=== PATIENT | male | born 1970 | race Caucasian/White ===

== ENCOUNTER → 2019-11-07 10:31 | Outpatient (BNVA) | payer OTHER, SELFPAY | PROVIDERS: Visit Provider Surgery | DX: Z20.828 Contact with and (suspected) exposure to other viral communicable diseases (principal) | CPT/HCPCS: 87635 ==

== ENCOUNTER 2019-11-09 07:33 | Day surgery (SDC) | payer SELFPAY ==
[2019-11-08 13:47] VITALS: BMI 31.1
[2019-11-09 07:47] VITALS: BP 119/69; PULSE 95; RESP 20; TEMP 37; O2SAT 97
[2019-11-09] MEDS: sodium chloride 0.9% 1,000 ML 30 ML IV (07:58)
--- NOTE | 2019-11-09 08:10 | ANES.PREANE2 ---
Pre-Anesthetic Assessment Pre-Anesthetic Assessment: Height/Weight: Height 1.83 m Weight 104.326 kg Temp Pulse Resp BP Pulse Ox 98.6 F 95 20 H 119/69 97 11/09/19 07:47 11/09/19 07:47 11/09/19 07:47 11/09/19 07:47 11/09/19 07:47 Preop Diagnosis: Generalized lymphadenopathy Proposed Procedure: Operation Date: 11/09/19 09:05 Proposed Procedures p Cervical lymph node biopsy [id number] R59.1(Not Applicable) - Owen Contreras MD Familial anesthetic complications: None Was Beta Gill taken within 24 hours: N/A Last intake: Intake Last Liquid Date 11/09/19 Last Liquid Time 06:00 Last Solid Date 11/08/19 Last Solid Time 17:30 Social: Social History: No alcohol and No tobacco Exam: Pre-Anes Outpt Exam: alert, oriented x 3, clear to auscultation bilaterally and regular rate & rhythm Airway: Cervical ROM: WNL MP: 4 Dentition: Chipped Pulmonary: Pulmonary: Cough Comments: Dry cough which patient states is due to pressure from the lymph node on calli neck. patient denies trouble swallowing, changes in voice, or sob Metabolic: Metabolic: Thyroid Anesthetic Plan: ASA status: 3 Anesthesia: MAC Risk of > 500 ml blood loss (7ml/kg in children): No Meds/Allergies Current Medications: Current Medications Generic Name Dose Route Start Last Admin Trade Name Freq PRN Reason Stop Dose Admin Sodium Chloride 1,000 mls @ 30 ml s/hr 11/09/19 07:00 11/09/19 07:58 Sodium Chloride 0.9% IV 11/10/19 06:59 30 mls/hr .Q24H SCOTTIE Administration PFSH Anesthesia PFSH: Medical History (Updated 11/04/19 @ 16:21 by Owen Contreras MD) Anemia Hypothyroid Social History Smoking and tobacco status: never smoked Alcohol intake: never Lives independently: Yes Household members: spouse Marital status: Current occupational status: employed History of recent travel: No Data Anesthesia Cardiac Studies: No Data to Display
--- NOTE | 2019-11-09 08:23 | W.PM.OPSUD ---
Surgery/Procedure H&P Update DATE OF PROCEDURE: November 09, 2019 DATE H&P PERFORMED: 11/04/19 H&P UPDATE INFORMATION: I have reviewed H&P completed within last 30 days, I have examined patient prior to procedure and No changes to prior documentation PREOP DIAGNOSIS: Generalized lymphadenopathy PLANNED PROCEDURE: Operation Date: 11/09/19 09:05 Proposed Procedures p Cervical lymph node biopsy 96307 R59.1(Not Applicable) - Owen Contreras MD
[2019-11-09] MEDS: lidocaine 1% INJ 20 mL SUBCUT (10:00)
[2019-11-09 10:31] VITALS: BP 105/63; PULSE 86; RESP 18; TEMP 36.4; O2SAT 100
[2019-11-09 11:01] VITALS: BP 107/76; PULSE 85; RESP 18; O2SAT 98
--- NOTE | 2019-11-09 11:25 | ANE.PACU2 ---
Inpatient post-anesthesia follow up: Airway intact: Yes Vital signs: Temperature 97.5 F Pulse Rate 85 Respiratory Rate 18 Blood Pressure 107/76 Pulse Oximetry 98 Oxygen Delivery Me thod Room Air Oxygen Flow Rate Fraction of Inspir ed Oxygen Hydration adequate: Yes Nausea and vomiting: No Pain level: 2 Mental status: Baseline
--- NOTE | 2019-11-13 14:05 | PM.OP ---
Operative Report Date of procedure: 11/09/2019 Pre-op Diagnosis: Generalized lymphadenopathy Post-op diagnosis: same Procedure Done: Right posterior triangle deep cervical lymph node biopsy Pathology: Deep cervical lymph node Surgeon: Owen Contreras Anesthesia: MAC Estimated blood loss (mL): 10 Condition: stable Disposition: same day Procedure: The patient was taken to the operating room and placed under MAC after IV antibiotic had been administered. The right side of the neck was prepped and draped in a sterile manner. 1% lidocaine with 0.5% Marcaine was infiltrated around the palpable lymph node posterior to the right sternocleidomastoid. Using a 15 blade a 3 cm incision was made, subcutaneous tissue was divided and the cervical fascia was excised to identify multiple lymph nodes in the posterior triangle. The lymph nodes were grasped and dissected from the surrounding muscle and the lymphovascular bundle was clipped using 5 mm clips. The specimens were sent in saline to pathology. The wound was irrigated saline, superficial fascia is approximated using interrupted 3-0 Vicryl suture and skin was closed using running subcuticular 4-0 Monocryl suture and surgical glue. The patient was transferred to recovery room in stable condition.
[2019-12-14 11:07] LABS: Miscellaneous Test See Scanned Lab Rpt
== END 2019-11-09 11:31 | disposition home or self-care (01) ==
PROVIDERS: PCP Nurse Practitioner Family; Visit Provider Surgery
PROC: (CPT 38525; principal; 2019-11-09 09:05)
DX: R59.1 Generalized enlarged lymph nodes (principal); E03.9 Hypothyroidism, unspecified
CPT/HCPCS: 38525; 12345; 88305; J0690; J2250; J2704; J3490; J7030

== ENCOUNTER 2019-12-06 13:56 | Outpatient (CLI) | payer SELFPAY ==
[2019-12-06 15:50] LABS: Basophils % 0.4 %; Eosinophils # 0.2 10^3/uL (0.0-0.8); Eosinophils % 4.1 %; Lymphocytes # 1.7 10^3/uL (0.8-4.8); Mean Corpuscular HGB Conc 27.7 g/dL (30.0-36.0); Mean Corpuscular Hemoglobin 26.8 pg (28.0-34.0); Mean Corpuscular Volume 96.5 fL (80-94); Mean Platelet Volume 9.7 fL (7.4-10.4); Monocytes # 0.5 10^3/uL (0.2-0.9); Monocytes % 9.2 %; Neutrophils # 2.93 10^3/uL (1.8-7.7); Neutrophils % 51.7 %; Nucleated Red Blood Cells % 0.5 %; Platelet Count 157 10^3/cmm (130-400); Red Blood Count 1.98 10^6/uL (4.1-5.3); Red Cell Distribution Width 21.2 % (12.1-15.1); White Blood Count 5.7 10^3/uL (4.0-10.0)
[2019-12-06 16:20] LABS: Alanine Aminotransferase < 5 U/L (0-41); Albumin Level 3.3 g/dL (3.5-5.2); Alkaline Phosphatase 118 IU/L (40-130); Anion Gap 13.4 (5-19); Aspartate Amino Transferase 20 U/L (0-40); Blood Urea Nitrogen 17 mg/dL (6-20); Calcium 8.8 mg/dL (8.5-10.5); Carbon Dioxide 26 mmol/L (22-29); Chloride 98 mmol/L (98-107); Globulin 3.2 g/dL (1.3-4.6); Glomerular Filtration Rate 42.7 mL/min (90-130); Glucose 108 mg/dL (65-115); Immunoglobulin IGA 104 mg/dL (70-400); Immunoglobulin IGG 1211 mg/dL (700-1600); Immunoglobulin IGM 52 mg/dL (40-230); Lactate Dehydrogenase 311 U/L (135-225); Osmolality Calculated 278 mOsm/kg (285-295); Potassium 4.4 mmol/L (3.5-5.1); Sodium 133 mmol/L (136-145); Total Bilirubin 0.4 mg/dL (0.15-1.2); Total Protein 6.5 g/dL (6.6-8.7)
[2019-12-06 16:30] LABS: Hematocrit 19.1 % (42.0-52.0); Hemoglobin 5.3 g/dL (11.7-16.6)
[2019-12-06 16:31] LABS: Slide Review Slide Review Perform
--- NOTE | 2019-12-06 17:34 | ONC CON_ITS ---
Dr. Mclean New Patient Note Patient: Zhen Reardon Unit #: [id number]: [id number] Dicatated By: aMrci Mclean M.D.Date of Visit: Dec 06, 2019 Onc MED New Patient/Consult Referring Physician: Fletcher MISHRA History of Present Illness: Mr. Zhen Mayfield, is a 49-year-old gentleman with newly diagnosed grade 3A follicular lymphoma per right posterior triangle cervical lymph node biopsy done on November 09, 2019. As per patient, he was in his usual health until about 3 months ago when he started having dry cough and subsequently started feeling weak and tired followed by night sweats and weight loss and generalized body aches and pain requiring Percocet went to see his primary care physician CT scan of chest abdomen pelvis was ordered which showed bulky lymphadenopathy in left axilla, upper anterior and middle mediastinum and also right axillary lymph node involvement. His subcarinal lymph node measures up to 5.1 x 2.6 cm and left axillary lymph node measures up to 4 x 3.7 cm and right axillary lymph node 4.1 x 1.5 cm and numerous enlarged internal mammary chain lymph nodes, lung field no abnormality seen no bony destruction seen, CT scan of abdomen and pelvis showed extensive intra-abdominal lymphadenopathy with massive splenomegaly size about 22 cm, and extensive retroperitoneal, mesenteric, portal adenopathy largest node is in the lindsay hepatis measuring 8.1 x 5.3 x 6.4 cm and numerous bulky masses are observed above this level in periaortic paracaval retroperitoneum and throughout both iliac chains and obturator chains in the lower pelvis no bony lytic lesions seen. No free air seen. Patient was referred to surgery for cervical lymph node biopsy which was done on November 09, 2019 and the final pathology report came back follicular lymphoma, grade 3A, (more than 15 centroblast per high-power field)Immunohistochemistry positive for CD20, PAX 5, CD10, BCL-2, BCL 6 with partial and weakly positive. And Ki-67 was 35 to 40%, MUM1 positive and focus which is partially lacking BCL-2, as per pathology, signifies a higher-grade and consistent with grade 3A. Patient also has significant B symptoms drenching sweating, weight loss more than 10 pounds in the last couple of months despite of good appetite but no fever probably masked by Tylenol in Percocet. Patient also complaining of generalized weakness and fatigue, as per patient he was diagnosed with anemia and now taking oral iron supplement, helping him somewhat. Denies any melena or hematochezia, denies any jaundice, denies any hemoptysis or hematemesis, denies any hematuria but generalized weakness and fatigue and dyspnea on exertion. Patient denies smoking or alcohol use. No family history of lymphoma or blood disorder. Past Medical History: Mr. Reardon's medical history consists of anemia and hypothyroidism. Past Surgical History: Mr. Concepcion surgical/procedural history consists of lymph node removal from neck. Medications: Ferrous Sulfate 1 Tablet (of 325 (65 fe) mg) Oral b.i.d., HYDROcodone-Acetaminophen 1 Tablet (of 5-325 mg) Oral b.i.d., Levothyroxine Sodium 1 Tablet (of 25 mcg) Oral daily Allergies: No Known Allergies. Social History: Mr. Reardon is . Mr. Reardon has never smoked. He has no history of drinking. Family History: Mr. Reardon's mother is : ovarian cancer. Mr. Reardon's father is . Mr. Reardon's maternal grandmother is : myocardial infarction. His maternal grandfather is . His paternal grandmother is . His paternal grandfather is . Review Of Symptoms: Constitutional - Appetite is good but weight is decreasing. No fever. Positive for night sweats. No hot flashes. Energy level is poor, ENMT - No sinus congestion/drainage. No mouth sores. No sore throat or difficulty swallowing, Hematologic/Lymphatic - Positive for easy bruising and bleeding, Respiratory - Positive for shortness of breath and cough. No pleuritic pain or hemoptysis, Cardiovascular - No angina pain. No palpitations, Gastrointestinal - No nausea or vomiting. No heartburn or acid reflux. No diarrhea. Positive for constipation. No blood in the stool or black stools, Genitourinary (M) - No dysuria or hematuria. No urinary frequency. No urgency or incontinence, Musculoskeletal - No joint or bone pain, Neurologic - No headache or dizziness. No numbness or tingling. No other focal neurologic symptoms, Psychiatric - No anxiety or depression. No insomnia. Vital Signs: Performed on Dec 06, 2019 14:35: 0, 40.97 (HIGH), 2.01 sq.m, 62 in, 96 %, 108 /min (HIGH), 19 /min, 118/61 mm(hg), 97.6 F (LOW), and 224 lbs (HIGH). Performance Status: 1 - No physically strenuous activity, but ambulatory and able to carry out light or sedentary work (e.g. office work, light house work). (ECOG) Physical Examination: ENMT - , No mouth sores, no thrush, no jaundice bilateral cervical lymphadenopathy and bilateral axillary lymphadenopathy about 5 cm in size,, Respiratory - Lungs are clear to auscultation, Cardiovascular - Regular rate and rhythm of heart With a flow murmur, Abdomen - Soft, bowel sounds present large spleen palpable in left abdomen, Extremities - No visible edema. Lab/Imaging: Most recent lab results are not available for this patient. Impression: Follicular lymphoma grade 3A per right posterior triangle cervical lymph node biopsy done on November 09, 2019, 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 Ki-67 proliferation index 30 to 40% and MUM1, positive and focus which is partially lacking BCL-2, as per pathology signifies a high-grade and consistency with grade 3A CT scan of chest abdomen pelvis done on November 01, 2019 showed extensive, bulky bilateral axillary lymphadenopathy left axillary lymph node 4 x 3.7 cm right axillary lymph node 4.1 x 1.5 cm and middle mediastinum and anterior mediastinal lymphadenopathy, subcarinal lymph node 5.1 x 2.6 cm and numerous enlarged internal mammary chain lymph nodes and extensive retroperitoneal para-aortic, paracaval lymphadenopathy and largest mass 8.1 x 5.3 x 6.4 cm in the lindsay hepatis posterior to the pancreatic head and anterior to inferior vena cava and numerous bulky masses are observed above this level in the lindsay, throughout the periaortic and paracaval, retroperitoneal and both iliac chain and obturator chains on.pelvis. But no bone abnormality seen and massive splenomegaly size were 22 cm., Clinically, high risk, bulky disease, Poor prognostic features including more than 3 lymph node sites more than 3 cm/more than 7 cm, with B symptoms, anemic and with spleen involvement Anemia, on oral iron per PMD Plan: Discussed with patient regarding his disease status and treatment options, at this point we will proceed with staging work-up which include CT PET scan and also consider Port-A-Cath placement and echocardiogram to assess cardiac status and also obtain baseline CBC CMP and LDH, his previous lab work-up is not available to us at this point, clinically patient looks pale, lethargic could be due to severe anemia. We will obtain stat CBC and CMP, as mentioned above discussed with patient regarding clinical trial, patient would consider evaluation at lymphoma clinic at [place], if clinical trial is available. Otherwise we will consider systemic chemoimmunotherapy, if echocardiogram shows normal ejection fraction, will consider R-CHOP otherwise bendamustine/Rituxan, being high risk, followed by maintenance therapy with Rituxan. Unless patient opted for clinical trial. We will refer him to lymphoma clinic at [place]. In the meantime we will obtain CT PET scan to complete staging work-up and echocardiogram as mentioned above and Port-A-Cath placement.Patient return to clinic after CT PET scan and echocardiogram Signed By: Marci Mclean M.D. <<Signature on File>>
== END 2019-12-06 13:57 | disposition home or self-care (01) ==
LOC: ONCMED 14:01
PROVIDERS: PCP Nurse Practitioner Family; Visit Provider Internal Medicine Hematology & Oncology
DX: C82.38 Follicular lymphoma grade IIIa, lymph nodes of multiple sites (principal); D64.9 Anemia, unspecified
CPT/HCPCS: 36415; 80053; 82784; 83615; 85025; 99205

== ENCOUNTER 2019-12-06 18:49 | Observation (INO) | payer SELFPAY ==
[2019-12-06] VITALS (9 sets, daily range): BP systolic 109–120; BP diastolic 59–74; PULSE 88–103; RESP 14–21; TEMP 36.8–37.2; O2SAT 92–99; BMI 30.9
--- NOTE | 2019-12-06 19:12 | W.ED.GENADLT ---
HPI - General Adult General: Chief complaint: General Medical Stated complaint: phy ref Time Seen by Provider: 12/06/19 19:08 Source: patient Mode of arrival: ambulatory Limitations: no limitations History of Present Illness: HPI narrative: 49-year-old male who is just very recently diagnosed with lymphoma. He been having generalized weakness for the last [address] Lim today to discuss starting treatment options. Dr. Mclean ordered a CBC as he stated he looked pale at his office. Patient's blood came back at 5.6. Patient is pale here. He denies any blood in his stools. Denies any worsening or improving factors. Associated symptoms: Deny chest pain, dyspnea, headache(s), nausea, rash or vomiting Review of Systems Const: Denies: fever(s), chills, body aches or change in appetite Eyes: Denies: blurry vision or eye discomfort ENMT: Denies: throat pain or dental pain Card: Denies: chest pain Resp: Denies: dyspnea GI: Denies: abdominal pain, nausea, vomiting or diarrhea : Denies: dysuria Musc: Reports: muscle weakness Skin/Breast: Denies: rash Neuro: Denies: headache(s) Psych: Denies: depression Ishan/Lymph: Denies: easy bruising All/Imm: Denies: urticaria PFSH ED PFSH: Medical History Anemia Hypothyroid Surgical History S/P lymph node biopsy (11/09/19) Social History Smoking and tobacco status: never smoked Alcohol intake: never Lives independently: Yes Household members: spouse Marital status: Current occupational status: employed History of recent travel: No Physical Exam Const: COMMON NORMALS: no acute distress, patient oriented x3 and healthy appearing HENMT: COMMON NORMALS: normocephalic and atraumatic HEAD & SCALP: normocephalic and atraumatic Eye: COMMON NORMALS: Equal, round and reactive pupils present and EOMs intact bilaterally PUPIL: Yes Equal, round and reactive pupils present Neck/C-Spine: COMMON NORMALS: full ROM and supple Chest: COMMONS NORMALS: normal inspection of the chest and normal palpation of entire chest wall Resp: COMMON NORMALS: normal respiratory effort, No retractions, No use of accessory muscles and clear to auscultation bilaterally AUSCULTATION: clear to auscultation bilaterally Cardio: COMMON NORMALS: regular rate, regular rhythm and No murmurs present (Cardio) RATE: regular rate RHYTHM: regular rhythm GI: COMMON NORMALS: Normal to inspection, nondistended, normoactive bowel sounds present, Soft to palpation, non-tender and no masses PALPATION: Yes Soft to palpation Extremity: COMMON NORMALS: normal to inspection and full ROM Neuro: COMMON NORMALS: patient oriented x3, moves all extremities and no focal motor deficits Psych: COMMON NORMALS: mental status grossly normal, Normal thought process present and cooperative THOUGHT PROCESS: Normal thought process present Skin: COMMON NORMALS: no rashes or lesions noted and no wounds GENERAL SKIN EXAM: no rashes or lesions noted OTHER: pale Course Vital Signs: Vital signs: Vital Signs Temperature 98.3 F 12/06/19 18:58 Pulse Rate 103 H 12/06/19 18:58 Respiratory Rate 16 12/06/19 18:58 Blood Pressure 109/65 12/06/19 18:58 Pulse Oximetry 97 12/06/19 18:58 MDM - General Adult MDM Narrative: Medical decision making narrative: Patient presents here with anemia likely from his lymphoma. This is likely been chronic in nature as he is normotensive here. Patient's CBC today hemoglobin showed 5.3. I spoke to hospitalist and will admit at this time and transfuse. Discharge Plan Discharge Patient Disposition: Admitted As Inpatient Clinical Impression: Lymphoma Anemia Qualifiers: Anemia type: unspecified type Qualified Code(s): D64.9 - Anemia, unspecified Condition: Stable Referrals: Sarai Watt [Primary Care Provider] - Coding Level of Care Code ED Bonderizer Operator for [facility] Fwd Exam Comprehensive
[2019-12-06 19:42] LABS: Mean Corpuscular Hemoglobin 26.9 pg (28.0-34.0); Mean Corpuscular Volume 96.2 fL (80-94); Mean Platelet Volume 9.4 fL (7.4-10.4); Platelet Count 161 10^3/cmm (130-400); Red Blood Count 1.82 10^6/uL (4.1-5.3); Red Cell Distribution Width 21.2 % (12.1-15.1); White Blood Count 5.5 10^3/uL (4.0-10.0)
[2019-12-06 19:45] LABS: Hematocrit 17.5 % (42.0-52.0); Hemoglobin 4.9 g/dL (11.7-16.6)
[2019-12-06 19:57] LABS: Alanine Aminotransferase < 5 U/L (0-41); Albumin Level 2.9 g/dL (3.5-5.2); Alkaline Phosphatase 113 IU/L (40-130); Anion Gap 13.2 (5-19); Aspartate Amino Transferase 20 U/L (0-40); Blood Urea Nitrogen 18 mg/dL (6-20); Calcium 8.7 mg/dL (8.5-10.5); Carbon Dioxide 24 mmol/L (22-29); Chloride 99 mmol/L (98-107); Globulin 3.3 g/dL (1.3-4.6); Glucose 126 mg/dL (65-115); Osmolality Calculated 277 mOsm/kg (285-295); Potassium 4.2 mmol/L (3.5-5.1); Sodium 132 mmol/L (136-145); Total Bilirubin 0.4 mg/dL (0.15-1.2); Total Protein 6.2 g/dL (6.6-8.7)
--- NOTE | 2019-12-06 20:03 | P.HP_ITS ---
Providers/Chief Complaint Primary Care Provider: Sarai Watt Chief Complaint: phy ref History of Present Illness Zhen Reardon is a 49 year old male recently diagnosed to have grade 3A follicular lymphoma based on lymph node biopsy (cervical) after presenting in late October with generalized lymphadenopathy, night sweats, weight loss and fatigue. He is also noted to have extensive mediastinal and retroperitoneal lymphadenopathy. He saw Dr. Mclean in the office today as a new visit and was found to have profound anemia with ~Hb 5. Referred to ER for severe anemia to receive blood transfusion. last known Hb per patient history from 3 months dany was at 7.5. In the ER vital signs stable, except for tacycardia transiently at 130bpm. Quite pale appearing. Denies chest pain or dyapnea. Denies any melena or hematochezia, denies any jaundice, denies any hemoptysis or hematemesis, denies any hematuria. Patient denies smoking or alcohol use. BM biopsy planned as outpatient per him From a disease standpoint he is planned for PET/CT for staging, portacath placement and echocardiogram and then possible chrmoimmunotherapy vs clinical trial consideration at [place]. Review of Systems General: Reports: 10 or more systems reviewed and unremarkable except in HPI and below Const: Reports: body aches; Denies: fever(s) or chills Eyes: Denies: change in vision, blurry vision or photophobia ENMT: Denies: throat pain, enlarged tonsils, odynophagia, hoarseness or nasal congestion Card: Reports: palpitations; Denies: chest pain, irregular heart rhythm, edema, swelling of feet/ankles, lightheadedness, pre-syncope, dyspnea on exertion or orthopnea Resp: Denies: dyspnea, productive cough, non-productive cough, wheezing, stridor, pain on inspiration, change in phlegm color, hemoptysis or chest congestion GI: Denies: abdominal pain, nausea, vomiting, hematemesis, coffee ground emesis, dysphagia, heartburn, diarrhea, constipation, GI cramping, change in stool character, hematochezia or melena : Denies: flank pain, dysuria, urinary frequency, urinary urgency, urinary hesitancy or hematuria Musc: Denies: neck pain, back pain, extremity pain, joint swelling, joint warmth or deformity Neuro: Denies: headache(s), numbness in extremities, weakness in extremities, sensory changes, difficulty walking, frequent falls, dizziness, vertigo, behavioral changes, Slurred speech present or seizure-like activity Psych: Denies: anxiety, depression, suicidal ideation or homicidal ideation Endo: Denies: polyuria, polydipsia, tired all the time, cold intolerance or hot flashes Ishan/Lymph: Denies: easy bruising or easy bleeding Medications/Allergies Home Medications Medication Instructions Recorded Confirmed Last Taken Type ferrous sulfate 325 mg (65 mg 325 mg PO BID 11/04/19 12/06/19 12/06/19 History iron) tablet levothyroxine 25 mcg capsule 25 mcg PO DAILY 11/04/19 12/06/19 12/06/19 History hydrocodone 5 mg-acetaminophen 325 1 tab PO Q6H PRN 7 Days #20 tab 11/23/19 12/06/19 12/06/19 Rx mg tablet Allergies Allergy/AdvReac Type Severity Reaction Status Date / Time No Known Allergies Allergy Verified 12/06/19 19:02 PFSH Acute PFSH: Medical History (Updated 12/07/19 @ 00:20 by Melida Muñoz MD) Anemia Hypothyroid Lymphoma Surgical History S/P lymph node biopsy (11/09/19) Family History Other CAD (coronary artery disease) Cancer Social History Smoking and tobacco status: never smoked Alcohol intake: never Lives independently: Yes Household members: spouse Marital status: Current occupational status: employed History of recent travel: No Vitals/I&O/Wt Last Vital Signs Temp 98.3 F 12/06/19 18:58 Pulse 99 12/06/19 19:19 Resp 17 12/06/19 19:19 BP 120/69 12/06/19 19:19 Pulse Ox 92 12/06/19 19:19 Weight last 48 hrs Weight 103.419 kg Physical Exam Const: COMMON NORMALS: no acute distress, average body habitus, patient oriented x3, no limitations and alert; negative for healthy appearing HENMT: COMMON NORMALS: normocephalic and atraumatic HEAD & SCALP: normocephalic and atraumatic Eye: COMMON NORMALS: Equal, round and reactive pupils present, EOMs intact bilaterally, conjunctivae normal and no scleral icterus CONJUNCTIVA: Yes conjunctivae normal PUPIL: Yes Equal, round and reactive pupils present OTHER: Pallor+ Neck/C-Spine: COMMON NORMALS: no JVD Resp: COMMON NORMALS: normal respiratory effort, No retractions, No use of accessory muscles, clear to auscultation bilaterally and percussion normal AUSCULTATION: clear to auscultation bilaterally PERCUSSION: percussion normal Cardio: COMMON NORMALS: no JVD, regular rate, regular rhythm, S1 normal heart sound present, S2 normal heart sound present, No gallops present (Cardio), No clicks present (Cardio), No murmurs present (Cardio), No rub (Cardio) and Peripheral pulses 2+ throughout RATE: regular rate RHYTHM: regular rhythm HEART SOUNDS: S1 normal heart sound present and S2 normal heart sound present PERIPHERAL PULSES: Peripheral pulses 2+ throughout GI: COMMON NORMALS: Normal to inspection, nondistended, normoactive bowel sounds present, Soft to palpation, non-tender, No hepatosplenomegaly present, no masses and no bruits PALPATION: Yes Soft to palpation and Yes No hepatosplenomegaly present Extremity: COMMON NORMALS: normal to inspection, full ROM, capillary refill normal, no joint enlargement, no clubbing, cyanosis or edema, no calf tenderness and no pedal edema Neuro: COMMON NORMALS: patient oriented x3, CN's II-XII intact bilaterally, moves all extremities, no focal motor deficits, no sensory deficits noted, deep tendon reflexes 2+ bilaterally and gait normal SENSORIUM/ORIENTATION: Yes a lert Psych: COMMON NORMALS: mental status grossly normal, Normal thought process present, cooperative, normal affect, speech normal, activity/motor behavior normal, denies hallucinations, denies homicidal ideation and denies suicidal ideation SPEECH: Yes normal speech THOUGHT PROCESS: Normal thought process present Skin: COMMON NORMALS: no rashes or lesions noted, no wounds, turgor normal, no jaundice, no petechiae and no mottling GENERAL SKIN EXAM: no rashes or lesions noted and turgor normal Data : 12/06/19 19:30 12/06/19 19:30 Other data: CT scan of chest abdomen pelvis done on November 01, 2019 showed extensive, bulky bilateral axillary lymphadenopathy left axillary lymph node 4 x 3.7 cm right axillary lymph node 4.1 x 1.5 cm and middle mediastinum and anterior mediastinal lymphadenopathy, subcarinal lymph node 5.1 x 2.6 cm and numerous enlarged internal mammary chain lymph nodes and extensive retroperitoneal para-aortic, paracaval lymphadenopathy and largest mass 8.1 x 5.3 x 6.4 cm in the [place] hepatis posterior to the pancreatic head and anterior to inferior vena cava and numerous bulky masses are observed above this level in the [place], throughout the periaortic and paracaval, retroperitoneal and both iliac chain and obturator chains on.pelvis. But no bone abnormality seen and massive splenomegaly size were 22 cm., Clinically, high risk, bulky disease, Poor prognostic features including more than 3 lymph node sites more than 3 cm/more than 7 cm, with B symptoms, anemic and with spleen involvement A&P Assessment and plan (1) Severe anemia: Status: Acute (2) Follicular lymphoma grade 3a: Status: Acute Qualifiers: Lymphoma site: multiple regions Qualified Code(s): C82.38 - Follicular lymphoma grade IIIa, lymph nodes of multiple sites (3) Generalized lymphadenopathy: Status: Acute (4) RIC (acute kidney injury): Status: Acute Additional A&P Information 49M with newly diagnosed follicular lymphoma, at least stage 3a clinically presented to outpatient heme/onc today as a new patient and found to have severe anemia with Hb ~5 and sent to ER for transfusion # Anemia, currently Hb at 4.9, last known from 3 months ago at 7.5 per patient history No concomitant leukopenia or thrombocytopenia May be related to malignancy however given only anemia with normal WBC and Plt, exclude other causes as well check FOBT, iron panel, B12, folate levels, haptoglobin level, TSH 3 units transfusion ordered in ER - recheck labs after transfusion Transiently tachycardic, may be related to anemia, reports easy fatiguability, however now vitals WNL with HR 96 and BP 113/59 # newly diagnosed follicular lymphoma management per oncology planned for PET/CT, BM biopsy, echocardiogram and port a cath as outpatient Check HIV Ag/AB screen with am labs continue Percocet for pain management # RIC, cr at 1.8, unknown past baseline- obtain last known baseline from PCP office in am. Check UA and urine lytes, urine creatinine # Hypothyroidism: Continue home dose of levothyroxine at 25po daily. Check TSH Full code DVT ppx: SCDs only given anemia Attestations Medical Necessity Statement*: anticipate less than 2 midnight admission for symptomatic anemia, blood transfusion Coding Level of Care Code Acute Alterations Workroom Clerk for Chg Fwd Diagnoses Severe anemia D64.9 Follicular lymphoma grade 3a C82.38 Lymphoma site: multiple regions Generalized lymphadenopathy R59.1 RIC (acute kidney injury) N17.9
[2019-12-06 20:45] LABS: Slide Review Slide Review Perform
[2019-12-06 20:48] LABS: Absolute Neutrophil 3.5 10^3/cmm (1.4-6.5); Absolute Segmented Neutrophil 3.2 10/cmm (1.6-7.1); Anisocytosis 2+; Band Neutrophils Absolute 0.3 10^3/cmm (0.0-1.2); Eosinophils 1 %; Hypochromasia 1+; Lymphocytes 26 %; Microcytosis 1+; Monocytes Absolute 0.5 10^3/cmm (0.1-0.6); Platelet Estimate Normal (Normal); Poikilocytosis 1+; Segmented Neutrophils 58 %; Total Cells Counted 100 (0-100)
[2019-12-06 20:49] LABS: Macrocytosis 1+
[2019-12-06] MEDS: sodium chloride 0.9% (100 ml) 100 ML 50 ML (22:07)
[2019-12-06 22:41] LABS: Unsaturated Iron Binding 151 ug/dL (112-347)
[2019-12-06 23:17] LABS: Ferritin 372 ng/mL (30-400)
[2019-12-06 23:40] LABS: Thyroid Stimulating Hormone 15.41 uIU/mL (0.27-4.20)
[2019-12-07] VITALS (25 sets, daily range): BP systolic 110–131; BP diastolic 62–86; PULSE 68–101; RESP 14–20; TEMP 36.8–37.3; O2SAT 92–96
[2019-12-07 01:00] LABS: Iron 10 ug/dL (59-158); Percent Saturation 6.2 % (20-50); Total Iron Binding Capacity 161 mcg/dl
[2019-12-07 01:33] LABS: Free T4 Free Thyroxine 1.04 ng/dL (0.82-1.77); T3 Free 1.4 PG/ML (2.0-4.4)
[2019-12-07] MEDS: sodium chloride 0.9% (100 ml) 100 ML 50 ML ×2 (04:40→04:41)
[2019-12-07] MEDS: levothyroxine 25 mcg Tablet PO (08:50)
[2019-12-07 09:00] LABS: Hematocrit 25.2 % (42.0-52.0); Hemoglobin 7.5 g/dL (11.7-16.6); Mean Corpuscular HGB Conc 29.8 g/dL (30.0-36.0); Mean Corpuscular Hemoglobin 28.1 pg (28.0-34.0); Mean Corpuscular Volume 94.4 fL (80-94); Mean Platelet Volume 9.6 fL (7.4-10.4); Platelet Count 163 10^3/cmm (130-400); Red Blood Count 2.67 10^6/uL (4.1-5.3); Red Cell Distribution Width 18.7 % (12.1-15.1)
[2019-12-07 09:18] LABS: Alanine Aminotransferase < 5 U/L (0-41); Albumin Level 3.1 g/dL (3.5-5.2); Alkaline Phosphatase 112 IU/L (40-130); Anion Gap 14.3 (5-19); Aspartate Amino Transferase 19 U/L (0-40); Blood Urea Nitrogen 17 mg/dL (6-20); Calcium 8.5 mg/dL (8.5-10.5); Carbon Dioxide 24 mmol/L (22-29); Chloride 99 mmol/L (98-107); Globulin 3.2 g/dL (1.3-4.6); Glucose 117 mg/dL (65-115); Osmolality Calculated 279 mOsm/kg (285-295); Potassium 4.3 mmol/L (3.5-5.1); Sodium 133 mmol/L (136-145); Total Bilirubin 0.8 mg/dL (0.15-1.2); Total Protein 6.3 g/dL (6.6-8.7)
[2019-12-07 09:42] LABS: Slide Review Slide Review Perform
[2019-12-07 09:45] LABS: Absolute Eosinophils 0.1 10^3/cmm (0.0-0.7); Absolute Neutrophil 3.5 10^3/cmm (1.4-6.5); Absolute Segmented Neutrophil 2.8 10/cmm (1.6-7.1); Band Neutrophils Absolute 0.8 10^3/cmm (0.0-1.2); Eosinophils 3 %; Hypochromasia 1+; Lymphocytes 28 %; Monocytes Absolute 0.2 10^3/cmm (0.1-0.6); Platelet Estimate Normal (Normal); Segmented Neutrophils 46 %; Total Cells Counted 100 (0-100)
[2019-12-07 09:46] LABS: Anisocytosis 1+
[2019-12-07 09:51] LABS: Potassium, Radom Urine 57 mmol/L; Urine Creatinine 168 mg/dL (39-259); Urine Random Chloride 101 mmol/L; Urine Random Sodium 99 mmol/L
[2019-12-07 09:57] LABS: Urine Appearance Clear (CLEAR); Urine Color Yellow (Yellow)
[2019-12-07 09:58] LABS: Add Urine Culture? No; Bacteria Urine 2+ /hpf; Bilirubin Urine 1+ (Negative); Blood Urine Neg (Negative); Glucose Urine UA Norm (Normal); Ketones Urine Negative (Negative); Leukocyte Esterase Urine Negative (Negative); Mucus Urine 1+ /hpf; Nitrate Urine Negative (Negative); Protein Urine Neg (Negative); Specific Gravity, Urine 1.015 (1.005-1.030); Squamous Epithelial Cell Urine 0-4 /hpf (0-5); Urobilinogen Urine Norm (Negative); WBC Urine 0-4 /hpf (0-5)
[2019-12-07 10:23] LABS: HIV 1 & 2 Antibody Non-Reactive (Non-Reactiv); HIV 1 & 2 Antigen Non-Reactive (Non-Reactiv)
--- NOTE | 2019-12-07 10:24 | USCV_ITS ---
Zhen Reardon Age: 49 Gender: M : 1970 Exam Date: 12/07/2019 16:06 Ordering Phys: Skip Negrete MD Technologist: Whitley Bernardo [place]am [place] [facility] [place]: ANEMIA BP: 130 / 75 HR: 91 Rhythm: Sinus Technical Quality: Adequate MEASUREMENTS (Male / Female) Normal Values 2D ECHO LV Diastolic Diameter PLAX 4.6 cm 4.2 - 5.9 / 3.9 - 5.3 cm LV Systolic Diameter PLAX 3.7 cm LV Chamber Size 4.7 cm IVS Diastolic Thickness 1.2 cm 0.6 - 1.0 / 0.6 - 0.9 cm IVS Systolic Thickness 1.3 cm LVPW Diastolic Thickness 1.6 cm 0.6 - 1.0 / 0.6 - 0.9 cm LVPW Systolic Thickness 1.6 cm RV Chamber Size 2.0 cm LVOT Diameter 2.0 cm LV Ejection Fraction 2D Teich 40.3 % LV Ejection Fraction MOD 2C 69.5 % LV Ejection Fraction 2C AL 70.1 % LA Diameter 4.5 cm LA Width 2.8 cm LA Height 4.4 cm RA Width 4.1 cm RA Height 5.2 cm Aorta at Sinotubular Diameter 4.0 cm M-MODE LV Diastolic Diameter MM 5.7 cm 4.2 - 5.9 / 3.9 - 5.3 cm LV Systolic Diameter MM 3.4 cm LV Ejection Fraction MM Teich 71.0 % IVS Diastolic Thickness MM 0.7 cm 0.6 - 1.0 / 0.6 - 0.9 cm IVS Systolic Thickness MM 1.4 cm LVPW Diastolic Thickness MM 1.4 cm 0.6 - 1.0 / 0.6 - 0.9 cm LVPW Systolic Thickness MM 2.0 cm RV Diastolic Diameter MM 1.0 cm Aortic Annulus Diameter 3.8 cm LA Ao Ratio MM 1.5 MV E Point Septal Separation 0.5 cm DOPPLER AV Peak Velocity 139.0 cm/s LVOT Peak Velocity 128.0 cm/s AV Area Cont Eq vti 2.8 cm squared AV Area Cont Eq pk 2.9 cm squared MV Area PHT 6.3 cm squared Mitral E to A Ratio 0.9 MV E' Velocity 56.5 cm/s Mitral E to MV E' Ratio 6.3 Mitral E to LV E' Lateral Ratio 6.0 Mitral E to LV E' Septal Ratio 6.6 TR Peak Velocity 272.3 cm/s TR Peak Gradient 29.7 mmHg TR Mean Velocity 218.9 cm/s TR Mean Gradient 20.1 mmHg TR Velocity Time Integral 55.6 cm TV Peak E Velocity 84.0 cm/s PV Peak Velocity 84.0 cm/s RV Acceleration Time 0.2 s RV Ejection Time 0.3 s RV AcT/ET 0.7 FINDINGS Left Ventricle Normal left ventricular cavity size. Normal left ventricular systolic function. No regional wall motion abnormalities. Left ventricular ejection fraction is estimated at 65 %. Grade I/IV diastolic dysfunction (abnormal relaxation filling pattern), normal to mildly elevated filling pressures. Right Ventricle The right ventricle is normal in size and function. RVSP could not be calculated due to incomplete tricuspid regurgitation velocity profile. Right Atrium The right atrium is normal in size. Left Atrium The left atrium is normal in size. Mitral Valve Structurally normal mitral valve without significant stenosis or prolapse. There is no mitral regurgitation. Aortic Valve Structurally normal aortic valve without significant sclerosis or stenosis. There is no aortic regurgitation. Tricuspid Valve Mild tricuspid valve regurgitation. Pulmonic Valve Structurally normal pulmonic valve without significant stenosis. There is no pulmonic regurgitation. Pericardium Normal pericardium without effusion. Aorta Normal ascending aorta dimension. CONCLUSIONS 1-Normal left ventricular cavity size. Normal left ventricular systolic function. No regional wall motion abnormalities. Left ventricular ejection fraction is estimated at 65 %. Grade I/IV diastolic dysfunction (abnormal relaxation filling pattern), normal to mildly elevated filling pressures. 2-The right ventricle is normal in size and function. RVSP could not be calculated due to incomplete tricuspid regurgitation velocity profile. 3-There is no pericardial effusion. 4-Mild tricuspid valve regurgitation. 5-Right atrial pressure is around 5 mm of mercury. 6-There are no prior echocardiogram studies to compare. Aamir Orellana MD (Electronically Signed) Final Date: 08 December 2019 19:32 S
--- NOTE | 2019-12-07 11:11 | PC.NURSE ---
rcvd call from [facility] stating blood is ready. Notified Doe Herrera that blood is ready.
--- NOTE | 2019-12-07 12:01 | P.DS_ITS ---
Discharge Providers Date of Admission: 12/06/19 19:31 Date of Discharge: December 07, 2019 Attending Provider at Admission: Melida Muñoz MD Attending Provider at Discharge: Skip Negrete MD Primary Care Provider: Sarai Martinez at Discharge Discharge Diagnosis (1) Severe anemia: Status: Acute Problem details: Concern this may be related to his follicular lymphoma. No evidence of active blood loss. Oncology planning on outpatient bone marrow. (2) Follicular lymphoma grade 3a: Status: Acute Problem details: To have follow-up with oncology, Thursday Qualifiers: Lymphoma site: multiple regions Qualified Code(s): C82.38 - Follicular lymphoma grade IIIa, lymph nodes of multiple sites (3) Generalized lymphadenopathy: Status: Acute Problem details: Secondary to follicular lymphoma (4) RIC (acute kidney injury): Status: Acute Problem details: May have component of chronic kidney disease. May be related to follicular lym phoma. Creatinine stable at 1.8. Avoid all anti-inflammatories. Reason for Visit Reason for Visit: phy ref Hospital Course Hospital Course: Zhen is a 49-year-old white male who presents to the hospital with severe anemia noted at his hematology visit for follicular lymphoma.. Hemoglobin was 5.3. Patient believes it was upper 7 several months ago. He was admitted to the hospital and transfused 3 units of packed red blood cells. Following this his hemoglobin was 7.5 and 1 additional unit was ordered secondary to the likelihood of bone marrow issues associated with his malignancy. Creatinine of 1.8 was also noted, suspected to be chronic. Patient felt much better after transfusion, and was ready for follow-up as an outpatient with oncology in approximately 4 days for consideration of chemotherapy. An echocardiogram was performed secondary to history of dyspnea, baseline echocardiogram prior to administering chemotherapy that has likelihood of cardiotoxicity. Results were pending at discharge. He was instructed not to take any anti-inflammatories, secondary to renal disease that was discovered. Primary care provider can determine whether further work-up is indicated. Physical Exam Narrative: EXAM NARRATIVE: General exam no apparent distress Cardiovascular regular in rhythm without murmur Lungs clear Abdomen is soft positive bowel sounds Extremities no cyanosis clubbing or edema Discharge Data Data Completed and Pending: Pending at discharge Category Date Time Status Immunochemical Fe nestor OCB Routine Lab 12/07/19 00:21 Uncollected Leukocyte Reduced RBC Stat Lab 12/06/19 19:30 Results Type and Screen S tat Lab 12/06/19 19:30 Results CV echo complete* [id number] Routine Ultrasound 12/07/19 10:24 Ordered Labs from last 24 hours 12/07/19 12/07/19 12/07/19 09:00 09:00 08:34 WBC RBC Hgb Hct MCV MCH MCHC RDW Plt Count MPV Neut % (Auto) Lymph % (Auto) [place] % (Auto) Eos % (Auto) Baso % (Auto) Neut # (Auto) Lymph # (Auto) [place] # (Auto) Eos # (Auto) Baso # (Auto) Nucleated RBC % (a uto) Total Counted Atypical Lymphs % Absolute Neutrophi ls Segmented Neutroph ils Abs Segm Neuts (Ma n) Band Neutrophils Abs Band Neuts (Ma n) Lymphocytes (Manua l) Monocytes (Manual) Absolute Monocytes Eosinophils (Manua l) Absolute Eosinophi ls Basophils (Manual) Absolute Basophils Metamyelocytes Nucleated RBCs Nucleated RBCs # Platelet Estimate Hypochromasia Poikilocytosis Anisocytosis Microcytosis Macrocytosis Haptoglobin Sodium Potassium Chloride Carbon Dioxide Anion Gap BUN Creatinine GFR Calculation Glucose Calculated Osmolal ity Calcium Iron TIBC % Saturation Unsat Iron Binding Ferritin Total Bilirubin AST ALT Alkaline Phosphata se Total Protein Albumin Globulin TSH Free T4 Free T3 Urine Color Yellow Urine Appearance Clear Urine pH 5.0 Ur Specific Gravit y 1.015 Urine Protein Neg Urine Glucose (UA) Norm Urine Ketones Negative Urine Blood Neg Urine Nitrate Negative Urine Bilirubin 1+ H Urine Urobilinogen Norm Ur Leukocyte Manuela ase Negative Urine RBC None Urine WBC 0-4 H Ur Squamous Epith Cells 0-4 H Amorphous Sediment Not Reportable Urine Bacteria 2+ H Urine Mucus 1+ Ur Random Sodium 99 Ur Random Potassiu m 57 Ur Random Chloride 101 Urine Creatinine 168 HIV 1&2 Ab & HIV 1 Ag Non-reactive HIV 1&2 Antibody Non-reactive Blood Type Rho(D) Type Antibody Screen Crossmatch 12/07/19 12/07/19 12/06/19 08:34 08:34 19:40 WBC 6.0 RBC 2.67 L Hgb 7.5 L D Hct 25.2 L D MCV 94.4 H MCH 28.1 MCHC 29.8 L D RDW 18.7 H Plt Count 163 MPV 9.6 Neut % (Auto) Lymph % (Auto) Not Reportable [place] % (Auto) Not Reportable Eos % (Auto) Baso % (Auto) Neut # (Auto) Lymph # (Auto) Not Reportable [place] # (Auto) Not Reportable Eos # (Auto) Baso # (Auto) Nucleated RBC % (a uto) Total Counted 100 Atypical Lymphs % 1.0 Absolute Neutrophi ls 3.5 Segmented Neutroph ils 46 Abs Segm Neuts (Ma n) 2.8 Band Neutrophils 13.0 Abs Band Neuts (Ma n) 0.8 Lymphocytes (Manua l) 28 Monocytes (Manual) 4.0 Absolute Monocytes 0.2 Eosinophils (Manua l) 3 Absolute Eosinophi ls 0.1 Basophils (Manual) 0.0 Absolute Basophils 0.0 Metamyelocytes 5.0 Nucleated RBCs Nucleated RBCs # Platelet Estimate Normal Hypochromasia 1+ H Poikilocytosis Anisocytosis 1+ H Microcytosis Macrocytosis Haptoglobin Sodium 133 L Potassium 4.3 Chloride 99 Carbon Dioxide 24 Anion Gap 14.3 BUN 17 Creatinine 1.8 H GFR Calculation 40.0 L Glucose 117 H Calculated Osmolal ity 279 L Calcium 8.5 Iron TIBC % Saturation Unsat Iron Binding Ferritin 372 Total Bilirubin 0.8 AST 19 ALT < 5 Alkaline Phosphata se 112 Total Protein 6.3 L Albumin 3.1 L Globulin 3.2 TSH Free T4 Free T3 Urine Color Urine Appearance Urine pH Ur Specific Gravit y Urine Protein Urine Glucose (UA) Urine Ketones Urine Blood Urine Nitrate Urine Bilirubin Urine Urobilinogen Ur Leukocyte Manuela ase Urine RBC Urine WBC Ur Squamous Epith Cells Amorphous Sediment Urine Bacteria Urine Mucus Ur Random Sodium Ur Random Potassiu m Ur Random Chloride Urine Creatinine HIV 1&2 Ab & HIV 1 Ag HIV 1&2 Antibody Blood Type Rho(D) Type Antibody Screen Crossmatch 12/06/19 12/06/19 12/06/19 19:30 19:30 19:30 WBC RBC Hgb Hct MCV MCH MCHC RDW Plt Count MPV Neut % (Auto) Lymph % (Auto) [place] % (Auto) Eos % (Auto) Baso % (Auto) Neut # (Auto) Lymph # (Auto) [place] # (Auto) Eos # (Auto) Baso # (Auto) Nucleated RBC % (a uto) Total Counted Atypical Lymphs % Absolute Neutrophi ls Segmented Neutroph ils Abs Segm Neuts (Ma n) Band Neutrophils Abs Band Neuts (Ma n) Lymphocytes (Manua l) Monocytes (Manual) Absolute Monocytes Eosinophils (Manua l) Absolute Eosinophi ls Basophils (Manual) Absolute Basophils Metamyelocytes Nucleated RBCs Nucleated RBCs # Platelet Estimate Hypochromasia Poikilocytosis Anisocytosis Microcytosis Macrocytosis Haptoglobin 392.0 H Sodium Potassium Chloride Carbon Dioxide Anion Gap BUN Creatinine GFR Calculation Glucose Calculated Osmolal ity Calcium Iron TIBC % Saturation Unsat Iron Binding Ferritin Total Bilirubin AST ALT Alkaline Phosphata se Total Protein Albumin Globulin TSH 15.41 H Free T4 1.04 Free T3 1.4 L Urine Color Urine Appearance Urine pH Ur Specific Gravit y Urine Protein Urine Glucose (UA) Urine Ketones Urine Blood Urine Nitrate Urine Bilirubin Urine Urobilinogen Ur Leukocyte Manuela ase Urine RBC Urine WBC Ur Squamous Epith Cells Amorphous Sediment Urine Bacteria Urine Mucus Ur Random Sodium Ur Random Potassiu m Ur Random Chloride Urine Creatinine HIV 1&2 Ab & HIV 1 Ag HIV 1&2 Antibody Blood Type Rho(D) Type Antibody Screen Crossmatch 12/06/19 12/06/19 12/06/19 19:30 19:30 19:30 WBC RBC Hgb Hct MCV MCH MCHC RDW Plt Count MPV Neut % (Auto) Lymph % (Auto) [place] % (Auto) Eos % (Auto) Baso % (Auto) Neut # (Auto) Lymph # (Auto) [place] # (Auto) Eos # (Auto) Baso # (Auto) Nucleated RBC % (a uto) Total Counted Atypical Lymphs % Absolute Neutrophi ls Segmented Neutroph ils Abs Segm Neuts (Ma n) Band Neutrophils Abs Band Neuts (Ma n) Lymphocytes (Manua l) Monocytes (Manual) Absolute Monocytes Eosinophils (Manua l) Absolute Eosinophi ls Basophils (Manual) Absolute Basophils Metamyelocytes Nucleated RBCs Nucleated RBCs # Platelet Estimate Hypochromasia Poikilocytosis Anisocytosis Microcytosis Macrocytosis Haptoglobin Sodium 132 L Potassium 4.2 Chloride 99 Carbon Dioxide 24 Anion Gap 13.2 BUN 18 Creatinine 1.8 H GFR Calculation 40.0 L Glucose 126 H Calculated Osmolal ity 277 L Calcium 8.7 Iron Cancelled 10 L TIBC 161 % Saturation 6.2 L Unsat Iron Binding 151 Ferritin Total Bilirubin 0.4 AST 20 ALT < 5 Alkaline Phosphata se 113 Total Protein 6.2 L Albumin 2.9 L Globulin 3.3 TSH Free T4 Free T3 Urine Color Urine Appearance Urine pH Ur Specific Gravit y Urine Protein Urine Glucose (UA) Urine Ketones Urine Blood Urine Nitrate Urine Bilirubin Urine Urobilinogen Ur Leukocyte Manuela ase Urine RBC Urine WBC Ur Squamous Epith Cells Amorphous Sediment Urine Bacteria Urine Mucus Ur Random Sodium Ur Random Potassiu m Ur Random Chloride Urine Creatinine HIV 1&2 Ab & HIV 1 Ag HIV 1&2 Antibody Blood Type O Negative Rho(D) Type Negative Antibody Screen Negative Crossmatch See Detail 12/06/19 19:30 WBC 5.5 RBC 1.82 L Hgb 4.9 L* Hct 17.5 L* MCV 96.2 H MCH 26.9 L MCHC 28.0 L RDW 21.2 H Plt Count 161 MPV 9.4 Neut % (Auto) Labor Relations Or Personnel Negotiator Lymph % (Auto) [employer] Personnel Negotiator [place] % (Auto) Labor Relations [employer] Personnel Negotiator Eos % (Auto) [employer] Personnel Negotiator Baso % (Auto) [employer] Personnel Negotiator Neut # (Auto) [employer] Personnel Negotiator Lymph # (Auto) [employer] Relations Or Personnel Negotiator [place] # (Auto) Labor Relations Or Personnel Negotiator Eos # (Auto) Labor Relations Or Personnel Negotiator Baso # (Auto) Labor Relations Or Personnel Negotiator Nucleated RBC % (a uto) Labor Relations Or Personnel Negotiator Total Counted 100 Atypical Lymphs % Not Reportable Absolute Neutrophi ls 3.5 Segmented Neutroph ils 58 Abs Segm Neuts (Ma n) 3.2 Band Neutrophils 6.0 Abs Band Neuts (Ma n) 0.3 Lymphocytes (Manua l) 26 Monocytes (Manual) 9.0 Absolute Monocytes 0.5 Eosinophils (Manua l) 1 Absolute Eosinophi ls 0.0 Basophils (Manual) 0.0 Absolute Basophils 0.0 Metamyelocytes Nucleated RBCs 2.0 H Nucleated RBCs # Labor Relations Or Personnel Negotiator Platelet Estimate Normal Hypochromasia 1+ H Poikilocytosis 1+ H Anisocytosis 2+ H Microcytosis 1+ H Macrocytosis 1+ H Haptoglobin Sodium Potassium Chloride Carbon Dioxide Anion Gap BUN Creatinine GFR Calculation Glucose Calculated Osmolal ity Calcium Iron TIBC % Saturation Unsat Iron Binding Ferritin Total Bilirubin AST ALT Alkaline Phosphata se Total Protein Albumin Globulin TSH Free T4 Free T3 Urine Color Urine Appearance Urine pH Ur Specific Gravit y Urine Protein Urine Glucose (UA) Urine Ketones Urine Blood Urine Nitrate Urine Bilirubin Urine Urobilinogen Ur Leukocyte Manuela ase Urine RBC Urine WBC Ur Squamous Epith Cells Amorphous Sediment Urine Bacteria Urine Mucus Ur Random Sodium Ur Random Potassiu m Ur Random Chloride Urine Creatinine HIV 1&2 Ab & HIV 1 Ag HIV 1&2 Antibody Blood Type Rho(D) Type Antibody Screen Crossmatch Vitals: Last Vital Signs Temp 99.1 F 12/07/19 11:45 Pulse 75 12/07/19 11:45 Resp 18 12/07/19 11:45 BP 111/71 12/07/19 11:45 Pulse Ox 94 12/07/19 11:45 Discharge Plan Discharge Condition: Stable Prescriptions: New levothyroxine 50 mcg Tablet 50 mcg PO DAILY Qty: 30 RF: 0 Continued hydrocodone-acetaminophen [Eden] 5-325 mg tablet 1 tab PO Q6H PRN (Reason: pain) 7 Days Qty: 20 RF: 0 ferrous sulfate [Feosol] 325 mg (65 mg iron) tablet 325 mg PO BID RF: 0 Discontinued levothyroxine 25 mcg capsule 25 mcg PO DAILY RF: 0 Discharge Orders: Discharge Order (Routine); Ordered 12/07/19 Ordered By: Skip Negrete Discharge Diet: Regular Discharge Activity: Increase activity as tolerated Discharge Attestations Time Spent in Discharge Care*: greater than 30 min Quality Metrics Clinical Quality Measures During this hospital stay, did patient experience: None Coding Level of Care Code Acute Sales Promotion Coordinator for Chg Fwd Diagnoses Severe anemia D64.9 Follicular lymphoma grade 3a C82.38 Lymphoma site: multiple regions Generalized lymphadenopathy R59.1 RIC (acute kidney injury) N17.9
[2019-12-07] MEDS: sodium chloride 0.9% (100 ml) 100 ML (13:27)
== END 2019-12-07 16:57 | disposition home or self-care (01) ==
LOC: ER 19:30 → MEDSURG 20:32
PROVIDERS: Admitting Provider Student in an Organized Health Care Education/Training Program; Emergency Provider Emergency Medicine; PCP Nurse Practitioner Family; Visit Provider Internal Medicine
DX: D64.9 Anemia, unspecified (principal); C82.38 Follicular lymphoma grade IIIa, lymph nodes of multiple sites; R59.1 Generalized enlarged lymph nodes; N17.9 Acute kidney failure, unspecified; E03.9 Hypothyroidism, unspecified
CPT/HCPCS: 12345; 36415; 36430; 80053; 81001; 82436; 82570; 82728; 83010; 83540; 83550; 84133; 84300; 84439; 84443; 84481; 85007; 85025; 86850; 86900; 86920; 87806; 93306; 96360; 96361; 99283; 99285; G0378; P9016; P9040

== ENCOUNTER → 2019-12-15 11:03 | Outpatient (BNVA) | payer OTHER, SELFPAY | PROVIDERS: PCP Nurse Practitioner Family; Visit Provider Surgery | DX: Z11.59 Encounter for screening for other viral diseases (principal); C82.38 Follicular lymphoma grade IIIa, lymph nodes of multiple sites | CPT/HCPCS: 87635 ==

== ENCOUNTER 2019-12-19 07:23 | Day surgery (SDC) | payer SELFPAY ==
[2019-12-16 12:52] VITALS: BMI 29.8
--- NOTE | 2019-12-19 | SCC_ITS ---
Procedure Done: Placement of PowerPort in the left subclavian vein 47.3 seconds of fluoroscopic guidance, for a cumulative dose of 9.99 mGy, was provided to Dr. Contreras by the radiology department. C-arm images of the chest were saved for the patient's permanent record. [facility]
[2019-12-19 07:42] VITALS: BP 125/69; PULSE 99; RESP 18; O2SAT 94
[2019-12-19] MEDS: sodium chloride 0.9% 1,000 ML 30 ML IV (07:53)
--- NOTE | 2019-12-19 08:44 | ANES.PREANE2 ---
Pre-Anesthetic Assessment Pre-Anesthetic Assessment: Height/Weight: Height 1.83 m Weight 99.79 kg Pulse Resp BP Pulse Ox 99 18 125/69 94 12/19/19 07:42 12/19/19 07:42 12/19/19 07:42 12/19/19 07:42 Preop Diagnosis: lymphoma Proposed Procedure: Operation Date: 12/19/19 09:20 Proposed Procedures p Portacath Placement 21533 C82.38(Not Applicable) - Owen Contreras MD Last intake: Intake Last Liquid Date 12/18/19 Last Liquid Time 18:30 Last Solid Date 12/18/19 Last Solid Time 18:30 Social: Social History: No alcohol and No tobacco Exam: Pre-Anes Outpt Exam: alert, oriented x 3, clear to auscultation bilaterally and regular rate & rhythm Airway: Submandibular: WNL Cervical ROM: WNL MP: 1 Dentition: Chipped History/ROS: No significant history except as noted Pulmonary: Pulmonary: None reported CV/HEM: CV/HEM: None reported : : None reported Hepatic: Hepatic: None reported GI: GI: None reported Metabolic: Metabolic: Thyroid Comments: Follicular Lymphoma Musc/skel: Musc/skel: None reported Neuropsych: Neuropsych: None reported Anesthetic Plan: ASA status: 3 Anesthesia: MAC Meds/Allergies Current Medications: Current Medications Generic Name Dose Route Start Last Admin Trade Name Freq PRN Reason Stop Dose Admin Sodium Chloride 1,000 mls @ 30 ml s/hr 12/19/19 07:45 12/19/19 07:53 Sodium Chloride 0.9% IV 12/20/19 07:44 30 mls/hr .Q24H SCOTTIE Administration PFSH Anesthesia PFSH: Medical History (Updated 12/12/19 @ 15:53 by Owen Contreras MD) Anemia Follicular lymphoma grade 3a Hypothyroid Surgical History S/P lymph node biopsy (11/09/19) Family History Other CAD (coronary artery disease) Cancer Social History Smoking and tobacco status: never smoked Alcohol intake: never Lives independently: Yes Household members: spouse Marital status: Current occupational status: employed History of recent travel: No Data Anesthesia Cardiac Studies: No Data to Display
--- NOTE | 2019-12-19 09:20 | W.PM.OPSUD ---
Surgery/Procedure H&P Update DATE OF PROCEDURE: December 19, 2019 DATE H&P PERFORMED: 12/12/19 H&P UPDATE INFORMATION: I have reviewed H&P completed within last 30 days, I have examined patient prior to procedure and No changes to prior documentation PREOP DIAGNOSIS: lymphoma PLANNED PROCEDURE: Operation Date: 12/19/19 09:20 Proposed Procedures p Portacath Placement 54195 C82.38(Not Applicable) - Owen Contreras MD
--- NOTE | 2019-12-19 09:26 | SC_ITS ---
WS: [id number] INTRAOPERATIVE TECHNIQUE: 2 Spot fluoroscopic images for intraoperative purposes. FLUOROSCOPY TIME: 47.3 seconds CLINICAL INFORMATION: PORTACATH PLACEMENT COMPARISON: None. FINDINGS: Left central venous catheter with tip in the mid SVC. No visualized pneumothorax. SC/C-arm FL for CVA [id number] IMPRESSION: Images obtained for intraoperative purposes.
[2019-12-19] MEDS: lidocaine 1% INJ 20 mL SUBCUT (09:35)
[2019-12-19] MEDS: heparin, porcine 1,000 unit/mL INJ 10 mL 10000 UNIT INJECTION (09:52)
--- NOTE | 2019-12-19 10:06 | PM.OP ---
Operative Report Date of procedure: December 19, 2019 Pre-op Diagnosis: lymphoma Post-op diagnosis: same Procedure Done: Placement of PowerPort in the left subclavian vein Fluoroscopic guidance and interpretation for placement of catheter Pathology: none sent Surgeon: Owen Contreras Anesthesia: MAC Condition: stable Disposition: same day Procedure: The patient was taken to the Operating Room and the chest and neck bilaterally were prepped and draped in a sterile manner after the antibiotic had been administered and shoulder rolls had been placed. A total of 10 mL of 1% lidocaine with 0.5% Marcaine was infiltrated under the clavicle on the left side at the site of the planned entry into the subclavian vein. An introducer needle was then used to access the subclavian vein under the clavicle and after withdrawing blood syringe was removed and a guidewire passed under fluoroscopy into the superior vena cava. The site of the planned port was then marked on the chest and a 15 blade was used to make a 3 cm skin incision this was extended into the subcutaneous tissue using electrocautery and a subcutaneous pocket over the pectoralis fascia was created 2-0 Vicryl suture was used to suture the port to the pectoral fascia in the pocket on 3 sides. The catheter, after having been flushed with hep saline, was attached to the tunneler and a tunnel created between the port site and the subclavian vein entry site. Under fluoroscopy the dilator sheath was passed over the guidewire into the proximal superior vena cava. The inner dilator was removed and the sheath left behind and~ the catheter was introduced through the peel-away sheath with the tip in the superior vena cava. The peel-away sheath was removed. The proximal end of the catheter was cut to the right size and was attached to the port. Using a Daniel needle the port was accessed, it withdrew blood easily and flushed easily. A final 5cc of heparin was used to flush the PowerPort. The subcutaneous tissue was approximated using interrupted 3-0 Vicryl sutures and the skin at the introducer site and the port site was closed using subcuticular running 4-0 Monocryl sutures. Surgical glue was applied and the patient was stable throughout the procedure. Fluoroscopic guidance and interpretation was performed for introduction of the guidewire in the left subclavian vein, passage of dilator and placement of catheter tip in the distal superior vena cava.
[2019-12-19 10:08] VITALS: BP 98/57; PULSE 89; RESP 18; TEMP 36.8; O2SAT 95
[2019-12-19 10:29] VITALS: BP 125/69; PULSE 98; RESP 18; O2SAT 95
--- NOTE | 2019-12-19 14:05 | ANE.PACU2 ---
Inpatient post-anesthesia follow up: Airway intact: Yes Vital signs: Temperature 98.2 F Pulse Rate 98 Respiratory Rate 18 Blood Pressure 125/69 Pulse Oximetry 95 Oxygen Delivery Me thod Room Air Oxygen Flow Rate Fraction of Inspir ed Oxygen Hydration adequate: Yes Nausea and vomiting: No Pain level: 2 Mental status: Baseline
== END 2019-12-19 10:45 | disposition home or self-care (01) ==
PROVIDERS: PCP Nurse Practitioner Family; Visit Provider Surgery
PROC: (CPT 36561; principal; 2019-12-19 09:20)
DX: C82.38 Follicular lymphoma grade IIIa, lymph nodes of multiple sites (principal); E03.9 Hypothyroidism, unspecified
CPT/HCPCS: 36561; 12345; 76000; 77001; C1788; J0690; J1644; J2704; J3010; J3490; J7030

== ENCOUNTER 2019-12-27 07:53 | Outpatient (CLI) | payer SELFPAY ==
[2019-12-27 08:56] LABS: Basophils % 0.3 %; Eosinophils # 0.2 10^3/uL (0.0-0.8); Eosinophils % 6.5 %; Hematocrit 22.2 % (42.0-52.0); Lymphocytes # 1.6 10^3/uL (0.8-4.8); Lymphocytes % 49.4 %; Mean Corpuscular HGB Conc 29.3 g/dL (30.0-36.0); Mean Corpuscular Volume 92.1 fL (80-94); Mean Platelet Volume 9.2 fL (7.4-10.4); Monocytes # 0.5 10^3/uL (0.2-0.9); Monocytes % 15.8 %; Neutrophils % 26.1 %; Nucleated Red Blood Cells % 0 %; Platelet Count 160 10^3/cmm (130-400); Red Blood Count 2.41 10^6/uL (4.1-5.3); Red Cell Distribution Width 16.7 % (12.1-15.1); White Blood Count 3.2 10^3/uL (4.0-10.0)
[2019-12-27 09:17] LABS: Alanine Aminotransferase < 5 U/L (0-41); Albumin Level 2.8 g/dL (3.5-5.2); Alkaline Phosphatase 114 IU/L (40-130); Anion Gap 15.1 (5-19); Aspartate Amino Transferase 21 U/L (0-40); Blood Urea Nitrogen 22 mg/dL (6-20); Calcium 8.2 mg/dL (8.5-10.5); Carbon Dioxide 24 mmol/L (22-29); Chloride 99 mmol/L (98-107); Globulin 3.1 g/dL (1.3-4.6); Glomerular Filtration Rate 45.8 mL/min (90-130); Glucose 110 mg/dL (65-115); Osmolality Calculated 282 mOsm/kg (285-295); Potassium 4.1 mmol/L (3.5-5.1); Sodium 134 mmol/L (136-145); Total Bilirubin 0.4 mg/dL (0.15-1.2); Total Protein 5.9 g/dL (6.6-8.7)
[2019-12-27 09:55] LABS: Hemoglobin 6.5 g/dL (11.7-16.6); Neutrophils # 0.84 10^3/uL (1.8-7.7); Slide Review Slide Review Perform
[2019-12-27] MEDS: acetaminophen 325 mg Tablet 650 MG PO (11:20)
[2019-12-27] MEDS: diphenhydrAMINE 25 mg Capsule PO (11:20)
[2019-12-27] MEDS: sodium chloride 0.9% 250 ML 999 ML IV (11:45)
[2019-12-27] MEDS: FUROsemide 10 mg/mL SDV 2mL 20 MG IV (13:45)
--- NOTE | 2019-12-27 17:21 | ONC FU_ITS ---
Dr. Mclean follow up note Patient: Zhen Reardon Unit #: [id number]: [id number] Dicatated By: Marci Mclean M.D.Date of Visit:Dec 27, 2019 Onc Med Follow-up/Prog Note History of Present Illness: Mr. Zhen Mayfield, is a 49-year-old gentleman with newly diagnosed grade 3A follicular lymphoma per right posterior triangle cervical lymph node biopsy done on November 09, 2019. As per patient, he was in his usual health until about 3 months ago when he started having dry cough and subsequently started feeling weak and tired followed by night sweats and weight loss and generalized body aches and pain requiring Percocet went to see his primary care physician CT scan of chest abdomen pelvis was ordered which showed bulky lymphadenopathy in left axilla, upper anterior and middle mediastinum and also right axillary lymph node involvement. His subcarinal lymph node measures up to 5.1 x 2.6 cm and left axillary lymph node measures up to 4 x 3.7 cm and right axillary lymph node 4.1 x 1.5 cm and numerous enlarged internal mammary chain lymph nodes, lung field no abnormality seen no bony destruction seen, CT scan of abdomen and pelvis showed extensive intra-abdominal lymphadenopathy with massive splenomegaly size about 22 cm, and extensive retroperitoneal, mesenteric, portal adenopathy largest node is in the lindsay hepatis measuring 8.1 x 5.3 x 6.4 cm and numerous bulky masses are observed above this level in periaortic paracaval retroperitoneum and throughout both iliac chains and obturator chains in the lower pelvis no bony lytic lesions seen. No free air seen. Patient was referred to surgery for cervical lymph node biopsy which was done on November 09, 2019 and the final pathology report came back follicular lymphoma, grade 3A, (more than 15 centroblast per high-power field)Immunohistochemistry positive for CD20, PAX 5, CD10, BCL-2, BCL 6 with partial and weakly positive. And Ki-67 was 35 to 40%, MUM1 positive and focus which is partially lacking BCL-2, as per pathology, signifies a higher-grade and consistent with grade 3A. Patient also has significant B symptoms drenching sweating, weight loss more than 10 pounds in the last couple of months despite of good appetite but no fever probably masked by Tylenol in Percocet. Patient also complaining of generalized weakness and fatigue, as per patient he was diagnosed with anemia and now taking oral iron supplement, helping him somewhat. Denies any melena or hematochezia, denies any jaundice, denies any hemoptysis or hematemesis, denies any hematuria but generalized weakness and fatigue and dyspnea on exertion. Patient denies smoking or alcohol use. No family history of lymphoma or blood disorder. Patient received 4 units of packed RBC on December 06, 2019, as per patient his hemoglobin improved to 7.3 g from 5.3 g after 3 units and then 1 more unit was given with that his hemoglobin improved to 8.3 g. Echocardiogram done on December 06, 2019 showed ejection fraction 65% CT PET scan was done on December 24, 2019, result is pending Came for follow-up, complaining of generalized weakness and fatigue, dyspnea on exertion. No chest pain. No melena or hematochezia, no jaundice, no hemoptysis or hematemesis, no hematuria, but night sweats and weight loss but no fever. Medications: Ferrous Sulfate 1 Tablet (of 325 (65 fe) mg) Oral b.i.d., HYDROcodone-Acetaminophen 1 Tablet (of 5-325 mg) Oral b.i.d., Levothyroxine Sodium 1 Tablet (of 25 mcg) Oral daily Allergies: No Known Allergies. Review of Systems: Constitutional - Appetite is good but weight is decreasing. No fever. Positive for night sweats. No hot flashes. Energy level is poor, ENMT - No sinus congestion/drainage. No mouth sores. No sore throat or difficulty swallowing, Hematologic/Lymphatic - Positive for easy bruising and bleeding, Respiratory - Positive for shortness of breath and cough. No pleuritic pain or hemoptysis, Cardiovascular - No angina pain. No palpitations, Gastrointestinal - No nausea or vomiting. No heartburn or acid reflux. No diarrhea. Positive for constipation. No blood in the stool or black stools, Genitourinary (M) - No dysuria or hematuria. No urinary frequency. No urgency or incontinence, Musculoskeletal - No joint or bone pain, Neurologic - No headache or dizziness. No numbness or tingling. No other focal neurologic symptoms, Psychiatric - No anxiety or depression. No insomnia. Vital Signs: Performed on Dec 27, 2019 09:56 Height - 62.00 in Weight - 216.2 lbs (LOW) BSA - 1.98 sq.m BMI - 39.54 (HIGH) Temperature - 98.8 F Pulse - 87 /min Respiration - 24 /min BP - 113/64 mm(hg) O2 Sat - 95 % (LOW) Pain - 2 Performance Status: 2 - Ambulatory/capable of all self-care, unable to perform any work activities. Up and about more than 50% of waking hours. (ECOG) Physical Examination: ENMT - No mouth sores, no thrush, no jaundice, extensive cervical lymphadenopathy and bilateral axillary lymph node, Respiratory - Lungs are clear to auscultation, Cardiovascular - Regular rate and rhythm of heart, Abdomen - Soft, bowel sounds present, Extremities - No visible edema. Lab/Imaging: Test performed on Dec 06, 2019 14:35 LDH (Total) 311 U/L Sodium 133 mmol/L Potassium 4.4 mmol/L Chloride 98 mmol/L CO2 26 mmol/L Anion Gap 13.4 BUN 17 mg/dL Creatinine 1.7 mg/dL Cr Clearance (Est) 73.8800 mL/min eGFR 42.7 mL/min Glucose 108 mg/dL Osmolality - Calculated 278 mOsm/kg Calcium 8.8 mg/dL Protein, Total 6.5 g/dL Albumin 3.3 g/dL Globulin 3.2 g/dL Bilirubin, Total 0.4 mg/dL ALT (SGPT) < 5 U/L AST (SGOT) 20 U/L Alkaline Phosphatase 118 IU/L WBC 5.7 10 3/uL RBC 1.98 10 6/uL HGB 5.3 g/dL HCT 19.1 % MCV 96.5 fL MCH 26.8 pg MCHC 27.7 g/dL RDW 21.2 % Platelet Count 157 10 3/cmm MPV 9.7 fL Neutrophils 2.93 10 3/uL Lymphocytes 1.7 10 3/uL Monocytes 0.5 10 3/uL Eosinophils 0.2 10 3/uL Basophils 0.0 10 3/uL Neutrophil % 51.7 % Lymphocyte % 30.0 % Monocyte % 9.2 % Eosinophil % 4.1 % Basophils % 0.4 % NRBC % 0.5 % CBC Slide Review Slide Review Perform SLIDE REVIEW AGREES WITH AUTOMATED RESULTS ST IgG 1211 mg/dL IgA 104 mg/dL IgM 52 mg/dL Impression: Follicular lymphoma grade 3A per right posterior triangle cervical lymph node biopsy done on November 09, 2019, 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 Ki-67 proliferation index 30 to 40% and MUM1, positive and focus which is partially lacking BCL-2, as per pathology signifies a high-grade and consistency with grade 3A CT scan of chest abdomen pelvis done on November 01, 2019 showed extensive, bulky bilateral axillary lymphadenopathy left axillary lymph node 4 x 3.7 cm right axillary lymph node 4.1 x 1.5 cm and middle mediastinum and anterior mediastinal lymphadenopathy, subcarinal lymph node 5.1 x 2.6 cm and numerous enlarged internal mammary chain lymph nodes and extensive retroperitoneal para-aortic, paracaval lymphadenopathy and largest mass 8.1 x 5.3 x 6.4 cm in the lindsay hepatis posterior to the pancreatic head and anterior to inferior vena cava and numerous bulky masses are observed above this level in the lindsay, throughout the periaortic and paracaval, retroperitoneal and both iliac chain and obturator chains on.pelvis. But no bone abnormality seen and massive splenomegaly size were 22 cm., Clinically, high risk, bulky disease, Anemia, on oral iron per PMD Plan: Discussed with patient regarding his labs white blood count 3.2 hemoglobin 6.5 g hematocrit 22.2 platelets 160,000 CMP within normal limit except sodium 134 creatinine 1.6 Clinically, patient doing reasonably well now with progressive generalized weakness and fatigue due to progressive severe anemia with no evidence of hemolysis or gross bleeding, which could be due to lymphoma or bone marrow involvement, CT PET scan was done last Thursday report is pending, because of persistent and progressive anemia, decided to proceed with systemic chemotherapy with R-CHOP, his echocardiogram showed ejection fraction 65%, all the side effects possible benefits associated with R-CHOP including but not limited to, bone marrow suppression, nausea vomiting, hair loss, cardiac toxicity especially with Adriamycin, peripheral neuropathy, hyperglycemia with steroids, allergic reaction especially with Rituxan were mentioned, and tumor lysis, further teaching will be done by chemotherapy nurse Because of symptomatic anemia, will type and cross and consider 2 units of packed RBC and repeat CBC in the morning if there is a recovery in his white blood count and hemoglobin, will consider first cycle of chemotherapy with CHOP and Rituxan on day 2 to minimize risk of allergic reaction due to tumor load. Also start him on allopurinol 100 mg twice a day to prevent tumor lysis patient was advised to maintain good hydration. And will also start him on prednisone 100 mg p.o. daily for 5 days. Patient return to clinic in the morning with CBC and if reasonable for first cycle of chemotherapy with CHOP with Neulasta to prevent chemotherapy-induced leukopenia/neutropenia and then on day 2 Rituxan. In the meantime we will review CT PET scan report once available. Signed By: Marci Mclean M.D. <<Signature on File>>
== END 2019-12-27 07:54 | disposition home or self-care (01) ==
LOC: ONCMED 07:54
PROVIDERS: PCP Nurse Practitioner Family; Visit Provider Internal Medicine Hematology & Oncology
DX: C82.28 Follicular lymphoma grade III, unspecified, lymph nodes of multiple sites (principal); D64.9 Anemia, unspecified
CPT/HCPCS: 36591; 80053; 85025; 86850; 86900; 86920; 99214; J1940; J7050; P9040

== ENCOUNTER 2019-12-29 13:08 | Outpatient (CLI) | payer SELFPAY ==
[2019-12-29 13:57] LABS: Basophils % 0.9 %; Eosinophils # 0.1 10^3/uL (0.0-0.8); Eosinophils % 3.2 %; Hematocrit 25.5 % (42.0-52.0); Hemoglobin 7.6 g/dL (11.7-16.6); Lymphocytes # 1.2 10^3/uL (0.8-4.8); Mean Corpuscular HGB Conc 29.8 g/dL (30.0-36.0); Mean Corpuscular Hemoglobin 27.2 pg (28.0-34.0); Mean Corpuscular Volume 91.4 fL (80-94); Mean Platelet Volume 9.1 fL (7.4-10.4); Monocytes # 0.4 10^3/uL (0.2-0.9); Neutrophils % 23.5 %; Nucleated Red Blood Cells % 0 %; Platelet Count 136 10^3/cmm (130-400); Red Blood Count 2.79 10^6/uL (4.1-5.3); Red Cell Distribution Width 17.1 % (12.1-15.1); White Blood Count 2.2 10^3/uL (4.0-10.0)
[2019-12-29] MEDS: sodium chloride 0.9% 1,000 ML 100 ML IV (14:10)
[2019-12-29] MEDS: acetaminophen 325 mg Tablet 650 MG PO (14:40)
[2019-12-29] MEDS: predniSONE 20 mg Tablet 100 MG PO (14:47)
[2019-12-29 15:56] LABS: Neutrophils # 0.52 10^3/uL (1.8-7.7)
[2019-12-29 15:57] LABS: Slide Review Slide Review Perform
== END 2019-12-29 13:09 | disposition home or self-care (01) ==
LOC: ONCMED 13:08
PROVIDERS: PCP Nurse Practitioner Family; Visit Provider Internal Medicine Hematology & Oncology
DX: Z51.11 Encounter for antineoplastic chemotherapy (principal); C82.28 Follicular lymphoma grade III, unspecified, lymph nodes of multiple sites
CPT/HCPCS: 85025; 96361; 96367; 96411; 96413; 96417; J1100; J1200; J1453; J2469; J7030; J7040; J7512; J9000; J9070; J9370

== ENCOUNTER 2020-01-03 05:30 | Outpatient (RCR) | payer SELFPAY ==
[2019-12-30] MEDS: diphenhydrAMINE 25 mg Capsule PO (09:30)
[2019-12-30] MEDS: acetaminophen 325 mg Tablet 650 MG PO (09:30)
[2019-12-30] MEDS: sodium chloride 0.9% 250 ML 999 ML IV (09:30)
[2019-12-30] MEDS: FUROsemide 10 mg/mL SDV 2mL 20 MG IV (11:20)
[2020-01-03 09:47] LABS: Basophils % 0.1 %; Eosinophils # 0.1 10^3/uL (0.0-0.8); Eosinophils % 1.3 %; Hematocrit 30.5 % (42.0-52.0); Lymphocytes # 0.7 10^3/uL (0.8-4.8); Lymphocytes % 8.4 %; Mean Corpuscular HGB Conc 29.5 g/dL (30.0-36.0); Mean Corpuscular Hemoglobin 27.8 pg (28.0-34.0); Mean Corpuscular Volume 94.1 fL (80-94); Mean Platelet Volume 9.4 fL (7.4-10.4); Monocytes # 0.1 10^3/uL (0.2-0.9); Monocytes % 1.3 %; Neutrophils # 6.14 10^3/uL (1.8-7.7); Nucleated Red Blood Cells % 0 %; Platelet Count 146 10^3/cmm (130-400); Red Blood Count 3.24 10^6/uL (4.1-5.3); Red Cell Distribution Width 15.8 % (12.1-15.1)
[2020-01-03 10:09] LABS: Alanine Aminotransferase 6 U/L (0-41); Albumin Level 2.7 g/dL (3.5-5.2); Alkaline Phosphatase 105 IU/L (40-130); Anion Gap 15.4 (5-19); Aspartate Amino Transferase 20 U/L (0-40); Blood Urea Nitrogen 33 mg/dL (6-20); Calcium 8.2 mg/dL (8.5-10.5); Carbon Dioxide 23 mmol/L (22-29); Chloride 101 mmol/L (98-107); Glomerular Filtration Rate 63.8 mL/min (90-130); Glucose 124 mg/dL (65-115); Osmolality Calculated 289 mOsm/kg (285-295); Potassium 4.4 mmol/L (3.5-5.1); Sodium 135 mmol/L (136-145); Total Bilirubin 0.3 mg/dL (0.15-1.2); Total Protein 5.7 g/dL (6.6-8.7)
[2020-01-03 10:29] LABS: Slide Review Slide Review Perform
--- NOTE | 2020-01-07 17:38 | ONC FU_ITS ---
[facility] Patient Note Patient: Zhen Reardon Unit #: [id number]: [id number] Dictated By: Chris GodfreyDate of Visit: Jan 03, 2020 Onc MED Follow-Up/Prog Note Chief Complaint: Follicular lymphoma History of Present Illness: Mr. Reardon is a 49-year-old gentleman with newly diagnosed grade 3A follicular lymphoma. He had a right posterior triangle cervical lymph node biopsy done on November 09, 2019. As per patient, he was in his usual health until about 3 months ago when he started having dry cough and subsequently started feeling weak and tired. That was followed by night sweats, weight loss and generalized body aches and pain requiring Percocet. Mr Reardon went to see his primary care physician and a CT scan of chest/abdomen/pelvis was ordered. The CTs were obtained on November 01, 2019 and reported bulky lymphadenopathy in left axilla, upper anterior and middle mediastinum and also right axillary lymph node involvement. His subcarinal lymph node measures up to 5.1 x 2.6 cm and left axillary lymph node measures up to 4 x 3.7 cm and right axillary lymph node 4.1 x 1.5 cm and numerous enlarged internal mammary chain lymph nodes, lung field no abnormality seen no bony destruction seen. CT scan of abdomen and pelvis showed extensive intra-abdominal lymphadenopathy with massive splenomegaly size about 22 cm, and extensive retroperitoneal, mesenteric, portal adenopathy largest node is in the lindsay hepatis measuring 8.1 x 5.3 x 6.4 cm and numerous bulky masses are observed above this level in periaortic paracaval retroperitoneum and throughout both iliac chains and obturator chains in the lower pelvis no bony lytic lesions seen. No free air seen. Patient was referred to surgery for cervical lymph node biopsy which was done on November 09, 2019 and the final pathology report came back follicular lymphoma, grade 3A, (more than 15 centroblast per high-power field)Immunohistochemistry positive for CD20, PAX 5, CD10, BCL-2, BCL 6 with partial and weakly positive. And Ki-67 was 35 to 40%, MUM1 positive and focus which is partially lacking BCL-2, as per pathology, signifies a higher-grade and consistent with grade 3A. Mr Reardon also had significant B symptoms drenching sweating, weight loss more than 10 pounds in the last couple of months despite of good appetite but no fever probably masked by Tylenol in Percocet. Patient denies smoking or alcohol use. No family history of lymphoma or blood disorder. Mr Reardon received 4 units of packed RBC on December 06, 2019, as per patient his hemoglobin improved to 7.3 g from 5.3 g after 3 units and then 1 more unit was given with that his hemoglobin improved to 8.3 g. Echocardiogram done on December 06, 2019 showed ejection fraction 65% CT PET scan was done on December 24, 2019. The PET CT reported widespread FDG positive lymphoma from the head and neck to the pelvis; splenic with lymphomatoud infiltration; bilateral pleural effusions with free abdominal fluid present; widespread marrow uptake; this may be reactive, although malignancy infiltration cannot be excluded; malignant left upper lobe pleural implant. Mr. Reardon was referred to Dr. Mclean for treatment. He did have port placement of left subclavian vein PowerPort Dr. Contreras on 12/19/2019. He has been offered treatment with R-CHOP but will start Rituxan the second cycle. Mr. Reardon is here today for follow-up. He started his first cycle of CHOP on 12/29/2019. He is here today for routine follow-up post treatment. He did receive Neulasta support. He states overall he is feeling much better although he is really tired. He states his night sweats are gone he states that 4 days into the treatment he noticed that he was feeling better and on the fifth days he has had no further night sweats. He denies any appetite changes. He denies mouth sores, sore throat or difficulty swallowing. He denies any new shortness of breath orthopnea. He has no lower extremity edema. He denies chest pain or palpitations. He states his bowels and bladder are normal for him. His pain is improving but still present although controlled with the Percocet. His ECOG is 1. Past Medical History: Anemia Hypothyroidism Past Surgical History: [facility] Allergies: No Known Allergies. Medications: Allopurinol 1 Tablet (of 100 mg) Oral b.i.d. Ferrous Sulfate 1 Tablet (of 325 (65 fe) mg) Oral b.i.d. HYDROcodone-Acetaminophen 1 Tablet (of 5-325 mg) Oral b.i.d. Levothyroxine Sodium 1 Tablet (of 25 mcg) Oral daily Family History: Mr. Reardon's mother is : ovarian cancer. Mr. Reardon's father is . Mr. Reardon's maternal grandmother is : myocardial infarction. His maternal grandfather is . His paternal grandmother is . His paternal grandfather is . Social History: Mr. Reardon is . Mr. Reardon has never smoked. He has no history of drinking. Review Of Symptoms: Constitutional Denies fevers, chills, night sweats, excessive fatigue or weight loss. He states his night sweats are gone. Tired but able to get things done. Allergic/Immunologic No reactions. Eyes Denies significant visual changes. No diplopia. No amaurosis. ENMT Denies changes in hearing, sore throat, mouth sores, difficulty or changes in swallowing ability, and/or sinus drainage. Endocrine No diabetes, thyroid disease or hormone replacement. Denies hot flashes or night sweats. Hematologic/Lymphatic Denies easy bruising or bleeding. The patient denies any tender or palpable lymph nodes. Respiratory Denies dyspnea on exertion, chest pain, cough or hemoptysis. Denies orthopnea. Cardiovascular Denies anginal chest pain, palpitations or orthopnea. Gastrointestinal Denies nausea, vomiting, diarrhea, GI bleeding, or constipation. Denies change in bowel habits and/or stool color, no heartburn or early satiety. Genitourinary (M) Denies hematuria, dysuria, increased frequency, urgency, hesitancy or incontinence. Musculoskeletal Denies joint pain, swelling or redness. No decreased range of motion. Integumentary Denies chronic rashes, inflammation, ulcerations or skin changes. Neurologic Denies headache, blurred vision, and no areas of focal weakness or numbness. Normal gait. No sensory problems. Psychiatric Denies insomnia, depression, renny or mood swings. Vital Signs: Performed on Jan 03, 2020 11:10 Height - 62.00 in Weight - 206.2 lbs (LOW) BSA - 1.94 sq.m BMI - 37.71 (HIGH) Temperature - 99.0 F (HIGH) Pulse - 79 /min Respiration - 22 /min BP - 109/61 mm(hg) O2 Sat - 96 % Pain - 1,1 - No physically strenuous activity, but ambulatory and able to carry out light or sedentary work (e.g. office work, light house work). (ECOG) Physical Examination: Chest Left subclavian PowerPort site is healing well. Constitutional Alert, oriented, no acute distress. Skin pink, warm and dry. Head Normocephalic; atraumatic. Eyes Conjunctivae and sclerae are clear and without icterus. Pupils are reactive and equal. Neck Supple without masses or thyromegaly. No jugular venous distension. Respiratory Lungs are clear to auscultation without rhonchi or wheezing. Cardiovascular Regular rate and rhythm of heart without murmurs,clicks, gallops or rubs. Abdomen Non-tender, non-distended, no masses or ascites. Good bowel sounds noted in all quads. No guarding or rebound tenderness. No pulsatile masses. Back/Spine Non-tender to palpation. Extremities No visible deformities, no cyanosis, clubbing or edema. Musculoskeletal No tenderness or swelling, normal range of motion without obvious weakness. Integumentary No rashes or lesions. Neurologic No sensory or motor deficits, normal cerebellar function, normal gait. Psychiatric Alert and oriented times three. Coherent speech. Verbalizes understanding of our discussions today. Laboratory:Test performed on Jan 03, 2020 09:35 Sodium 135 mmol/L Potassium 4.4 mmol/L Chloride 101 mmol/L CO2 23 mmol/L Anion Gap 15.4 BUN 33 mg/dL Creatinine 1.2 mg/dL Cr Clearance (Est) 101.0200 mL/min eGFR 63.8 mL/min Glucose 124 mg/dL Osmolality - Calculated 289 mOsm/kg Calcium 8.2 mg/dL Protein, Total 5.7 g/dL Albumin 2.7 g/dL Globulin 3.0 g/dL Bilirubin, Total 0.3 mg/dL ALT (SGPT) 6 U/L AST (SGOT) 20 U/L Alkaline Phosphatase 105 IU/L WBC 8.0 10 3/uL RBC 3.24 10 6/uL HGB 9.0 g/dL HCT 30.5 % MCV 94.1 fL MCH 27.8 pg MCHC 29.5 g/dL RDW 15.8 % Platelet Count 146 10 3/cmm MPV 9.4 fL Neutrophils 6.14 10 3/uL Lymphocytes 0.7 10 3/uL Monocytes 0.1 10 3/uL Eosinophils 0.1 10 3/uL Basophils 0.0 10 3/uL Neutrophil % 77.0 % Lymphocyte % 8.4 % Monocyte % 1.3 % Eosinophil % 1.3 % Basophils % 0.1 % NRBC % 0 % CBC Slide Review Slide Review Perform SLIDE REVIEW AGREES WITH AUTOMATED RESULTS ST Test performed on Dec 06, 2019 14:35 LDH (Total) 311 U/L IgG 1211 mg/dL IgA 104 mg/dL IgM 52 mg/dL Impression: Follicular lymphoma grade 3A per right posterior triangle cervical lymph node biopsy done on November 09, 2019, 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 Ki-67 proliferation index 30 to 40% and MUM1, positive and focus which is partially lacking BCL-2, as per pathology signifies a high-grade and consistency with grade 3A CT scan of chest abdomen pelvis done on November 01, 2019 showed extensive, bulky bilateral axillary lymphadenopathy left axillary lymph node 4 x 3.7 cm right axillary lymph node 4.1 x 1.5 cm and middle mediastinum and anterior mediastinal lymphadenopathy, subcarinal lymph node 5.1 x 2.6 cm and numerous enlarged internal mammary chain lymph nodes and extensive retroperitoneal para-aortic, paracaval lymphadenopathy and largest mass 8.1 x 5.3 x 6.4 cm in the lindsay hepatis posterior to the pancreatic head and anterior to inferior vena cava and numerous bulky masses are observed above this level in the lindsay, throughout the periaortic and paracaval, retroperitoneal and both iliac chain and obturator chains on.pelvis. But no bone abnormality seen and massive splenomegaly size were 22 cm., Clinically, high risk, bulky disease, Anemia, on oral iron per PMD. Because of persistent and progressive anemia, decided to proceed with systemic chemotherapy with R-CHOP, his echocardiogram showed ejection fraction 65%,^ Mr Chandler began cycle 1 CHOP (Rituxan to start with cycle 2) and Neulasta on 12/29/2019.] Plan: 1. proceed with current plan of care. He is day 8 of cycle 1 CHOP and Neulasta. He is tolerating it well. 2. His blood counts are holding well thus far. He did receive Neulasta support and his hemoglobin is now 8.0. 3. Labs from 01/03/2020 were reviewed in detail and discussed with Mr. Reardon and a copy was given to him. WBC 8.0, hemoglobin is 9 platelets 146,000 ANC is 6140 creatinine is 1.2 LFTs are normal. 4. We will recheck his CBC in 1 week and followup with CBC, CMP and LDH for cycle 2 [id number] to be added this cycle. 5. Mr Reardon was encouraged to call us in the interim if questions or problems arise. Signed By: Chris Godfrey-, CNP Moon Mclean MD <<Signature on File>>
== END 2020-01-09 23:59 | disposition home or self-care (01) ==
LOC: ONCMED 05:30
PROVIDERS: PCP Nurse Practitioner Family; Visit Provider Nurse Practitioner
DX: C82.38 Follicular lymphoma grade IIIa, lymph nodes of multiple sites (principal); J90 Pleural effusion, not elsewhere classified; D64.9 Anemia, unspecified; Z76.89 Persons encountering health services in other specified circumstances; Z79.891 Long term (current) use of opiate analgesic
CPT/HCPCS: 36591; 80053; 85025; 86850; 86900; 86920; 96372; 99214; J1940; J2505; J7050; P9040

== ENCOUNTER 2020-01-11 14:33 | Inpatient (IN) | payer SELFPAY ==
[2020-01-11] VITALS (11 sets, daily range): BP systolic 99–107; BP diastolic 58–64; PULSE 84–103; RESP 16–20; TEMP 36.1–37.5; O2SAT 94–98; BMI 28.5
[2020-01-11 13:54] LABS: Basophils % 1.8 %; Eosinophils % 1.8 %; Lymphocytes # 0.5 10^3/uL (0.8-4.8); Lymphocytes % 47.7 %; Mean Corpuscular HGB Conc 31.1 g/dL (30.0-36.0); Mean Corpuscular Hemoglobin 27.1 pg (28.0-34.0); Mean Corpuscular Volume 87.2 fL (80-94); Mean Platelet Volume 8.9 fL (7.4-10.4); Monocytes # 0.2 10^3/uL (0.2-0.9); Monocytes % 17.1 %; Neutrophils % 29.8 %; Nucleated Red Blood Cells % 0 %; Platelet Count 158 10^3/cmm (130-400); Red Blood Count 2.18 10^6/uL (4.1-5.3); Red Cell Distribution Width 15.9 % (12.1-15.1); White Blood Count 1.1 10^3/uL (4.0-10.0)
[2020-01-11 14:14] LABS: Alanine Aminotransferase 69 U/L (0-41); Albumin Level 2.5 g/dL (3.5-5.2); Alkaline Phosphatase 201 IU/L (40-130); Aspartate Amino Transferase 174 U/L (0-40); Blood Urea Nitrogen 26 mg/dL (6-20); Calcium 8.2 mg/dL (8.5-10.5); Carbon Dioxide 22 mmol/L (22-29); Chloride 97 mmol/L (98-107); Glucose 117 mg/dL (65-115); Osmolality Calculated 280 mOsm/kg (285-295); Sodium 132 mmol/L (136-145); Total Bilirubin 0.3 mg/dL (0.15-1.2); Total Protein 5.5 g/dL (6.6-8.7)
[2020-01-11 14:53] LABS: Hemoglobin 5.9 g/dL (11.7-16.6); Neutrophils # 0.33 10^3/uL (1.8-7.7); Slide Review Slide Review Perform
--- NOTE | 2020-01-11 15:03 | W.ED.RECABL ---
HPI - Recheck/Abnormal Lab/Rx General: Chief Complaint: Recheck/Abnormal Lab/Rx Stated Complaint: SENT BY DR BERNARD/BLOOD TRANSFUSION Time Seen by Provider: 01/11/20 14:56 Source: patient Mode of arrival: ambulatory Limitations: no limitations History of Present Illness: HPI narrative: 49-year-old male has a history of B-cell lymphoma. He has had chronic anemia. Patient states he has been having weakness and has blood drawn today had a hemoglobin of 5.9. He states that he was sent here for transfusion. He states that he is just been feeling quite rundown. He denies any blood in his stool. Denies any fevers. Denies any worsening improving factors. Review of Systems Const: Denies: fever(s), chills, body aches or change in appetite Eyes: Denies: blurry vision or eye discomfort ENMT: Denies: throat pain or dental pain Card: Denies: chest pain Resp: Denies: dyspnea GI: Denies: abdominal pain, nausea, vomiting or diarrhea : Denies: dysuria Musc: Denies: neck pain or back pain Skin/Breast: Denies: rash Neuro: Reports: weakness in extremities; Denies: headache(s) Psych: Denies: depression Ishan/Lymph: Denies: easy bruising All/Imm: Denies: urticaria PFSH ED PFSH: Medical History Anemia Follicular lymphoma grade 3a Hypothyroid Surgical History S/P lymph node biopsy (11/09/19) Family History Other CAD (coronary artery disease) Cancer Social History Smoking and tobacco status: never smoked Alcohol intake: never Lives independently: Yes Household members: spouse Marital status: Current occupational status: employed History of recent travel: No Physical Exam Const: COMMON NORMALS: no acute distress, patient oriented x3 and healthy appearing HENMT: COMMON NORMALS: normocephalic and atraumatic HEAD & SCALP: normocephalic and atraumatic Eye: COMMON NORMALS: Equal, round and reactive pupils present and EOMs intact bilaterally PUPIL: Yes Equal, round and reactive pupils present Neck/C-Spine: COMMON NORMALS: full ROM and supple Chest: COMMONS NORMALS: normal inspection of the chest and normal palpation of entire chest wall Resp: COMMON NORMALS: normal respiratory effort, No retractions, No use of accessory muscles and clear to auscultation bilaterally AUSCULTATION: clear to auscultation bilaterally Cardio: COMMON NORMALS: regular rate, regular rhythm and No murmurs present (Cardio) RATE: regular rate RHYTHM: regular rhythm GI: COMMON NORMALS: Normal to inspection, nondistended, normoactive bowel sounds present, Soft to palpation, non-tender and no masses PALPATION: Yes Soft to palpation Extremity: COMMON NORMALS: normal to inspection and full ROM Neuro: COMMON NORMALS: patient oriented x3, moves all extremities and no focal motor deficits Psych: COMMON NORMALS: mental status grossly normal, Normal thought process present and cooperative THOUGHT PROCESS: Normal thought process present Skin: COMMON NORMALS: no rashes or lesions noted and no wounds NARRATIVE SKIN EXAM: pale GENERAL SKIN EXAM: no rashes or lesions noted Course Vital Signs: Vital signs: Vital Signs Temperature 96.9 F L 01/11/20 14:39 Pulse Rate 102 H 01/11/20 14:39 Respiratory Rate 18 01/11/20 14:39 Blood Pressure 100/62 01/11/20 14:39 Pulse Oximetry 98 01/11/20 14:39 MDM - Recheck/Abnormal Lab/Rx MDM Narrative: Medical decision making narrative: Patient presents here with anemia that is acute on chronic. He has no signs of bleeding. Patient is hemodynamically stable here spoke to hospitalist and will admit for observation for transfusion. Patient's blood pressures been stable. Lab Data: Labs: Lab Results 01/11/20 01/11/20 01/11/20 Range/Units 13:38 13:38 13:38 WBC 1.1 L (4.0-10.0) 10^3/ uL RBC 2.18 L (4.1-5.3) 10^6/u L Hgb 5.9 L* (11.7-16.6) g/dL Hct 19.0 L* (42.0-52.0) % MCV 87.2 (80-94) fL MCH 27.1 L (28.0-34.0) pg MCHC 31.1 (30.0-36.0) g/dL RDW 15.9 H (12.1-15.1) % Plt Count 158 (130-400) 10^3/c mm MPV 8.9 (7.4-10.4) fL Neut % (Auto) 29.8 % Lymph % (Auto) 47.7 % [facility] % (Auto) 17.1 % Eos % (Auto) 1.8 % Baso % (Auto) 1.8 % Neut # (Auto) 0.33 L* (1.8-7.7) 10^3/u L Lymph # (Auto) 0.5 L (0.8-4.8) 10^3/u L [facility] # (Auto) 0.2 (0.2-0.9) 10^3/u L Eos # (Auto) 0.0 (0.0-0.8) 10^3/u L Baso # (Auto) 0.0 (0.0-0.1) 10^3/u L Nucleated RBC % (a uto) 0 % Nucleated RBCs # 0.0 /100WBC Sodium 132 L (136-145) mmol/L Potassium 4.0 (3.5-5.1) mmol/L Chloride 97 L (98-107) mmol/L Carbon Dioxide 22 (22-29) mmol/L Anion Gap 17.0 (5-19) BUN 26 H (6-20) mg/dL Creatinine 1.8 H (0.7-1.2) mg/dL GFR Calculation 40.0 L (90-130) mL/min Glucose 117 H (65-115) mg/dL Calculated Osmolal ity 280 L (285-295) mOsm/k g Calcium 8.2 L (8.5-10.5) mg/dL Total Bilirubin 0.3 (0.15-1.2) mg/dL AST 174 H (0-40) U/L ALT 69 H (0-41) U/L Alkaline Phosphata se 201 H (40-130) IU/L Total Protein 5.5 L (6.6-8.7) g/dL Albumin 2.5 L (3.5-5.2) g/dL Globulin 3.0 (1.3-4.6) g/dL Blood Type O Negative Rho(D) Type Negative Antibody Screen Negative Discharge Plan Discharge Admit Provider: Mai Olsen Coding Level of Care Code ED Equipment Service Engineer for Chg Fwd Exam Comprehensive
--- NOTE | 2020-01-11 16:45 | P.HP_ITS ---
Providers/Chief Complaint Admitting Physician: Mai Olsen MD Primary Care Provider: Sarai Watt Chief Complaint: SENT BY DR BERNARD/BLOOD TRANSFUSION History of Present Illness Zhen Reardon is a 49 year old male with PMHx noted below presents accompanied by his due to persistent and ongoing generalized weakness, decreased appetite and oral intake, increased fatigue to the point where he can barely ambulate or get out of bed. He was reportedly sent by Dr. Bernard to receive a blood transfusion due to noted acutely worsening anemia. He has had issues with chronic anemia with intermittent need for transfusions, last given on 12/28 during which time he received 2 units of PRBCs. He typically seems to respond well to transfusions, denies having had any adverse reactions to the infusions. He is on active chemotherapy with R-CHOP states his last treatment was approximately 2 weeks ago and he is still on his first cycle of the treatment. He was initially diagnosed in October of this year and follows up with Dr. Bernard as his primary oncologist. When he is feeling well he is fairly active and productive. Labs here indicate a white count of 1.1 with an ANC of 330, hemoglobin of 5.9, normal platelet count, sodium of 132, BUN of 26, creatinine of 1.8, blood glucose of 117, AST of 174, ALT of 69, ALP of 201, blood pressure is low normal, he has minimal tachycardia with heart rate ranging between 100- 110, he is on room air. He is currently receiving his first unit of blood during my assessment in the ER. is at bedside. During vitals check as blood transfusion is running he was noted to have a low-grade temperature of 100.3F. In light of neutropenia, will need empiric IV antibiotic treatment and to be placed on reverse isolation precautions. I discussed the care plan with both patient and , both are agreeable to the plan as detailed. He will require at least 2 units of PRBCs and continued monitoring of cell lines including hemoglobin and ANC, and need for admission. Review of Systems 2 Const: Reports: change in appetite (decreased appetite) and fatigue; Denies: fever(s) or chills Eyes: Denies: change in vision ENMT: Reports: dry mouth Card: Reports: dyspnea on exertion; Denies: chest pain, swelling of feet/ankles, lightheadedness, syncope or pre- syncope Resp: Reports: dyspnea and non-productive cough (chronic); Denies: productive cough or hemoptysis GI: Denies: abdominal pain, nausea, vomiting, hematemesis or hematochezia : Denies: hematuria Musc: Denies: back pain Skin/Breast: Denies: rash Neuro: Reports: weakness in extremities; Denies: numbness in extremities, frequent falls or dizziness Psych: Denies: anxiety Medications/Allergies Home Medications Medication Instructions Recorded Confirmed Last Taken Type ferrous sulfate 325 mg (65 mg 325 mg PO BID 11/04/19 01/11/20 01/11/20 History iron) tablet hydrocodone 5 mg-acetaminophen 325 1 tab PO Q6H PRN 7 Days #20 tab 11/23/19 01/11/20 01/11/20 Rx mg tablet levothyroxine 50 mcg PO DAILY #30 tab 12/07/19 01/11/20 01/11/20 Rx allopurinol 100 mg PO BID 01/11/20 01/11/20 01/11/20 History Allergies Allergy/AdvReac Type Severity Reaction Status Date / Time No Known Allergies Allergy Verified 01/11/20 14:44 PFSH Acute PFSH: Medical History (Updated 01/11/20 @ 17:21 by Mai Olsen MD) Anemia Chronic diastolic CHF (congestive heart failure) -Echo (11/2019): EF=65%, G1DD, mild TR Follicular lymphoma grade 3a -on chemotherapy with CHOP -diagnosed on 10/2019 Hypothyroid Stage 3b chronic kidney disease -baseline Cr-1.8 Surgical History (Updated 01/11/20 @ 16:57 by Mai Olsen MD) Port-A-Cath in place -placement of PowerPort on 12/19/19 S/P lymph node biopsy (11/09/19) Family History Other CAD (coronary artery disease) Cancer Social History Smoking and tobacco status: never smoked Alcohol intake: never Lives independently: Yes Household members: spouse Marital status: Current occupational status: employed History of recent travel: No Vitals/I&O/Wt Last Vital Signs Temp 98.6 F 01/11/20 16:08 Pulse 103 H 01/11/20 16:08 Resp 16 01/11/20 16:08 BP 107/60 01/11/20 16:08 Pulse Ox 98 01/11/20 14:39 01/11/20 01/11/20 01/11/20 06:59 14:59 22:59 Intake Total 0 / 0 Balance 0 / 0 Weight last 48 hrs Weight 95.254 kg Physical Exam Const: COMMON NORMALS: no acute distress, patient oriented x3 and alert GENERAL APPEARANCE: cooperative and comfortable ORIENTATION/CONSCIOUSNESS: Yes awake OTHER: -overall pallor -looks appropriate for age HENMT: COMMON NORMALS: normocephalic, atraumatic, hearing grossly normal bilaterally and moist oral mucous membranes HEAD & SCALP: normocephalic and atraumatic Eye: COMMON NORMALS: Equal, round and reactive pupils present, EOMs intact bilaterally and conjunctivae normal CONJUNCTIVA: Yes conjunctivae normal PUPIL: Yes Equal, round and reactive pupils present Neck/C-Spine: COMMON NORMALS: full ROM GENERAL: Yes normal visual inspection and Yes trachea midline Resp: COMMON NORMALS: normal respiratory effort, No retractions, No use of accessory muscles and clear to auscultation bilaterally EFFORT & INSPECTION: Yes able to speak in complete sentences, Yes symmetric chest movement and No tachypneic AUSCULTATION: clear to auscultation bilaterally Cardio: COMMON NORMALS: regular rhythm, S1 normal heart sound present, S2 normal heart sound present and No murmurs present (Cardio) RATE: tachycardic (minimal, 100-110) RHYTHM: regular rhythm HEART SOUNDS: S1 normal heart sound present and S2 normal heart sound present GI: COMMON NORMALS: Normal to inspection, nondistended, normoactive bowel sounds present, Soft to palpation and non-tender PALPATION: Yes Soft to palpation Extremity: COMMON NORMALS: normal to inspection, full ROM and no clubbing, cyanosis or edema; negative for no pedal edema Neuro: COMMON NORMALS: patient oriented x3, moves all extremities, no focal motor deficits and no sensory deficits noted SENSORIUM/ORIENTATION: Yes alert OTHER: -generally quite weak Psych: COMMON NORMALS: mental status grossly normal, Normal thought process present, cooperative, normal affect and speech normal SPEECH: Yes normal speech THOUGHT PROCESS: Normal thought process present Skin: COMMON NORMALS: no rashes or lesions noted, no jaundice, no petechiae and no mottling GENERAL SKIN EXAM: no rashes or lesions noted Data : 01/11/20 13:38 01/11/20 13:38 A&P Assessment and plan (1) Anemia: -acutely worsening symptomatic normocytic anemia -has required transfusions intermittently, last one was on 12/28, received 2 units of PRBCs -Hg down to 5.9 today, plan to start by transfusing 2 units of PRBCs; may require additional units -has not been on AC, antiplatelets, NSAIDs -close monitoring of H/H -monitor for bleeding -monitor vital signs closely -telemetry monitoring -resume iron supplementation Status: Acute Qualifiers: Anemia type: unspecified type Qualified Code(s): D64.9 - Anemia, un specified (2) Neutropenic fever: -spiked low grade temp of 100.3 F in ED; has not had a reaction to blood transfusion in the past -noted to be neutropenic, ANC-330, reverse isolation precautions -close monitoring of cell lines -cover with cefepime empirically -screen for infectious source including blood cx, UA Status: Acute (3) Follicular lymphoma grade 3a: -on systemic chemotherapy with R-CHOP, cycle 1; last chemo treatment was about 2 weeks ago -resume allopurinol, given to prevent risk of tumor lysis syndrome Status: Chronic Qualifiers: Lymphoma site: multiple regions Qualified Code(s): C82.38 - Follicular lymphoma grade IIIa, lymph nodes of multiple sites (4) Chronic diastolic CHF (congestive heart failure): -no acute exacerbation but monitor for this with increased volume from meds, PRBCs -Echo (11/2019): EF=65%, G1DD, mild TR -lasix if needed Status: Chronic (5) Stage 3b chronic kidney disease: -baseline Cr appears to be around 1.8 -would avoid IVF with PRBCs to minimize risk of fluid overload; encourage oral hydration -avoid nephrotoxins, renally dose meds Status: Chronic Additional A&P Information -regular diet as tolerated -fall precautions -DVT ppx with SCDs, no AC due to bleeding risk -Dispo: home -Code status: FULL code -admit to medical surgical floor Attestations Medical Necessity Statement*: hZen Reardon's hospital stay will be less than 2 midnights for management of acutely worsening anemia requiring transfusion of blood products as well as management of neutropenic fever on empiric IV antibiotics. Time Spent in Patient Care: Greater than 35 minutes (>than 50% of time spent in counselling and/or direct pt care on unit) . Coding Level of Care Code Acute Principal Military Analyst for Chg Fwd Diagnoses Anemia D64.9 Anemia type: unspecified type Neutropenic fever D70.9; R50.81 Follicular lymphoma grade 3a C82.38 Lymphoma site: multiple regions Chronic diastolic CHF (congestive heart failure) I50.32 Stage 3b chronic kidney disease N18.32
[2020-01-11] MEDS: cefepime 2,000 MG in sodium chloride 0.9% (plus) 50 ML 100 MG IV (17:01)
[2020-01-11] MEDS: allopurinol 100 mg Tablet PO (18:18)
[2020-01-11] MEDS: HYDROcodone-acetaminophen 5-325 mg Tablet 1 TAB PO (18:18)
[2020-01-11] MEDS: ferrous sulfate EC 325 mg Tablet PO (18:18)
[2020-01-11] MEDS: sodium chloride 0.9% (100 ml) 100 ML 175 ML (18:19)
[2020-01-11 22:38] LABS: Add Urine Microscopic? NO
[2020-01-11 23:16] LABS: Urine Appearance Clear (CLEAR); Urine Color Yellow (Yellow)
[2020-01-11 23:17] LABS: Bilirubin Urine Neg (Negative); Blood Urine Neg (Negative); Glucose Urine UA Norm (Normal); Ketones Urine Negative (Negative); Leukocyte Esterase Urine Negative (Negative); Nitrate Urine Negative (Negative); Protein Urine 1+ (Negative); Urobilinogen Urine Norm (Negative)
[2020-01-11 23:21] LABS: Hematocrit 22.4 % (42.0-52.0); Hemoglobin 7.2 g/dL (11.7-16.6)
[2020-01-12] VITALS (13 sets, daily range): BP systolic 97–106; BP diastolic 54–64; PULSE 84–92; RESP 16–20; TEMP 36.5–37.3; O2SAT 94–98
[2020-01-12] MEDS: sodium chloride 0.9% (100 ml) 100 ML 999 ML (00:27)
[2020-01-12] MEDS: cefepime 2,000 MG in sodium chloride 0.9% (plus) 50 ML 100 MG IV ×3 (00:33→16:52)
[2020-01-12 05:26] LABS: Hematocrit 21.4 % (42.0-52.0); Hemoglobin 6.9 g/dL (11.7-16.6); Mean Corpuscular HGB Conc 32.2 g/dL (30.0-36.0); Mean Corpuscular Hemoglobin 27.8 pg (28.0-34.0); Mean Corpuscular Volume 86.3 fL (80-94); Mean Platelet Volume 9.2 fL (7.4-10.4); Platelet Count 150 10^3/cmm (130-400); Red Blood Count 2.48 10^6/uL (4.1-5.3); Red Cell Distribution Width 15.4 % (12.1-15.1); White Blood Count 1.1 10^3/uL (4.0-10.0)
[2020-01-12 05:51] LABS: Alanine Aminotransferase 68 U/L (0-41); Albumin Level 2.4 g/dL (3.5-5.2); Alkaline Phosphatase 183 IU/L (40-130); Anion Gap 16.9 (5-19); Aspartate Amino Transferase 177 U/L (0-40); Blood Urea Nitrogen 31 mg/dL (6-20); Calcium 8.2 mg/dL (8.5-10.5); Carbon Dioxide 22 mmol/L (22-29); Chloride 97 mmol/L (98-107); Globulin 2.8 g/dL (1.3-4.6); Glucose 107 mg/dL (65-115); Osmolality Calculated 281 mOsm/kg (285-295); Potassium 3.9 mmol/L (3.5-5.1); Sodium 132 mmol/L (136-145); Total Bilirubin 0.4 mg/dL (0.15-1.2); Total Protein 5.2 g/dL (6.6-8.7)
--- NOTE | 2020-01-12 06:07 | NUR.SHIFT ---
After receiving 2 units of PRBC, the patient stated that he felt better and that he had more energy. The patient has been afebrile throughout the night, and has had periods of sleep.
[2020-01-12 06:35] LABS: Slide Review Slide Review Perform
[2020-01-12 06:38] LABS: Absolute Segmented Neutrophil 0.2 10/cmm (1.6-7.1); Band Neutrophils Absolute 0.2 10^3/cmm (0.0-1.2); Eosinophils 0 %; Lymphocytes 38 %; Monocytes Absolute 0.2 10^3/cmm (0.1-0.6); Segmented Neutrophils 14 %; Total Cells Counted 50 (0-100)
[2020-01-12 06:39] LABS: Blastocytes 1 % (0-0)
[2020-01-12 06:40] LABS: Absolute Neutrophil 0.4 10^3/cmm (1.4-6.5); Platelet Estimate Normal (Normal)
[2020-01-12 06:41] LABS: Anisocytosis Trace
[2020-01-12] MEDS: ferrous sulfate EC 325 mg Tablet PO ×2 (08:42→17:03)
[2020-01-12] MEDS: levothyroxine 50 mcg Tablet PO (08:42)
[2020-01-12] MEDS: allopurinol 100 mg Tablet PO ×2 (08:42→17:03)
--- NOTE | 2020-01-12 09:49 | CT_ITS ---
WS: [id number] CT ABDOMEN PELVIS TECHNIQUE: Noncontrast CT of the abdomen and pelvis with coronal and sagittal reformatted images. CLINICAL INFORMATION: elevated LFTs, hx of B cell lymphoma COMPARISON: PET CT December 24, 2019 DLP: 1164.[address] scans at [facility] use at least one of these dose optimization techniques: automat ed exposure control; mA and/or kV adjustment per patient size (includes targeted exams where dose is matched to clinical indication); or iterative reconstruction. FINDINGS: Moderate right and small left pleural effusions. Subsegmental atelectasis in the lung bases. Hepatome jayesh measures 21.7 cm craniocaudal. No intrahepatic biliary dilatation. Marked splenomegaly with sple en measuring 23.2 x 12.0 CM. Loss of the normal concavity. Gallbladder is contracted. Sludge or faint calculi in the gallbladder. This can be further evaluated with ultrasound. Diffuse body wall anasarca. Diffuse mesenteric edema with multiple enlarged lymph nodes in the upper abdomen and along the mesenteric root. Celiac and SMA lymphadenopathy. Marked periaortic and retroper itoneal lymphadenopathy with bulky conglomerate lymph nodes. Bilateral iliac chain and pelvic sidewal l with inguinal lymphadenopathy. Prominent perirectal lymph nodes. Lymphadenopathy is unchanged since the recent PET/CT. Right renal cyst measuring 2.9 CM. No hydronephrosis. Normal caliber abdominal aorta. Small amount of free fluid in the pelvis. Sigmoid diverticulosis. No evidence of acute diverticulitis. A few air-flu id levels in the small bowel. No evidence of high-grade obstruction. Normal visualized lumbar spine. CT/CT abdomen pelvis wo con [id number] IMPRESSION: 1. Mild hepatomegaly. No intrahepatic biliary ductal dilatation. 2. Marked splenomegaly consistent with lymphomatous infiltration. 3. Marked diffuse abdominal and pelvic lymphadenopathy described above consist ent with lymphoma. Bulky lymph nodes described above. 4. Gallbladder is contracted with a small amount of sludge or faint calculi. T his can be followed up with ultrasound. 5. Moderate right and small left pleural effusions with subsegmental atelectas is the lung bases. 6. Diffuse body wall anasarca with diffuse mesenteric edema. 7. Small amount of perihepatic and perisplenic ascites. Small amount of free f luid in the pelvis.
--- NOTE | 2020-01-12 09:49 | PM.PN ---
Subjective Subjective: Interval history: Received 2 units of PRBCs overnight, hemoglobin up to 6.9. Hemodynamically stable, afebrile, on RA. Continued LFT elevation, ANC-400. Will give additional unit of PRBCs and further evaluate LFT elevation with imaging. Reports feeling better today, has been using donut pillow for offloading his bottom which is helping. Additional unit of blood running. Medications: Reviewed: Yes Medication Review Details: Active Medications Generic Name Dose Route Start Last Admin Trade Name Freq PRN Reason Stop Dose Admin Acetaminophen 650 mg 01/11/20 17:22 Acetaminophen 32 5 Mg Tablet PO Q6H PRN Mild/Mod Pain Or Temp >/= 101 Hydrocodone Bitart /Acetaminophen 1 tab 01/11/20 17:22 01/11/20 18:18 Hydrocodone-Acet aminophen 5-325 Mg Tablet PO 1 tab Q6H PRN Administration severe pain Allopurinol 100 mg 01/11/20 18:00 01/12/20 08:42 Allopurinol 100 Mg Tablet PO 100 mg BID SCOTTIE Administration Ferrous Sulfate 325 mg 01/11/20 18:00 01/12/20 08:42 Ferrous Sulfate Ec 325 Mg Tablet PO 325 mg BID SCOTTIE Administration Cefepime HCl 2,000 mg/ Sodium 50 mls @ 100 mls/ hr 01/12/20 01:00 01/12/20 09:43 Chloride IV Infused Q8H SCOTTIE Infusion Protocol Levothyroxine Sodi um 50 mcg 01/12/20 09:00 01/12/20 08:42 Levothyroxine 50 Mcg Tablet PO 50 mcg DAILY SCOTTIE Administration Morphine Sulfate 2 mg 01/11/20 17:22 Morphine 4 Mg/Ml Sdv 1 Ml IVP Q4H PRN SEVERE PAIN Ondansetron HCl 4 mg 01/11/20 17:22 Ondansetron 2 Mg /Ml Sdv 2 Ml IVP Q6H PRN vomiting, or N/V if npo No Known Allergies Allergy (Verified 01/11/20 14:44) Vitals/I&O/Wt Last Vital Signs Temp 97.7 F 01/12/20 07:19 Pulse 92 01/12/20 08:00 Resp 18 01/12/20 07:19 BP 97/58 01/12/20 07:19 Pulse Ox 94 01/12/20 07:19 01/11/20 01/12/20 01/12/20 22:59 06:59 14:59 Intake Total 300 / 300 420 / 420 Balance 300 / 300 420 / 420 Weight last 48 hrs Weight 86.727 kg Weight 95.254 kg Physical Exam Const: COMMON NORMALS: no acute distress, patient oriented x3 and alert GENERAL APPEARANCE: cooperative and comfortable ORIENTATION/CONSCIOUSNESS: Yes awake OTHER: -overall pallor -looks appropriate for age HENMT: COMMON NORMALS: normocephalic, atraumatic, hearing grossly normal bilaterally and moist oral mucous membranes HEAD & SCALP: normocephalic and atraumatic Eye: COMMON NORMALS: Equal, round and reactive pupils present, EOMs intact bilaterally and conjunctivae normal CONJUNCTIVA: Yes conjunctivae normal PUPIL: Yes Equal, round and reactive pupils present Neck/C-Spine: COMMON NORMALS: full ROM GENERAL: Yes normal visual inspection and Yes trachea midline Resp: COMMON NORMALS: normal respiratory effort, No retractions, No use of accessory muscles and clear to auscultation bilaterally EFFORT & INSPECTION: Yes able to speak in complete sentences, Yes symmetric chest movement and No tachypneic AUSCULTATION: clear to auscultation bilaterally OTHER: -on RA Cardio: COMMON NORMALS: regular rate, regular rhythm, S1 normal heart sound present, S2 normal heart sound present and No murmurs present (Cardio) RATE: regular rate RHYTHM: regular rhythm HEART SOUNDS: S1 normal heart sound present and S2 normal heart sound present GI: COMMON NORMALS: Normal to inspection, nondistended, normoactive bowel sounds present, Soft to palpation and non-tender PALPATION: Yes Soft to palpation Extremity: COMMON NORMALS: normal to inspection, full ROM and no clubbing, cyanosis or edema; negative for no pedal edema Neuro: COMMON NORMALS: patient oriented x3, moves all extremities, no focal motor deficits and no sensory deficits noted SENSORIUM/ORIENTATION: Yes alert OTHER: -generally quite weak Psych: COMMON NORMALS: mental status grossly normal, Normal thought process present, cooperative, normal affect and speech normal SPEECH: Yes normal speech THOUGHT PROCESS: Normal thought process present Skin: COMMON NORMALS: no rashes or lesions noted, no jaundice, no petechiae and no mottling GENERAL SKIN EXAM: no rashes or lesions noted Data : 01/12/20 04:57 01/12/20 04:57 Micro: Microbiology 01/11/20 22:44 Blood Culture - Preliminary Blood SPECIMEN COLLECTED 01/11/20 22:38 Blood Culture - Preliminary Blood SPECIMEN COLLECTED A&P Assessment and plan (1) Anemia: -acutely worsening symptomatic normocytic anemia -has required transfusions intermittently, last one was on 12/28, received 2 units of PRBCs -s/p 2 units of PRBCs, Hg improved though still low (5.9->6.9), transfuse an additional unit today -has not been on AC, antiplatelets, NSAIDs -close monitoring of H/H -continue to monitor for bleeding -VSS; continue to monitor vital signs closely -telemetry monitoring -continue iron supplementation -will give dose of diuresis in light of noted evidence of anasarca on imaging Status: Acute Qualifiers: Anemia type: unspecified type Qualified Code(s): D64.9 - Anemia, unspecified (2) Neutropenic fever: -spiked low grade temp of 100.3 F in ED; has not had a reaction to blood transfusion in the past. Afebrile overnight -noted to be neutropenic, ANC-400, reverse isolation precautions -close monitoring of cell lines -continue cefepime empirically -screened for infectious source including blood cx-pending, UA-negative Status: Acute (3) Follicular lymphoma grade 3a: -on systemic chemotherapy with R-CHOP, cycle 1; last chemo treatment was about 2 weeks ago -continue allopurinol, given to prevent risk of tumor lysis syndrome -noted elevated LFTs, previously normal; CT A/P indicates mild hepatomegaly, no intrahepatic biliary ductal dilatation, marked splenomegaly and diffuse abdominal and pelvic lymphadenopathy consistent with lymphoma, moderate right and small left pleural effusions, diffuse body wall anasarca with diffuse mesenteric edema, small amount of perihepatic and perisplenic ascites. Bulky lymphadenopathy may account for elevated LFTs Status: Chronic Qualifiers: Lymphoma site: multiple regions Qualified Code(s): C82.38 - Follicular lymphoma grade IIIa, lymph nodes of multiple sites (4) Chronic diastolic CHF (congestive heart failure): -no acute exacerbation but monitor for this with increased volume from meds, PRBCs -Echo (11/2019): EF=65%, G1DD, mild TR -lasix if needed Status: Chronic (5) Stage 3b chronic kidney disease: -baseline Cr appears to be around 1.8 -would avoid IVF with PRBCs to minimize risk of fluid overload; encourage oral hydration -avoid nephrotoxins, renally dose meds -stable renal function so far, continue to monitor Status: Chronic Additional A&P Information -regular diet as tolerated -fall precautions -DVT ppx with SCDs, no AC due to bleeding risk -Dispo: home -Code status: FULL code -change to inpatient status due to need for additional blood products, continued neutropenia Attestations Medical Necessity Statement*: Patient requires hospitalization for continued management of anemia, needs transfusion of additional blood products and monitoring of cell lines given continued neutropenia. Time Spent in Patient Care: 16 - 35 minutes (>than 50% of time spent in counselling and/or direct pt care on unit). Coding Level of Care Code Acute Tail Worker for Chg Fwd Exam Comprehensive Diagnoses Anemia D64.9 Anemia type: unspecified type Neutropenic fever D70.9; R50.81 Follicular lymphoma grade 3a C82.38 Lymphoma site: multiple regions Chronic diastolic CHF (congestive heart failure) I50.32 Stage 3b chronic kidney disease N18.32
--- NOTE | 2020-01-12 10:39 | PC.CHAP ---
Pastoral Care Encounter/Spiritual Assessment Type of Contact [] Declined cmm programmer visit [] Patient/Family/Request visit [] Outpatient visit [] Follow-up visit [] Physician referral [] Code/Alert [] Routine visit [] Staff referral [] Actively dying [] Patient sleeping [] Family support [] [] Out of room [] Palliative care [] [] Receiving care in room [] Pre-surgical visit [] Trauma [] Long length of stay [] ICU visit [x] Other: Isolation Relational/Emotional Strength [] Patient feels connected with others/family/visitors/staff [] Distress [] Loneliness/isolation [] Abandonment Spirituality of Patient [] Person of Lisa [] Attends Mu-Ism of their Lisa [] Believes in Prayer [] Reads Bible or Nondenominational materials [] There are Spiritual issues to be addressed Pin Inserter Regulator Interventions [] Prayer [] Active listening [] Non-anxious presence [] Spiritual/emotional support [] Crisis/trauma care [] Spiritual counseling [] Bereavement support [] Provided bereavement packet [] Provided Bible/devotional materials [] Provided toy/stuffed animal, coloring book to patient or family member [] Provided Communion [] Anointing/[place] [] Salvation [] Completed spiritual assessment [] Other: Impact on Illness or Injury [] Angry [] Fearful [] Anxious [] Often cries [] Exhaustion [] Unable to work [] Unable to attend yazidi [] Unable to walk/stand [] Unable to read [] Unable to drive [] Unable to eat/drink [] Unable to sleep [] Unable to be with family [] Patient intubated [] Other: Summary Isolation Time spent with patient 5 mins
[2020-01-12] MEDS: sodium chloride 0.9% (100 ml) 100 ML 10 ML (12:25)
[2020-01-12 12:45] LABS: Hepatitis A Antibody IgM Non-Reactive (Nonreactive); Hepatitis B Core IgM Non-Reactive (Nonreactive); Hepatitis B Surface Antigen Non-Reactive (Nonreactive); Hepatitis C Virus Antibody Non-Reactive (Nonreactive)
[2020-01-12] MEDS: bumetanide 0.25 mg/mL SDV 4 mL 1 MG IV (16:52)
[2020-01-12 17:18] LABS: Hematocrit 24.1 % (42.0-52.0); Hemoglobin 7.8 g/dL (11.7-16.6)
--- NOTE | 2020-01-12 18:44 | PC.NURSE ---
Pt has rested well throughout the shift. Denies pain but says he's very tired and feels weak. Pt has tolerated diet well and has had good output. Bedside report given to Lauren Lane RN.
[2020-01-12] MEDS: HYDROcodone-acetaminophen 5-325 mg Tablet 1 TAB PO (21:22)
[2020-01-13 00:23] VITALS: BP 100/64; PULSE 83; RESP 16; TEMP 36.7; O2SAT 98
[2020-01-13] MEDS: cefepime 2,000 MG in sodium chloride 0.9% (plus) 50 ML 100 MG IV ×2 (00:25→08:18)
[2020-01-13 04:42] VITALS: BP 99/60; PULSE 88; RESP 16; TEMP 36.8; O2SAT 96
[2020-01-13 05:57] LABS: Anion Gap 13.7 (5-19); Blood Urea Nitrogen 33 mg/dL (6-20); Calcium 8.2 mg/dL (8.5-10.5); Carbon Dioxide 23 mmol/L (22-29); Chloride 98 mmol/L (98-107); Glomerular Filtration Rate 35.4 mL/min (90-130); Glucose 108 mg/dL (65-115); Osmolality Calculated 280 mOsm/kg (285-295); Potassium 3.7 mmol/L (3.5-5.1); Sodium 131 mmol/L (136-145)
[2020-01-13 07:33] LABS: Basophils % 2.1 %; Eosinophils # 0.1 10^3/uL (0.0-0.8); Eosinophils % 4.9 %; Hematocrit 26.7 % (42.0-52.0); Hemoglobin 8.4 g/dL (11.7-16.6); Lymphocytes # 0.6 10^3/uL (0.8-4.8); Lymphocytes % 40.8 %; Mean Corpuscular HGB Conc 31.5 g/dL (30.0-36.0); Mean Corpuscular Hemoglobin 27.5 pg (28.0-34.0); Mean Corpuscular Volume 87.5 fL (80-94); Mean Platelet Volume 9.5 fL (7.4-10.4); Monocytes # 0.3 10^3/uL (0.2-0.9); Monocytes % 20.4 %; Neutrophils % 26.9 %; Nucleated Red Blood Cells % 0 %; Platelet Count 174 10^3/cmm (130-400); Red Blood Count 3.05 10^6/uL (4.1-5.3); Red Cell Distribution Width 15.7 % (12.1-15.1); White Blood Count 1.4 10^3/uL (4.0-10.0)
[2020-01-13 07:37] LABS: Neutrophils # 0.38 10^3/uL (1.8-7.7); Slide Review Slide Review Perform
[2020-01-13 07:40] VITALS: BP 102/59; PULSE 87; RESP 18; TEMP 37; O2SAT 96
[2020-01-13 08:00] VITALS: PULSE 87
[2020-01-13] MEDS: ferrous sulfate EC 325 mg Tablet PO (08:18)
[2020-01-13] MEDS: allopurinol 100 mg Tablet PO (08:18)
[2020-01-13] MEDS: levothyroxine 50 mcg Tablet PO (08:18)
--- NOTE | 2020-01-13 10:19 | PC.NURSE ---
AMA this am pt was asking blog writer if there was a expedited time he would be able to leave, blog writer told him no news yet but rounding should happen around 9am. At 10 am pt presed call light asking if he could leave, Dr. Olsen was called and she stated he would need to stay. pt said he would not and requested to leave AMA, Charge nurse was informed and provided papers. Training Specialist talked to pt about staying due to low lab levels, pt stated this was nothing new and he would rather be at home than here. AMA papers signed, IV taken out, and was notified.
--- NOTE | 2020-01-13 10:43 | P.DS_ITS ---
Discharge Providers Date of Admission: 01/12/20 09:50 Date of Discharge: January 13, 2020 Attending Provider at Admission: Mai Olsen MD Attending Provider at Discharge: Mai Olsen MD Consults: None Primary Care Provider: Sarai Watt Diagnoses at Discharge Discharge Diagnosis (1) Anemia: Status: Acute Permanent problem details: -s/p 3 units of PRBCs, Hg up to 8.4 today Qualifiers: Anemia type: unspecified type Qualified Code(s): D64.9 - Anemia, unspecified (2) Neutropenic fever: Status: Acute Permanent problem details: -ANC-380, on reverse isolation -has been on empiric Cefepime (3) Follicular lymphoma grade 3a: Status: Chronic Permanent problem details: -on chemotherapy with CHOP -diagnosed on 10/2019 -noted elevated LFTs, previously normal; CT A/P indicates mild hepatomegaly, no intrahepatic biliary ductal dilatation, marked splenomegaly and diffuse abdominal and pelvic lymphadenopathy consistent with lymphoma, moderate right and small left pleural effusions, diffuse body wall anasarca with diffuse mesenteric edema, small amount of perihepatic and perisplenic ascites. Bulky lymphadenopathy may account for elevated LFTs Qualifiers: Lymphoma site: multiple regions Qualified Code(s): C82.38 - Follicular lymphoma grade IIIa, lymph nodes of multiple sites (4) Chronic diastolic CHF (congestive heart failure): Status: Chronic Permanent problem details: -Echo (11/2019): EF=65%, G1DD, mild TR (5) Stage 3b chronic kidney disease: Status: Chronic Permanent problem details: -baseline Cr-1.8 Reason for Visit Reason for Visit: SENT BY DR MCLEAN/BLOOD TRANSFUSION Hospital Course Hospital Course Patient was admitted to the medical surgical floor and received 2 units of PRBCs initially due to noted acutely worsening anemia. Hemoglobin improved some but he required transfusion of 1 additional unit of blood and hemoglobin this morning is 8.4. He was found to be neutropenic and did have a low-grade fever for which he was covered with empiric cefepime. He remains neutropenic with ANC of 380 today and has been on reverse isolation precautions. No infectious etiology identified, blood cultures have been negative, urinalysis was negative and he has had no more fevers. He was noted to have elevated LFTs for which she had an abdominal CT scan showing significant lymphadenopathy early and no intrahepatic biliary ductal dilatation. Due to noted evidence of anasarca and known history of underlying diastolic CHF, he did receive some IV diuresis. Early this morning he stated that he would like to leave, is not ready for discharge given continued neutropenia but opted to leave AMA. Physical Exam Narrative: EXAM NARRATIVE: -Patient left AMA prior to being examined Discharge Data Data Completed and Pending: Completed Studies During Hospitalization Category Date Time Status CT abdomen pelvis wo con 16530 Rout ine Cat Scan 01/12/20 09:49 Completed Pending at discharge Category Date Time Status Blood Culture Sta t Lab 01/11/20 22:44 Results Labs from last 24 hours 01/13/20 01/13/20 01/12/20 05:12 05:12 17:01 WBC 1.4 L RBC 3.05 L Hgb 8.4 L 7.8 L Hct 26.7 L 24.1 L MCV 87.5 MCH 27.5 L MCHC 31.5 RDW 15.7 H Plt Count 174 MPV 9.5 Neut % (Auto) 26.9 Lymph % (Auto) 40.8 [place] % (Auto) 20.4 Eos % (Auto) 4.9 Baso % (Auto) 2.1 Neut # (Auto) 0.38 L* Lymph # (Auto) 0.6 L [place] # (Auto) 0.3 Eos # (Auto) 0.1 Baso # (Auto) 0.0 Nucleated RBC % (a uto) 0 Nucleated RBCs # 0.0 Sodium 131 L Potassium 3.7 Chloride 98 Carbon Dioxide 23 Anion Gap 13.7 BUN 33 H Creatinine 2.0 H GFR Calculation 35.4 L Glucose 108 Calculated Osmolal ity 280 L Calcium 8.2 L Hepatitis A IgM Ab Hep Bs Antigen Hep B Core IgM Ab Hepatitis C Antibo dy Blood Type Rho(D) Type Antibody Screen Crossmatch 01/12/20 01/11/20 04:57 13:38 WBC RBC Hgb Hct MCV MCH MCHC RDW Plt Count MPV Neut % (Auto) Lymph % (Auto) [place] % (Auto) Eos % (Auto) Baso % (Auto) Neut # (Auto) Lymph # (Auto) [place] # (Auto) Eos # (Auto) Baso # (Auto) Nucleated RBC % (a uto) Nucleated RBCs # Sodium Potassium Chloride Carbon Dioxide Anion Gap BUN Creatinine GFR Calculation Glucose Calculated Osmolal ity Calcium Hepatitis A IgM Ab Non-reactive Hep Bs Antigen Non-reactive Hep B Core IgM Ab Non-reactive Hepatitis C Antibo dy Non-reactive Blood Type O Negative Rho(D) Type Negative Antibody Screen Negative Crossmatch See Detail Vitals: Last Vital Signs Temp 98.6 F 01/13/20 07:40 Pulse 87 01/13/20 08:00 Resp 18 01/13/20 07:40 BP 102/59 01/13/20 07:40 Pulse Ox 96 01/13/20 07:40 Discharge Plan Discharge Patient Disposition: Left Against Medical Advice Condition: Stable Prescriptions: No Action hydrocodone-acetaminophen [[place]] 5-325 mg tablet 1 tab PO Q6H PRN (Reason: pain) 7 Days Qty: 20 RF: 0 ferrous sulfate [Feosol] 325 mg (65 mg iron) tablet 325 mg PO BID RF: 0 levothyroxine 50 mcg Tablet 50 mcg PO DAILY Qty: 30 RF: 0 allopurinol 100 mg Tablet 100 mg PO BID RF: 0 Referrals: Marci Mclean MD [Staff Physician] - 1 week Sarai Watt [Primary Care Provider] - 4-7 days Discharge Diet: Regular Discharge Activity: Increase activity as tolerated Discharge Attestations Time Spent in Discharge Care*: less than 30 min Status at Discharge: Cognitive status at discharge: cognitively intact , Behavioral status at discharge: cooperative and independent in ADL's , Functional status at discharge: independent ambulation Quality Metrics Clinical Quality Measures During this hospital stay, did patient experience: None Coding Level of Care Code Acute Shop Service Technician for Sunithag Fwd Diagnoses Anemia D64.9 Anemia type: unspecified type Neutropenic fever D70.9; R50.81 Follicular lymphoma grade 3a C82.38 Lymphoma site: multiple regions Chronic diastolic CHF (congestive heart failure) I50.32 Stage 3b chronic kidney disease N18.32
[2020-01-13 11:19] VITALS: PULSE 87
== END 2020-01-13 11:00 | disposition left against medical advice (07) | DRG 809 ==
LOC: ER 15:22 → MEDSURG 15:41
PROVIDERS: Nurse Practitioner; Admitting Provider Family Medicine; Emergency Provider Emergency Medicine; PCP Nurse Practitioner Family; Visit Provider Family Medicine
DX: D70.1 Agranulocytosis secondary to cancer chemotherapy (principal); C82.30 Follicular lymphoma grade IIIa, unspecified site; I50.32 Chronic diastolic (congestive) heart failure; T45.1X5A Adverse effect of antineoplastic and immunosuppressive drugs, initial encounter; N18.30 Chronic kidney disease, stage 3 unspecified; E03.9 Hypothyroidism, unspecified; Z79.899 Other long term (current) drug therapy; Z53.29 Procedure and treatment not carried out because of patient's decision for other reasons
CPT/HCPCS: 12345; 36415; 36430; 36591; 74176; 80048; 80053; 80074; 81003; 85007; 85014; 85018; 85025; 86850; 86900; 86920; 87040; 99282; G0378; J0692; J3490; P9040

== ENCOUNTER 2020-02-08 13:30 | Outpatient (RCR) | payer SELFPAY ==
[2020-01-19 09:10] LABS: Hematocrit 26.7 % (42.0-52.0); Hemoglobin 8.4 g/dL (11.7-16.6); Mean Corpuscular HGB Conc 31.5 g/dL (30.0-36.0); Mean Corpuscular Hemoglobin 27.7 pg (28.0-34.0); Mean Corpuscular Volume 88.1 fL (80-94); Mean Platelet Volume 8.8 fL (7.4-10.4); Platelet Count 218 10^3/cmm (130-400); Red Blood Count 3.03 10^6/uL (4.1-5.3); Red Cell Distribution Width 16.3 % (12.1-15.1); White Blood Count 4.9 10^3/uL (4.0-10.0)
[2020-01-19 09:34] LABS: Alanine Aminotransferase 33 U/L (0-41); Albumin Level 2.6 g/dL (3.5-5.2); Alkaline Phosphatase 186 IU/L (40-130); Anion Gap 16.5 (5-19); Aspartate Amino Transferase 70 U/L (0-40); Blood Urea Nitrogen 52 mg/dL (6-20); Calcium 8.5 mg/dL (8.5-10.5); Carbon Dioxide 20 mmol/L (22-29); Chloride 100 mmol/L (98-107); Globulin 2.9 g/dL (1.3-4.6); Glomerular Filtration Rate 16.9 mL/min (90-130); Glucose 112 mg/dL (65-115); Osmolality Calculated 289 mOsm/kg (285-295); Potassium 4.5 mmol/L (3.5-5.1); Sodium 132 mmol/L (136-145); Total Bilirubin 0.4 mg/dL (0.15-1.2); Total Protein 5.5 g/dL (6.6-8.7)
[2020-01-19 10:00] LABS: Slide Review Slide Review Perform
[2020-01-19 10:19] LABS: Absolute Eosinophils 0.3 10^3/cmm (0.0-0.7); Absolute Neutrophil 2.6 10^3/cmm (1.4-6.5); Absolute Segmented Neutrophil 1.1 10/cmm (1.6-7.1); Band Neutrophils Absolute 1.6 10^3/cmm (0.0-1.2); Basophils Absolute 0.1 10^3/cmm (0.0-0.2); Eosinophils 7 %; Lymphocytes 20 %; Microcytosis 1+; Monocytes Absolute 0.4 10^3/cmm (0.1-0.6); Platelet Estimate Normal (Normal); Segmented Neutrophils 22 %; Total Cells Counted 100 (0-100)
[2020-01-19 11:34] LABS: Glomerular Filtration Rate 16.4 mL/min (90-130)
[2020-01-19] MEDS: sodium chloride 0.9% 1,000 ML 500 ML IV (12:23)
[2020-01-19 12:51] LABS: Lactate Dehydrogenase 212 U/L (135-225); Phosphorus 4.4 mg/dL (2.5-4.5); Uric Acid 7.9 mg/dL (3.4-7.0)
[2020-01-20] MEDS: sodium chloride 0.9% 1,000 ML 999 ML IV (09:00)
[2020-01-20 09:17] LABS: Basophils # 0.1 10^3/uL (0.0-0.1); Basophils % 1.6 %; Eosinophils # 0.1 10^3/uL (0.0-0.8); Eosinophils % 2.2 %; Hematocrit 25.5 % (42.0-52.0); Lymphocytes # 0.9 10^3/uL (0.8-4.8); Lymphocytes % 19.8 %; Mean Corpuscular HGB Conc 31.4 g/dL (30.0-36.0); Mean Corpuscular Hemoglobin 28.2 pg (28.0-34.0); Mean Corpuscular Volume 89.8 fL (80-94); Mean Platelet Volume 8.8 fL (7.4-10.4); Monocytes # 0.7 10^3/uL (0.2-0.9); Monocytes % 15.3 %; Neutrophils # 2.49 10^3/uL (1.8-7.7); Neutrophils % 55.9 %; Nucleated Red Blood Cells % 0 %; Platelet Count 199 10^3/cmm (130-400); Red Blood Count 2.84 10^6/uL (4.1-5.3); Red Cell Distribution Width 16.6 % (12.1-15.1); White Blood Count 4.5 10^3/uL (4.0-10.0)
[2020-01-20 09:34] LABS: Alanine Aminotransferase 26 U/L (0-41); Albumin Level 2.5 g/dL (3.5-5.2); Alkaline Phosphatase 173 IU/L (40-130); Anion Gap 17.3 (5-19); Aspartate Amino Transferase 50 U/L (0-40); Blood Urea Nitrogen 52 mg/dL (6-20); Calcium 8.2 mg/dL (8.5-10.5); Carbon Dioxide 19 mmol/L (22-29); Chloride 101 mmol/L (98-107); Globulin 2.5 g/dL (1.3-4.6); Glomerular Filtration Rate 17.4 mL/min (90-130); Glucose 110 mg/dL (65-115); Osmolality Calculated 291 mOsm/kg (285-295); Potassium 4.3 mmol/L (3.5-5.1); Sodium 133 mmol/L (136-145); Total Bilirubin 0.3 mg/dL (0.15-1.2)
[2020-01-20 09:47] LABS: Slide Review Slide Review Perform
--- NOTE | 2020-01-20 11:50 | US_ITS ---
WS: [id number] RENAL ULTRASOUND REASON FOR EXAM: ELEVATED KREATININE 3.7 TODAY/FOLLICULAR LYMPHOMA TECHNIQUE: Grayscale and Doppler ultrasound examination of the kidneys. FINDINGS: Moderately large pleural effusions with small amount of ascites. Right kidney: Right kidney measures 12.7 cm x 6.3 cm x 5.1 cm. Upper pole renal cyst. No hydronephros is. Left kidney: Left kidney measures 12.4 cm x 5.4 cm x 4.5 cm. No mass or hydronephrosis. No calculi or hydronephrosis seen on CT scan of 01/12/2020. The normal differentiation between the renal cortex and renal medulla not demonstrated on this examin ation and the echogenicity of the kidneys is very similar to that of the liver. Normally the kidney i s moderately less echogenic than the liver. From the CT scan it is possible there is lymphomatous inf iltration of the the liver and spleen. US/US renal BI with PV bladder IMPRESSION: Large pleural effusions with small amount of ascites. There is no hydronephrosis. The echotexture of the kidneys is not normal. Possi hemalatha the kidneys are infiltrated with lymphoma. The main finding against this is that they do not appear enlarged. The other consideration would been be nephro toxicity of the chemotherapy.
--- NOTE | 2020-01-22 22:04 | ONC FU_ITS ---
[facility] Patient Note Patient: Zhen Reardon Unit #: [id number]: [id number] Dictated By: Chris GodfreyDate of Visit: Jan 19, 2020 Onc MED Follow-Up/Prog Note Chief Complaint: Follicular lymphoma History of Present Illness: Mr. Reardon is a 49-year-old gentleman with newly diagnosed grade 3A follicular lymphoma. He had a right posterior triangle cervical lymph node biopsy done on November 09, 2019. As per patient, he was in his usual health until about 3 months ago when he started having dry cough and subsequently started feeling weak and tired. That was followed by night sweats, weight loss and generalized body aches and pain requiring Percocet. Mr Reardon went to see his primary care physician and a CT scan of chest/abdomen/pelvis was ordered. The CTs were obtained on November 01, 2019 and reported bulky lymphadenopathy in left axilla, upper anterior and middle mediastinum and also right axillary lymph node involvement. His subcarinal lymph node measures up to 5.1 x 2.6 cm and left axillary lymph node measures up to 4 x 3.7 cm and right axillary lymph node 4.1 x 1.5 cm and numerous enlarged internal mammary chain lymph nodes, lung field no abnormality seen no bony destruction seen. CT scan of abdomen and pelvis showed extensive intra-abdominal lymphadenopathy with massive splenomegaly size about 22 cm, and extensive retroperitoneal, mesenteric, portal adenopathy largest node is in the lindsay hepatis measuring 8.1 x 5.3 x 6.4 cm and numerous bulky masses are observed above this level in periaortic paracaval retroperitoneum and throughout both iliac chains and obturator chains in the lower pelvis no bony lytic lesions seen. No free air seen. He was referred to surgery for cervical lymph node biopsy which was done on November 09, 2019 and the final pathology report came back follicular lymphoma, grade 3A, (more than 15 centroblast per high-power field)Immunohistochemistry positive for CD20, PAX 5, CD10, BCL-2, BCL 6 with partial and weakly positive. And Ki-67 was 35 to 40%, MUM1 positive and focus which is partially lacking BCL-2, as per pathology, signifies a higher-grade and consistent with grade 3A. Mr Reardon also had significant B symptoms drenching sweating, weight loss more than 10 pounds in the last couple of months despite of good appetite but no fever- probably masked by Tylenol in Percocet. Patient denies smoking or alcohol use. No family history of lymphoma or blood disorder. Mr Reardon received 4 units of packed RBC on December 06, 2019, as per patient his hemoglobin improved to 7.3 g from 5.3 g after 3 units and then 1 more unit was given with that his hemoglobin improved to 8.3 g. Echocardiogram done on December 06, 2019 showed ejection fraction 65% CT PET scan was done on December 24, 2019. The PET CT reported widespread FDG positive lymphoma from the head and neck to the pelvis; splenic with lymphomatoud infiltration; bilateral pleural effusions with free abdominal fluid present; widespread marrow uptake; this may be reactive, although malignancy infiltration cannot be excluded; malignant left upper lobe pleural implant. Mr. Reardon was referred to Dr. Mclean for treatment. He did have port placement of left subclavian vein PowerPort Dr. Contreras on 12/19/2019. He has been offered treatment with R-CHOP but will start Rituxan the second cycle. Mr. Reardon is here today for follow-up. He started his first cycle of CHOP on 12/29/2019. Rituxan was not given with the first CHOP treatment. He is due for cycle 2 with the plan to initiate the Rituxan. Mr. Reardon was admitted to [facility] on 01/12/2020 with a hemoglobin of 5.9. He received 3 units of packed red blood cells and his hemoglobin on 01 12 was 8.4. He had also been neutropenic and was on reverse isolation and empiric cefepime. He ultimately signed out AMA on 01/13/2020 as he is states I just cannot sit around doing nothing anymore . He states that he did not feel like anything is being down at that point so he went had and went home. He had abdominal CT on 01/12/2020 without contrast. Reported mild hepatomegaly but no intrahepatic biliary ductal dilatation. Marked splenomegaly consistent with lumbar Aubrey infiltration. Marked diffuse abdominal and pelvic lymphadenopathy described above consistent with lymphoma. Bulky lymph nodes. Gallbladder is contracted with a small amount of sludge or faint calculi. This can be followed up with ultrasound. Moderate right and small left pleural effusions with subsegmental atelectasis to the lung bases. Diffuse wall and this area with diffuse mesenteric edema. Small amount of perihepatic and perisplenic ascites. Small amount of free fluid in the pelvis. The lymphadenopathy was unchanged since the recent PET/CT . Mr. Reardon is here today for follow-up. He is due for cycle 2 R-CHOP. He states overall he still feels pretty washed out. He is extremely tired but is able to do some of his ADLs. He states he did feel better after the blood. His appetite waxes and wanes. He has had no persistent nausea or vomiting. He denies any diarrhea or constipation. He denies any neuropathy. He states he has not had any fever or chills. He denies any known Covid exposure or symptoms. He does not have any pending test. His ECOG is 2. Past Medical History: Anemia Hypothyroidism Past Surgical History: Lymph node removal from neck Left subclavian Power Port-[facility] in 2019 Allergies: No Known Allergies. Medications: Allopurinol 1 Tablet (of 100 mg) Oral b.i.d. Ferrous Sulfate 1 Tablet (of 325 (65 fe) mg) Oral b.i.d. HYDROcodone-Acetaminophen 1 Tablet (of 5-325 mg) Oral b.i.d. Levothyroxine Sodium 1 Tablet (of 25 mcg) Oral daily Family History: Mr. Reardon's mother is : ovarian cancer. Mr. Reardon's father is . Mr. Reardon's maternal grandmother is : myocardial infarction. His maternal grandfather is . His paternal grandmother is . His paternal grandfather is . Social History: Mr. Reardon is . Mr. Reardon has never smoked. He has no history of drinking. Review Of Symptoms: Constitutional Denies fevers, chills, night sweats, excessive fatigue or weight loss. Tired but stable and is able to do ADLs. Allergic/Immunologic No reactions. Eyes Denies significant visual changes. No diplopia. No amaurosis. ENMT Denies changes in hearing, sore throat, mouth sores, difficulty or changes in swallowing ability, and/or sinus drainage. Hematologic/Lymphatic Denies easy bruising or bleeding. The patient denies any tender or palpable lymph nodes. Respiratory Denies worsening dyspnea on exertion, chest pain, cough or hemoptysis. Denies orthopnea. Cardiovascular Denies anginal chest pain, palpitations or orthopnea. Gastrointestinal Denies nausea, vomiting, diarrhea, GI bleeding, or constipation. Denies change in bowel habits and/or stool color, no heartburn or early satiety. Genitourinary (M) Denies hematuria, dysuria, increased frequency, urgency, hesitancy or incontinence. Musculoskeletal Denies joint pain, swelling or redness. No decreased range of motion. Integumentary Denies chronic rashes, inflammation, ulcerations or skin changes. Neurologic Denies headache, blurred vision, and no areas of focal weakness or numbness. Gait assisted with walking cane today. No sensory problems. Psychiatric Denies insomnia, depression, renny or mood swings. Vital Signs: Performed on Jan 19, 2020 09:21 Height - 62.00 in Weight - 190.4 lbs (LOW) BSA - 1.87 sq.m BMI - 34.82 (HIGH) Temperature - 98.3 F (LOW) Pulse - 87 /min Respiration - 20 /min BP - 89/50 mm(hg) (LOW) O2 Sat - 92 % (LOW) Pain - 0,2 - Ambulatory/capable of all self-care, unable to perform any work activities. Up and about more than 50% of waking hours. (ECOG) Physical Examination: Constitutional Alert, oriented, no acute distress. Skin pale/pink, warm and dry. Head Normocephalic; atraumatic. Eyes Conjunctivae and sclerae are clear and without icterus. Pupils are reactive and equal. Neck Supple without masses or thyromegaly. No jugular venous distension. Respiratory Lungs are clear to auscultation without rhonchi or wheezing. Cardiovascular Regular rate and rhythm of heart without murmurs,clicks, gallops or rubs. Chest Left subclavian PowerPort site is unremarkable. Abdomen Non-tender, non-distended, no masses or ascites. Good bowel sounds noted in all quads. No guarding or rebound tenderness. No pulsatile masses. Back/Spine Non-tender to palpation. Extremities No visible deformities, no cyanosis, clubbing or edema. Musculoskeletal No tenderness or swelling, normal range of motion without obvious weakness. Integumentary No rashes or lesions. Neurologic No sensory or motor deficits, normal cerebellar function, normal gait. Psychiatric Alert and oriented times three. Coherent speech. Verbalizes understanding of our discussions today. Laboratory:Test performed on Jan 20, 2020 09:00 Sodium 133 mmol/L Potassium 4.3 mmol/L Chloride 101 mmol/L CO2 19 mmol/L Anion Gap 17.3 BUN 52 mg/dL Creatinine 3.7 mg/dL Cr Clearance (Est) 28.8500 mL/min eGFR 17.4 mL/min Glucose 110 mg/dL Osmolality - Calculated 291 mOsm/kg Calcium 8.2 mg/dL Protein, Total 5.0 g/dL Albumin 2.5 g/dL Globulin 2.5 g/dL Bilirubin, Total 0.3 mg/dL ALT (SGPT) 26 U/L AST (SGOT) 50 U/L Alkaline Phosphatase 173 IU/L WBC 4.5 10 3/uL RBC 2.84 10 6/uL HGB 8.0 g/dL HCT 25.5 % MCV 89.8 fL MCH 28.2 pg MCHC 31.4 g/dL RDW 16.6 % Platelet Count 199 10 3/cmm MPV 8.8 fL Neutrophils 2.49 10 3/uL Lymphocytes 0.9 10 3/uL Monocytes 0.7 10 3/uL Eosinophils 0.1 10 3/uL Basophils 0.1 10 3/uL Neutrophil % 55.9 % Lymphocyte % 19.8 % Monocyte % 15.3 % Eosinophil % 2.2 % Basophils % 1.6 % NRBC % 0 % CBC Slide Review Slide Review Perform SLIDE REVIEW AGREES WITH AUTOMATED RESULTS ST Test performed on Jan 19, 2020 08:45 LDH (Total) 212 U/L Magnesium 2.0 mg/dL Phosphorus 4.4 mg/dL Uric Acid 7.9 mg/dL Manual Segs % 22 % Manual Bands % 32.0 % Manual Lymphs % 20 % Atypical Lymphs % 3.0 % Total Cells Counted 100 Manual Monos % 9.0 % Manual Eos % 7 % Manual Basos % 2.0 % Metamyelocytes % 5.0 % Microcytosis 1+ Platelet Estimate Normal Manual Segs Abs 1.1 10/cmm Manual Bands Abs 1.6 10 3/cmm Manual Neutrophils Abs 2.6 10 3/cmm Manual Monocytes Abs 0.4 10 3/cmm Manual Eosinophils Abs 0.3 10 3/cmm Manual Basophils Abs 0.1 10 3/cmm Test performed on Dec 29, 2019 13:32 Anti-D Negative Blood Type ON Antibody Screen (Gel) NEGATIVE Test performed on Dec 06, 2019 14:35 IgG 1211 mg/dL IgA 104 mg/dL IgM 52 mg/dL Impression: Follicular lymphoma grade 3A per right posterior triangle cervical lymph node biopsy done on November 09, 2019, 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 Ki-67 proliferation index 30 to 40% and MUM1, positive and focus which is partially lacking BCL-2, as per pathology signifies a high-grade and consistency with grade 3A CT scan of chest abdomen pelvis done on November 01, 2019 showed extensive, bulky bilateral axillary lymphadenopathy left axillary lymph node 4 x 3.7 cm right axillary lymph node 4.1 x 1.5 cm and middle mediastinum and anterior mediastinal lymphadenopathy, subcarinal lymph node 5.1 x 2.6 cm and numerous enlarged internal mammary chain lymph nodes and extensive retroperitoneal para-aortic, paracaval lymphadenopathy and largest mass 8.1 x 5.3 x 6.4 cm in the lindsay hepatis posterior to the pancreatic head and anterior to inferior vena cava and numerous bulky masses are observed above this level in the lindsay, throughout the periaortic and paracaval, retroperitoneal and both iliac chain and obturator chains on.pelvis. But no bone abnormality seen and massive splenomegaly size were 22 cm., Clinically, high risk, bulky disease, Anemia, on oral iron per PMD. Because of persistent and progressive anemia, decided to proceed with systemic chemotherapy with R-CHOP, his echocardiogram showed ejection fraction 65%, Plan: Follicular lymphoma: A. Hold planned cycle 2 R-CHOP and Neulasta. He has a creatinine today at 3.8. This was initially repeated and reported at 3.9. B. Acute renal failure possibly due to to tumor lysis syndrome. A LDH, uric acid, phosphorus and magnesium were requested to the blood in lab. Mr. Reardon states that he is urinating with no difficulties. C. He was given 1 L of hydration. His labs were reported to Dr. Mclean and he requested that Mr. Reardon return tomorrow for repeat hydration and labs. D. We will have him return in the morning with CBC CMP and typenex. We will plan on offering hydration at that time. 2. Labs from today were reviewed in detail discussed with Mr. Reardon and a copy was given to him. WBC 4.9, hemoglobin 8.4, platelets 218,000 potassium 4.5 random glucose 112 BUN is 52 creatinine is 3.8 calcium 8.5 LFTs are normal with the exception of AST which was 70 but improved from last week at 174. His alk phos was down to 186. His weight is noted to be down approximately 16 pounds from his visit on 01/03/2020. 3. I discussed with Mr. Reardon the possibility of tumor lysis syndrome. He will return tomorrow for hydration. He is aware that if he has any further concerns or any complications he will need to return immediately to the emergency room. He verbalized understanding. Signed By: Chris Godfrey-, AOSILVESTREP Marci Mclean MD <<Signature on File>>
--- NOTE | 2020-01-23 00:23 | ONC FU_ITS ---
[facility] Patient Note Patient: Zhen Reardon Unit #: [id number]: [id number] Dictated By: Clem Solomon M.D.Date of Visit: Jan 20, 2020 Onc MED Follow-Up/Prog Note Mr. Reardon presents today as requested for follow-up creatinine. He did receive 1 L of normal saline yesterday and reports he drank quite a bit of fluid last night. He he also had repeat CBC today given that he recently had to have 3 units of packed red blood cells due to hemoglobin of 5.9 on 01/11/2020. He denies any new concerns. He continues to be washed out and tired. He states his appetite is poor but he is attempting to eat and drink. He denies any new pain. He has had no fever or chills. He states he is still urinating without any problems. He denies any hematuria. He denies any shortness of breath orthopnea. He denies any lower extremity edema. He has had no diarrhea or constipation. His ECOG is 2. Repeat creatinine today was 3.7 with a BUN of 52. Mr. Reardon was given an additional liter of normal saline. His LDH from 01/19/2020 was 212, phosphorus was 4.4 uric acid was 7.9. There is still concern for tumor lysis syndrome. Mr. Reardon was advised that after discussing his labs with Dr Mclean, it is do recommend that he be admitted. He states he just doesn't want to sit in the hospital and nothing be done all weekend. He was sent for bilateral ultrasound postvoid residual. It was noted that he did have large pleural effusions with small amount of ascites. There was no hydronephrosis. Post void reported that he emptied out to less than 10 cc residual urine. There was no evidence of obstruction. Mr. Reardon has been given instructions to return to the office on Thursday which time repeat his CBC CMP and type and screen. He may receive further hydration at that time as well. If he continues to show acute renal failure he will need referral to nephrology. Mr. Reardon is in agreement to this plan. He is agreeable to present to the emergency room over the weekend should he have any problems voiding or if he has any further symptoms or decline in his overall performance status. Total time spent in evaluation with Mr. Reardon's labs, physical assessment, and determining plan of care and discussing this plan of care along with instructions on when to return to the clinic and or emergency room over the weekend was greater than 60 minutes. Vital Signs: Performed on Jan 20, 2020 09:15 Height - 62.00 in Temperature - 97.9 F (LOW) Pulse - 75 /min Respiration - 18 /min BP - 96/53 mm(hg) O2 Sat - 95 % (LOW), Laboratory:Test performed on Jan 20, 2020 09:00 Sodium 133 mmol/L Potassium 4.3 mmol/L Chloride 101 mmol/L CO2 19 mmol/L Anion Gap 17.3 BUN 52 mg/dL Creatinine 3.7 mg/dL Cr Clearance (Est) 28.8500 mL/min eGFR 17.4 mL/min Glucose 110 mg/dL Osmolality - Calculated 291 mOsm/kg Calcium 8.2 mg/dL Protein, Total 5.0 g/dL Albumin 2.5 g/dL Globulin 2.5 g/dL Bilirubin, Total 0.3 mg/dL ALT (SGPT) 26 U/L AST (SGOT) 50 U/L Alkaline Phosphatase 173 IU/L WBC 4.5 10 3/uL RBC 2.84 10 6/uL HGB 8.0 g/dL HCT 25.5 % MCV 89.8 fL MCH 28.2 pg MCHC 31.4 g/dL RDW 16.6 % Platelet Count 199 10 3/cmm MPV 8.8 fL Neutrophils 2.49 10 3/uL Lymphocytes 0.9 10 3/uL Monocytes 0.7 10 3/uL Eosinophils 0.1 10 3/uL Basophils 0.1 10 3/uL Neutrophil % 55.9 % Lymphocyte % 19.8 % Monocyte % 15.3 % Eosinophil % 2.2 % Basophils % 1.6 % NRBC % 0 % CBC Slide Review Slide Review Perform SLIDE REVIEW AGREES WITH AUTOMATED RESULTS ST Test performed on Jan 19, 2020 08:45 LDH (Total) 212 U/L Magnesium 2.0 mg/dL Phosphorus 4.4 mg/dL Uric Acid 7.9 mg/dL Manual Segs % 22 % Manual Bands % 32.0 % Manual Lymphs % 20 % Atypical Lymphs % 3.0 % Total Cells Counted 100 Manual Monos % 9.0 % Manual Eos % 7 % Manual Basos % 2.0 % Metamyelocytes % 5.0 % Microcytosis 1+ Platelet Estimate Normal Manual Segs Abs 1.1 10/cmm Manual Bands Abs 1.6 10 3/cmm Manual Neutrophils Abs 2.6 10 3/cmm Manual Monocytes Abs 0.4 10 3/cmm Manual Eosinophils Abs 0.3 10 3/cmm Manual Basophils Abs 0.1 10 3/cmm Test performed on Dec 29, 2019 13:32 Anti-D Negative Blood Type ON Antibody Screen (Gel) NEGATIVE Test performed on Dec 06, 2019 14:35 IgG 1211 mg/dL IgA 104 mg/dL IgM 52 mg/dL Physical Exam: Constitutional Normal - Alert, oriented, no acute distress-obviously does not feel well. Skin pale/pink, warm and dry. Head Normal - Normocephalic; atraumatic. Eyes Normal - Conjunctivae and sclerae are clear and without icterus. Pupils are reactive and equal. Neck Normal - Supple without masses or thyromegaly. No jugular venous distension. Respiratory Normal - Lungs are clear to auscultation without rhonchi or wheezing. Cardiovascular Normal - Regular rate and rhythm of heart without murmurs,clicks, gallops or rubs. Chest Abnormal - Left subclavian PowerPort site is unremarkable. Abdomen Normal - Non-tender, non-distended, no masses or ascites. Good bowel sounds noted in all quads. No guarding or rebound tenderness. No pulsatile masses. Back/Spine Normal - Non-tender to palpation. Extremities Normal - No visible deformities, no cyanosis, clubbing or edema. Musculoskeletal Normal - No tenderness or swelling, normal range of motion without obvious weakness. Integumentary Normal - No rashes or lesions. Neurologic Normal - No sensory or motor deficits, normal cerebellar function, normal gait. Psychiatric Normal - Alert and oriented times three. Coherent speech. Verbalizes understanding of our discussions today. Signed By: BARRY Godfrey, AOTROY Mclean MD <<Signature on File>>
[2020-01-23] MEDS: sodium chloride 0.9% 1,000 ML 999 ML IV (10:15)
[2020-01-23 10:50] LABS: Basophils # 0.1 10^3/uL (0.0-0.1); Basophils % 1.3 %; Eosinophils % 0.3 %; Hematocrit 26.8 % (42.0-52.0); Hemoglobin 8.1 g/dL (11.7-16.6); Lymphocytes # 0.9 10^3/uL (0.8-4.8); Lymphocytes % 22.7 %; Mean Corpuscular HGB Conc 30.2 g/dL (30.0-36.0); Mean Corpuscular Hemoglobin 27.8 pg (28.0-34.0); Mean Corpuscular Volume 92.1 fL (80-94); Mean Platelet Volume 8.8 fL (7.4-10.4); Monocytes # 0.6 10^3/uL (0.2-0.9); Monocytes % 15.8 %; Neutrophils # 2.27 10^3/uL (1.8-7.7); Neutrophils % 58.6 %; Nucleated Red Blood Cells % 0 %; Platelet Count 218 10^3/cmm (130-400); Red Blood Count 2.91 10^6/uL (4.1-5.3); Red Cell Distribution Width 16.4 % (12.1-15.1); White Blood Count 3.9 10^3/uL (4.0-10.0)
[2020-01-23 11:08] LABS: Alanine Aminotransferase 19 U/L (0-41); Albumin Level 2.8 g/dL (3.5-5.2); Alkaline Phosphatase 130 IU/L (40-130); Anion Gap 16.6 (5-19); Aspartate Amino Transferase 28 U/L (0-40); Blood Urea Nitrogen 58 mg/dL (6-20); Calcium 8.5 mg/dL (8.5-10.5); Carbon Dioxide 21 mmol/L (22-29); Chloride 104 mmol/L (98-107); Globulin 2.3 g/dL (1.3-4.6); Glomerular Filtration Rate 28.7 mL/min (90-130); Glucose 91 mg/dL (65-115); Osmolality Calculated 300 mOsm/kg (285-295); Potassium 4.6 mmol/L (3.5-5.1); Sodium 137 mmol/L (136-145); Total Bilirubin 0.3 mg/dL (0.15-1.2); Total Protein 5.1 g/dL (6.6-8.7)
[2020-01-24] VITALS (10 sets, daily range): BP systolic 98–104; BP diastolic 59–75; PULSE 66–85; RESP 16–18; TEMP 36.6–36.9; O2SAT 95–99
[2020-01-24] MEDS: acetaminophen 325 mg Tablet 650 MG PO (09:10)
[2020-01-24] MEDS: diphenhydrAMINE 25 mg Capsule PO (09:10)
[2020-01-24] MEDS: sodium chloride 0.9% 500 ML IV (09:10)
[2020-01-25] MEDS: sodium chloride 0.9% 1,000 mL Bolus 999 ML IV (11:00)
[2020-01-26 09:16] LABS: Basophils % 1.1 %; Hematocrit 30.4 % (42.0-52.0); Hemoglobin 9.4 g/dL (11.7-16.6); Lymphocytes # 0.5 10^3/uL (0.8-4.8); Lymphocytes % 19.9 %; Mean Corpuscular HGB Conc 30.9 g/dL (30.0-36.0); Mean Corpuscular Hemoglobin 27.8 pg (28.0-34.0); Mean Corpuscular Volume 89.9 fL (80-94); Mean Platelet Volume 8.8 fL (7.4-10.4); Monocytes # 0.4 10^3/uL (0.2-0.9); Neutrophils # 1.66 10^3/uL (1.8-7.7); Neutrophils % 62.5 %; Nucleated Red Blood Cells % 0 %; Platelet Count 173 10^3/cmm (130-400); Red Blood Count 3.38 10^6/uL (4.1-5.3); Red Cell Distribution Width 16.4 % (12.1-15.1); White Blood Count 2.7 10^3/uL (4.0-10.0)
[2020-01-26 09:33] LABS: Alanine Aminotransferase 16 U/L (0-41); Albumin Level 2.7 g/dL (3.5-5.2); Alkaline Phosphatase 114 IU/L (40-130); Anion Gap 13.3 (5-19); Aspartate Amino Transferase 19 U/L (0-40); Blood Urea Nitrogen 36 mg/dL (6-20); Carbon Dioxide 22 mmol/L (22-29); Chloride 103 mmol/L (98-107); Glomerular Filtration Rate 45.8 mL/min (90-130); Glucose 104 mg/dL (65-115); Osmolality Calculated 287 mOsm/kg (285-295); Potassium 4.3 mmol/L (3.5-5.1); Sodium 134 mmol/L (136-145); Total Bilirubin 0.3 mg/dL (0.15-1.2); Total Protein 4.7 g/dL (6.6-8.7)
[2020-01-26] MEDS: sodium chloride 0.9% 1,000 ML 999 ML IV (09:56)
[2020-01-30] MEDS: sodium chloride 0.9% 500 ML 999 ML IV (09:15)
[2020-01-30 10:00] LABS: Basophils % 1.6 %; Eosinophils % 0.5 %; Hemoglobin 8.9 g/dL (11.7-16.6); Lymphocytes # 0.4 10^3/uL (0.8-4.8); Lymphocytes % 20.8 %; Mean Corpuscular HGB Conc 30.7 g/dL (30.0-36.0); Mean Corpuscular Hemoglobin 28.4 pg (28.0-34.0); Mean Corpuscular Volume 92.7 fL (80-94); Monocytes # 0.3 10^3/uL (0.2-0.9); Monocytes % 16.7 %; Neutrophils # 1.13 10^3/uL (1.8-7.7); Neutrophils % 58.8 %; Nucleated Red Blood Cells % 0 %; Platelet Count 170 10^3/cmm (130-400); Red Blood Count 3.13 10^6/uL (4.1-5.3); Red Cell Distribution Width 17.5 % (12.1-15.1); White Blood Count 1.9 10^3/uL (4.0-10.0)
[2020-01-30 10:20] LABS: Alanine Aminotransferase 15 U/L (0-41); Albumin Level 2.8 g/dL (3.5-5.2); Alkaline Phosphatase 89 IU/L (40-130); Anion Gap 14.2 (5-19); Aspartate Amino Transferase 18 U/L (0-40); Blood Urea Nitrogen 31 mg/dL (6-20); Carbon Dioxide 24 mmol/L (22-29); Chloride 103 mmol/L (98-107); Globulin 1.9 g/dL (1.3-4.6); Glomerular Filtration Rate 53.4 mL/min (90-130); Glucose 102 mg/dL (65-115); Osmolality Calculated 291 mOsm/kg (285-295); Potassium 4.2 mmol/L (3.5-5.1); Sodium 137 mmol/L (136-145); Total Bilirubin 0.4 mg/dL (0.15-1.2); Total Protein 4.7 g/dL (6.6-8.7)
[2020-01-30] MEDS: diphenhydrAMINE 50 mg/mL SDV 1mL 25 MG IVP (11:00)
[2020-01-30] MEDS: acetaminophen 325 mg Tablet 650 MG PO (11:00)
[2020-01-30] MEDS: palonosetron 0.25 mg/5 mL SDV IV (11:24)
[2020-01-30] MEDS: sodium chloride 0.9% 250 ML 75 ML IV (11:45)
[2020-01-30] MEDS: pegfilgrastim 6 mg/0.6 mL Kit (onpro) SUBCUT (16:55)
[2020-02-08] VITALS (9 sets, daily range): BP systolic 96–102; BP diastolic 56–63; PULSE 77–84; RESP 16; TEMP 36.6–37.1; O2SAT 93–97
[2020-02-08 08:52] LABS: Basophils % 0.4 %; Eosinophils % 1.2 %; Hematocrit 24.6 % (42.0-52.0); Hemoglobin 7.5 g/dL (11.7-16.6); Lymphocytes # 0.8 10^3/uL (0.8-4.8); Lymphocytes % 32.4 %; Mean Corpuscular HGB Conc 30.5 g/dL (30.0-36.0); Mean Corpuscular Hemoglobin 28.5 pg (28.0-34.0); Mean Corpuscular Volume 93.5 fL (80-94); Mean Platelet Volume 9.3 fL (7.4-10.4); Monocytes # 0.1 10^3/uL (0.2-0.9); Monocytes % 4.9 %; Neutrophils # 1.44 10^3/uL (1.8-7.7); Neutrophils % 59.1 %; Nucleated Red Blood Cells % 0 %; Platelet Count 151 10^3/cmm (130-400); Red Blood Count 2.63 10^6/uL (4.1-5.3); Red Cell Distribution Width 17.6 % (12.1-15.1); White Blood Count 2.4 10^3/uL (4.0-10.0)
[2020-02-08] MEDS: acetaminophen 325 mg Tablet 650 MG PO (09:20)
[2020-02-08] MEDS: sodium chloride 0.9% 250 ML 999 ML IV (09:20)
[2020-02-08] MEDS: diphenhydrAMINE 25 mg Capsule PO (09:20)
[2020-02-08 09:31] LABS: Alanine Aminotransferase 14 U/L (0-41); Albumin Level 2.6 g/dL (3.5-5.2); Alkaline Phosphatase 101 IU/L (40-130); Anion Gap 12.7 (5-19); Aspartate Amino Transferase 14 U/L (0-40); Blood Urea Nitrogen 20 mg/dL (6-20); Calcium 7.9 mg/dL (8.5-10.5); Carbon Dioxide 28 mmol/L (22-29); Chloride 100 mmol/L (98-107); Globulin 2.2 g/dL (1.3-4.6); Glomerular Filtration Rate 70.6 mL/min (90-130); Glucose 90 mg/dL (65-115); Osmolality Calculated 286 mOsm/kg (285-295); Potassium 3.7 mmol/L (3.5-5.1); Sodium 137 mmol/L (136-145); Total Bilirubin 0.4 mg/dL (0.15-1.2); Total Protein 4.8 g/dL (6.6-8.7)
[2020-02-08] MEDS: FUROsemide 10 mg/mL SDV 2mL 20 MG IV (11:50)
--- NOTE | 2020-02-08 13:40 | XR_ITS ---
WS: [id number] Exam: XR chest 2V* [id number] Date/Time of Exam: 02/08/2020 2:23 PM Reason For Exam: BASELINE-PLEURITIC CHEST PAIN The lungs are clear and fully expanded. Normal cardiomediastinal structures and bony elements. A left subclavian port is in place ending in the lower one third of the SVC. XR/XR chest 2V* [id number] IMPRESSION: 1. No acute cardiopulmonary finding. 2. Left subclavian port in satisfactory position.
--- NOTE | 2020-02-08 13:40 | US_ITS ---
WS: [id number] ULTRASOUND ABDOMEN CLINICAL INFORMATION: LYMPHOMA COMPARISON: None. FINDINGS: Liver Size: Enlarged Craniocaudal length: 22.4 cm. Echogenicity: Normal. Surface nodularity: None. Mass (size and location): None. Bile ducts Intrahepatic ducts: Normal. Common bile duct diameter: 0.6 cm. Gallbladder is contracted Cholelithiasis Gallstones: Present Gallbladder sludge: Present Gallbladder wall thickening: None. Pericholecystic fluid: None. Sonographic Kaur sign: Absent. Pancreas Normal as visualized. Spleen Splenomegaly: Present Craniocaudal length: 17.2 cm. Right renal cyst measuring 2.9 x 2.8 cm Hydronephrosis: None. Size: 12.2 cm x 6.0 cm x 4.4 cm Left kidney: Normal. Hydronephrosis: None. Size: 12.3 cm x 6.7 cm x 6.4 cm. Abdominal aorta and IVC Visualized portions are normal. Small amount of perihepatic fluid. Small right pleural effusion. US/US abdomen complete* [id number] IMPRESSION: 1. Hepatomegaly and splenomegaly. No intrahepatic biliary ductal dilatation. 2. Marked splenomegaly consistent with lymphomatous infiltration. This is unch anged from previous. 3. Cholelithiasis with gallbladder sludge. 4. No hydronephrosis in either kidney. Incidental right renal cyst. 5. Kidneys demonstrate normal echogenicity today.
--- NOTE | 2020-02-08 16:02 | ONC FU_ITS ---
Dr. Mclean follow up note Patient: Zhen Reardon Unit #: [id number]: [id number] Dicatated By: Marci Mclean M.D.Date of Visit:Feb 08, 2020 Onc Med Follow-up/Prog Note History of Present Illness: Mr. Reardon is a 49-year-old gentleman with newly diagnosed grade 3A follicular lymphoma. He had a right posterior triangle cervical lymph node biopsy done on November 09, 2019. As per patient, he was in his usual health until about 3 months ago when he started having dry cough and subsequently started feeling weak and tired. That was followed by night sweats, weight loss and generalized body aches and pain requiring Percocet. Mr Reardon went to see his primary care physician and a CT scan of chest/abdomen/pelvis was ordered. The CTs were obtained on November 01, 2019 and reported bulky lymphadenopathy in left axilla, upper anterior and middle mediastinum and also right axillary lymph node involvement. His subcarinal lymph node measures up to 5.1 x 2.6 cm and left axillary lymph node measures up to 4 x 3.7 cm and right axillary lymph node 4.1 x 1.5 cm and numerous enlarged internal mammary chain lymph nodes, lung field no abnormality seen no bony destruction seen. CT scan of abdomen and pelvis showed extensive intra-abdominal lymphadenopathy with massive splenomegaly size about 22 cm, and extensive retroperitoneal, mesenteric, portal adenopathy largest node is in the lindsay hepatis measuring 8.1 x 5.3 x 6.4 cm and numerous bulky masses are observed above this level in periaortic paracaval retroperitoneum and throughout both iliac chains and obturator chains in the lower pelvis no bony lytic lesions seen. No free air seen. He was referred to surgery for cervical lymph node biopsy which was done on November 09, 2019 and the final pathology report came back follicular lymphoma, grade 3A, (more than 15 centroblast per high-power field)Immunohistochemistry positive for CD20, PAX 5, CD10, BCL-2, BCL 6 with partial and weakly positive. And Ki-67 was 35 to 40%, MUM1 positive and focus which is partially lacking BCL-2, as per pathology, signifies a higher-grade and consistent with grade 3A. Mr Reardon also had significant B symptoms drenching sweating, weight loss more than 10 pounds in the last couple of months despite of good appetite but no fever- probably masked by Tylenol in Percocet. Patient denies smoking or alcohol use. No family history of lymphoma or blood disorder. Mr Reardon received 4 units of packed RBC on December 06, 2019, as per patient his hemoglobin improved to 7.3 g from 5.3 g after 3 units and then 1 more unit was given with that his hemoglobin improved to 8.3 g. Echocardiogram done on December 06, 2019 showed ejection fraction 65% CT PET scan was done on December 24, 2019. The PET CT reported widespread FDG positive lymphoma from the head and neck to the pelvis; splenic with lymphomatoud infiltration; bilateral pleural effusions with free abdominal fluid present; widespread marrow uptake; this may be reactive, although malignancy infiltration cannot be excluded; malignant left upper lobe pleural implant. Mr. Reardon was referred to Dr. Mclean for treatment. He did have port placement of left subclavian vein PowerPort Dr. Contreras on 12/19/2019. He has been offered treatment with R-CHOP but will start Rituxan the second cycle. Mr. Reardon is here today for follow-up. He started his first cycle of CHOP on 12/29/2019. Rituxan was not given with the first CHOP treatment. He is due for cycle 2 with the plan to initiate the Rituxan. Mr. Reardon was admitted to [facility] on 01/12/2020 with a hemoglobin of 5.9. He received 3 units of packed red blood cells and his hemoglobin on 01 12 was 8.4. He had also been neutropenic and was on reverse isolation and empiric cefepime. He ultimately signed out AMA on 01/13/2020 as he is states I just cannot sit around doing nothing anymore . He states that he did not feel like anything is being down at that point so he went had and went home. He had abdominal CT on 01/12/2020 without contrast. Reported mild hepatomegaly but no intrahepatic biliary ductal dilatation. Marked splenomegaly consistent with lumbar Aubrey infiltration. Marked diffuse abdominal and pelvic lymphadenopathy described above consistent with lymphoma. Bulky lymph nodes. Gallbladder is contracted with a small amount of sludge or faint calculi. This can be followed up with ultrasound. Moderate right and small left pleural effusions with subsegmental atelectasis to the lung bases. Diffuse wall and this area with diffuse mesenteric edema. Small amount of perihepatic and perisplenic ascites. Small amount of free fluid in the pelvis. The lymphadenopathy was unchanged since the recent PET/CT . Patient received second cycle of chemotherapy with R-CHOP on January 30, 2020, follow-up chest x-ray done on February 08, 2020 showed no acute cardiopulmonary finding, no pleural effusion seen Came for follow-up, complaining of generalized weakness and fatigue and dyspnea on exertion but no melena or hematochezia, no jaundice, no hemoptysis or hematemesis, no abdominal pain, no shortness of breath at rest, no night sweats, no abdominal fullness but some discomfort from coughing which has resolved now Medications: Allopurinol 1 Tablet (of 100 mg) Oral b.i.d., Ferrous Sulfate 1 Tablet (of 325 (65 fe) mg) Oral b.i.d., HYDROcodone-Acetaminophen 1 Tablet (of 5-325 mg) Oral b.i.d., Levothyroxine Sodium 1 Tablet (of 25 mcg) Oral daily Allergies: No Known Allergies. Review of Systems: Constitutional - Appetite is good but weight is decreasing. No fever. Positive for night sweats. No hot flashes. Energy level is poor, ENMT - No sinus congestion/drainage. No mouth sores. No sore throat or difficulty swallowing, Hematologic/Lymphatic - Positive for easy bruising and bleeding, Respiratory - Positive for shortness of breath and cough. No pleuritic pain or hemoptysis, Cardiovascular - No angina pain. No palpitations, Gastrointestinal - No nausea or vomiting. No heartburn or acid reflux. No diarrhea. Positive for constipation. No blood in the stool or black stools, Genitourinary (M) - No dysuria or hematuria. No urinary frequency. No urgency or incontinence, Musculoskeletal - No joint or bone pain, Neurologic - No headache or dizziness. No numbness or tingling. No other focal neurologic symptoms, Psychiatric - No anxiety or depression. No insomnia. Vital Signs: Performed on Feb 08, 2020 10:01 Height - 62.00 in Temperature - 98.7 F Pulse - 77 /min Respiration - 16 /min BP - 93/56 mm(hg) O2 Sat - 97 % Pain - 3 Performance Status: 3 - Capable of only limited self-care, confined to bed or chair more than 50% of waking hours. (ECOG) Physical Examination: ENMT - No mouth sores, no thrush, no jaundice, Respiratory - Lungs are clear to auscultation, Cardiovascular - Regular rate and rhythm of heart, Abdomen - Soft, bowel sounds present, Extremities - 1+ edema. Lab/Imaging: Test performed on Jan 30, 2020 09:25 Sodium 137 mmol/L Potassium 4.2 mmol/L Chloride 103 mmol/L CO2 24 mmol/L Anion Gap 14.2 BUN 31 mg/dL Creatinine 1.4 mg/dL Cr Clearance (Est) 76.2600 mL/min eGFR 53.4 mL/min Glucose 102 mg/dL Osmolality - Calculated 291 mOsm/kg Calcium 8.0 mg/dL Protein, Total 4.7 g/dL Albumin 2.8 g/dL Globulin 1.9 g/dL Bilirubin, Total 0.4 mg/dL ALT (SGPT) 15 U/L AST (SGOT) 18 U/L Alkaline Phosphatase 89 IU/L WBC 1.9 10 3/uL RBC 3.13 10 6/uL HGB 8.9 g/dL HCT 29.0 % MCV 92.7 fL MCH 28.4 pg MCHC 30.7 g/dL RDW 17.5 % Platelet Count 170 10 3/cmm MPV 9.0 fL Neutrophils 1.13 10 3/uL Lymphocytes 0.4 10 3/uL Monocytes 0.3 10 3/uL Eosinophils 0.0 10 3/uL Basophils 0.0 10 3/uL Neutrophil % 58.8 % Lymphocyte % 20.8 % Monocyte % 16.7 % Eosinophil % 0.5 % Basophils % 1.6 % NRBC % 0 % Test performed on Jan 23, 2020 10:12 Irradiated Leuko Red RBC [id number] ON RCLRI XM COMPATIBLE Anti-D Negative Blood Type ON Antibody Screen (Gel) NEGATIVE Test performed on Jan 20, 2020 09:00 CBC Slide Review Slide Review Perform SLIDE REVIEW AGREES WITH AUTOMATED RESULTS ST Test performed on Jan 19, 2020 08:45 LDH (Total) 212 U/L Magnesium 2.0 mg/dL Phosphorus 4.4 mg/dL Uric Acid 7.9 mg/dL Manual Segs % 22 % Manual Bands % 32.0 % Manual Lymphs % 20 % Atypical Lymphs % 3.0 % Total Cells Counted 100 Manual Monos % 9.0 % Manual Eos % 7 % Manual Basos % 2.0 % Metamyelocytes % 5.0 % Microcytosis 1+ Platelet Estimate Normal Manual Segs Abs 1.1 10/cmm Manual Bands Abs 1.6 10 3/cmm Manual Neutrophils Abs 2.6 10 3/cmm Manual Monocytes Abs 0.4 10 3/cmm Manual Eosinophils Abs 0.3 10 3/cmm Manual Basophils Abs 0.1 10 3/cmm Test performed on Dec 06, 2019 14:35 IgG 1211 mg/dL IgA 104 mg/dL IgM 52 mg/dL Impression: Follicular lymphoma grade 3A per right posterior triangle cervical lymph node biopsy done on November 09, 2019, 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 Ki-67 proliferation index 30 to 40% and MUM1, positive and focus which is partially lacking BCL-2, as per pathology signifies a high-grade and consistency with grade 3A CT scan of chest abdomen pelvis done on November 01, 2019 showed extensive, bulky bilateral axillary lymphadenopathy left axillary lymph node 4 x 3.7 cm right axillary lymph node 4.1 x 1.5 cm and middle mediastinum and anterior mediastinal lymphadenopathy, subcarinal lymph node 5.1 x 2.6 cm and numerous enlarged internal mammary chain lymph nodes and extensive retroperitoneal para-aortic, paracaval lymphadenopathy and largest mass 8.1 x 5.3 x 6.4 cm in the lindsay hepatis posterior to the pancreatic head and anterior to inferior vena cava and numerous bulky masses are observed above this level in the lindsay, throughout the periaortic and paracaval, retroperitoneal and both iliac chain and obturator chains on.pelvis. But no bone abnormality seen and massive splenomegaly size were 22 cm., Clinically, high risk, bulky disease, Anemia, on oral iron per PMD. Because of persistent and progressive anemia, decided to proceed with systemic chemotherapy with R-CHOP, his echocardiogram showed ejection fraction 65%, Plan: Discussed with patient regarding his labs white blood count 2.4 hemoglobin 7.5 hematocrit 24.6 platelets 151,000 ANC 1440 CMP within normal limits including creatinine Clinically, patient is doing reasonably well now symptomatic due to progressive anemia, no evidence of gross bleeding or hemolysis, at this point will consider 2 units of irradiated packed RBCs As his CT scan of abdomen done on January 12, 2020 showed moderate right pleural effusion small left pleural effusion and hepatosplenomegaly and intra-abdominal lymphadenopathy. His repeat chest x-ray after second cycle of chemotherapy done on January 30, 2020 showed no evidence of pleural effusion. And abdominal sonogram is pending. Patient will return to clinic in 1 week with CBC CMP Signed By: Marci Mclean M.D. <<Signature on File>>
== END 2020-02-09 23:59 | disposition home or self-care (01) ==
LOC: ONCMED 13:30
PROVIDERS: Internal Medicine Medical Oncology; Nurse Practitioner; PCP Nurse Practitioner Family; Visit Provider Internal Medicine Hematology & Oncology
DX: Z51.12 Encounter for antineoplastic immunotherapy (principal); Z51.11 Encounter for antineoplastic chemotherapy; C82.28 Follicular lymphoma grade III, unspecified, lymph nodes of multiple sites; R79.89 Other specified abnormal findings of blood chemistry; N17.9 Acute kidney failure, unspecified; D63.0 Anemia in neoplastic disease; R07.81 Pleurodynia; J90 Pleural effusion, not elsewhere classified; R16.2 Hepatomegaly with splenomegaly, not elsewhere classified; Z79.899 Other long term (current) drug therapy
CPT/HCPCS: 36430; 36591; 71046; 76700; 76770; 76857; 80053; 82565; 83615; 83735; 84100; 84550; 85007; 85025; 86850; 86900; 86920; 96360; 96361; 96367; 96372; 96375; 96411; 96413; 96415; 96417; 99214; J1100; J1200; J1453; J2469; J2505; J7030; J7040; J7050; J9000; J9070; J9312; J9370; P9040

== ENCOUNTER 2020-03-08 05:35 | Outpatient (RCR) | payer SELFPAY ==
[2020-02-22 11:55] LABS: Basophils # 0.1 10^3/uL (0.0-0.1); Basophils % 0.6 %; Eosinophils # 0.1 10^3/uL (0.0-0.8); Hematocrit 28.3 % (42.0-52.0); Hemoglobin 8.8 g/dL (11.7-16.6); Lymphocytes # 2.2 10^3/uL (0.8-4.8); Lymphocytes % 17.7 %; Mean Corpuscular HGB Conc 31.1 g/dL (30.0-36.0); Mean Corpuscular Hemoglobin 29.3 pg (28.0-34.0); Mean Corpuscular Volume 94.3 fL (80-94); Mean Platelet Volume 8.5 fL (7.4-10.4); Monocytes # 1.3 10^3/uL (0.2-0.9); Monocytes % 10.7 %; Neutrophils # 8.51 10^3/uL (1.8-7.7); Neutrophils % 68.7 %; Nucleated Red Blood Cells % 0 %; Platelet Count 359 10^3/cmm (130-400); Red Cell Distribution Width 17.2 % (12.1-15.1); White Blood Count 12.4 10^3/uL (4.0-10.0)
[2020-02-22 12:37] LABS: Alanine Aminotransferase 7 U/L (0-41); Albumin Level 3.1 g/dL (3.5-5.2); Alkaline Phosphatase 109 IU/L (40-130); Anion Gap 15.1 (5-19); Aspartate Amino Transferase 12 U/L (0-40); Blood Urea Nitrogen 23 mg/dL (6-20); Calcium 8.9 mg/dL (8.5-10.5); Carbon Dioxide 27 mmol/L (22-29); Chloride 101 mmol/L (98-107); Globulin 2.5 g/dL (1.3-4.6); Glomerular Filtration Rate 58.2 mL/min (90-130); Glucose 96 mg/dL (65-115); Osmolality Calculated 292 mOsm/kg (285-295); Potassium 4.1 mmol/L (3.5-5.1); Sodium 139 mmol/L (136-145); Total Bilirubin 0.2 mg/dL (0.15-1.2); Total Protein 5.6 g/dL (6.6-8.7)
[2020-02-23] MEDS: sodium chloride 0.9% 1,000 ML 100 ML IV (09:05)
[2020-02-23] MEDS: acetaminophen 325 mg Tablet 650 MG PO (09:05)
[2020-02-23] MEDS: diphenhydrAMINE 50 mg/mL SDV 1mL 25 MG IV (09:05)
[2020-02-23] MEDS: palonosetron 0.25 mg/5 mL SDV IV (09:19)
[2020-02-23] MEDS: pegfilgrastim 6 mg/0.6 mL Kit (onpro) SUBCUT (14:55)
--- NOTE | 2020-02-24 17:39 | ONC FU_ITS ---
798[ [facility] Patient Note Patient: Zhen Reardon Unit #: [id number]: [id number] Dictated By: Chris GodfreyDate of Visit: Feb 22, 2020 Onc MED Follow-Up/Prog Note Chief Complaint: Follicular lymphoma History of Present Illness: Mr. Reardon is a 49-year-old gentleman with newly diagnosed grade 3A follicular lymphoma. He had a right posterior triangle cervical lymph node biopsy done on November 09, 2019. As per patient, he was in his usual health until about 3 months ago when he started having dry cough and subsequently started feeling weak and tired. That was followed by night sweats, weight loss and generalized body aches and pain requiring Percocet. Mr Reardon went to see his primary care physician and a CT scan of chest/abdomen/pelvis was ordered. The CTs were obtained on November 01, 2019 and reported bulky lymphadenopathy in left axilla, upper anterior and middle mediastinum and also right axillary lymph node involvement. His subcarinal lymph node measures up to 5.1 x 2.6 cm and left axillary lymph node measures up to 4 x 3.7 cm and right axillary lymph node 4.1 x 1.5 cm and numerous enlarged internal mammary chain lymph nodes, lung field no abnormality seen no bony destruction seen. CT scan of abdomen and pelvis showed extensive intra-abdominal lymphadenopathy with massive splenomegaly size about 22 cm, and extensive retroperitoneal, mesenteric, portal adenopathy largest node is in the lindsay hepatis measuring 8.1 x 5.3 x 6.4 cm and numerous bulky masses are observed above this level in periaortic paracaval retroperitoneum and throughout both iliac chains and obturator chains in the lower pelvis no bony lytic lesions seen. No free air seen. He was referred to surgery for cervical lymph node biopsy which was done on November 09, 2019 and the final pathology report came back follicular lymphoma, grade 3A, (more than 15 centroblast per high-power field)Immunohistochemistry positive for CD20, PAX 5, CD10, BCL-2, BCL 6 with partial and weakly positive. And Ki-67 was 35 to 40%, MUM1 positive and focus which is partially lacking BCL-2, as per pathology, signifies a higher-grade and consistent with grade 3A. Mr Reardon also had significant B symptoms drenching sweating, weight loss more than 10 pounds in the last couple of months despite of good appetite but no fever- probably masked by Tylenol in Percocet. Patient denies smoking or alcohol use. No family history of lymphoma or blood disorder. Mr Reardon received 4 units of packed RBC on December 06, 2019, as per patient his hemoglobin improved to 7.3 g from 5.3 g after 3 units and then 1 more unit was given with that his hemoglobin improved to 8.3 g. Echocardiogram done on December 06, 2019 showed ejection fraction 65% CT PET scan was done on December 24, 2019. The PET CT reported widespread FDG positive lymphoma from the head and neck to the pelvis; splenic with lymphomatoud infiltration; bilateral pleural effusions with free abdominal fluid present; widespread marrow uptake; this may be reactive, although malignancy infiltration cannot be excluded; malignant left upper lobe pleural implant. Mr. Reardon was referred to Dr. Mclean for treatment. He did have port placement of left subclavian vein PowerPort Dr. Contreras on 12/19/2019. He has been offered treatment with R-CHOP but will start Rituxan the second cycle. Mr. Reardon is here today for follow-up. He started his first cycle of CHOP on 12/29/2019. Rituxan was not given with the first CHOP treatment. He is due for cycle 2 with the plan to initiate the Rituxan. Mr. Reardon was admitted to [facility] on 01/12/2020 with a hemoglobin of 5.9. He received 3 units of packed red blood cells and his hemoglobin on 01 12 was 8.4. He had also been neutropenic and was on reverse isolation and empiric cefepime. He ultimately signed out AMA on 01/13/2020 as he is states I just cannot sit around doing nothing anymore . He states that he did not feel like anything is being down at that point so he went had and went home. He had abdominal CT on 01/12/2020 without contrast. Reported mild hepatomegaly but no intrahepatic biliary ductal dilatation. Marked splenomegaly consistent with lumbar Aubrey infiltration. Marked diffuse abdominal and pelvic lymphadenopathy described above consistent with lymphoma. Bulky lymph nodes. Gallbladder is contracted with a small amount of sludge or faint calculi. This can be followed up with ultrasound. Moderate right and small left pleural effusions with subsegmental atelectasis to the lung bases. Diffuse wall and this area with diffuse mesenteric edema. Small amount of perihepatic and perisplenic ascites. Small amount of free fluid in the pelvis. The lymphadenopathy was unchanged since the recent PET/CT . Patient received second cycle of chemotherapy with R-CHOP on January 30, 2020, follow-up chest x-ray done on February 08, 2020 showed no acute cardiopulmonary finding, no pleural effusion seen Mr. Reardon is here today for follow-up. He is actually due for cycle 3 R-CHOP today. He reports that he did go to [place] yesterday and tolerated the trip well. He states he drove himself and did well. [facility] It was recommended that he proceed with cycle 3 R-CHOP and then do repeat PET/CT. Ms. Reardon is here today for follow-up. Unfortunately his appointment was late in the afternoon and we were unable to administer his R-CHOP at that time however he will return in the morning and will start with his third cycle of R-CHOP. His doses in premeds/post meds will remain the same. He states overall he is feeling better. He states he still wears out pretty easily but does recover with rest. 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 He states he still can do a lot of physical activity yet. He has no new concerns. Denies any fever or chills. ECOG is 1. Past Medical History: Anemia Hypothyroidism Past [facility] History[facility] Allergies: No Known Allergies. Medications: Levothyroxine Sodium 1 Tablet (of 25 mcg) Oral daily Family History: Mr. Reardon's mother is : ovarian cancer. Mr. Reardon's father is . Mr. Reardon's maternal grandmother is : myocardial infarction. His maternal grandfather is . His paternal grandmother is . His paternal grandfather is . Social History: Mr. Reardon is . Mr. Reardon has never smoked. He has no history of drinking. Review Of Symptoms: Constitutional Denies fevers, chills, night sweats, excessive fatigue or weight loss. Tired but stable and is able to do ADLs. Energy is improving. Allergic/Immunologic No reactions. Eyes Denies significant visual changes. No diplopia. No amaurosis. ENMT Denies changes in hearing, sore throat, mouth sores, difficulty or changes in swallowing ability, and/or sinus drainage. Hematologic/Lymphatic Denies easy bruising or bleeding. The patient denies any tender or palpable lymph nodes. Respiratory Denies worsening dyspnea on exertion, chest pain, cough or hemoptysis. Denies orthopnea. Cardiovascular Denies anginal chest pain, palpitations or orthopnea. Gastrointestinal Denies nausea, vomiting, diarrhea, GI bleeding, or constipation. Denies change in bowel habits and/or stool color, no heartburn or early satiety. Genitourinary (M) Denies hematuria, dysuria, increased frequency, urgency, hesitancy or incontinence. Musculoskeletal Denies joint pain, swelling or redness. No decreased range of motion. Integumentary Denies chronic rashes, inflammation, ulcerations or skin changes. Neurologic Denies headache, blurred vision, and no areas of focal weakness or numbness. Gait assisted with walking cane today. No sensory problems. Psychiatric Denies insomnia, depression, renny or mood swings. Vital Signs: Performed on Feb 22, 2020 13:00 Height - 62.00 in Weight - 185.2 lbs (LOW) BSA - 1.85 sq.m BMI - 33.87 (HIGH) Temperature - 97.9 F (LOW) Pulse - 92 /min Respiration - 18 /min BP - 108/67 mm(hg) O2 Sat - 96 % Pain - 0,1 - No physically strenuous activity, but ambulatory and able to carry out light or sedentary work (e.g. office work, light house work). (ECOG) Physical Examination: Constitutional Alert, oriented, no acute distress. Skin pale/pink, warm and dry. Head Normocephalic; atraumatic. Eyes Conjunctivae and sclerae are clear and without icterus. Pupils are reactive and equal. Neck Supple without masses or thyromegaly. No jugular venous distension. Respiratory Lungs are clear to auscultation without rhonchi or wheezing. Cardiovascular Regular rate and rhythm of heart without murmurs,clicks, gallops or rubs. Chest Left subclavian PowerPort site is unremarkable. Abdomen Non-tender, non-distended, no masses or ascites. Good bowel sounds noted in all quads. No guarding or rebound tenderness. No pulsatile masses. Back/Spine Non-tender to palpation. Extremities No visible deformities, no cyanosis, clubbing or edema. Musculoskeletal No tenderness or swelling, normal range of motion without obvious weakness. Integumentary No rashes or lesions. Neurologic No sensory or motor deficits, normal cerebellar function, normal gait. Psychiatric Alert and oriented times three. Coherent speech. Verbalizes understanding of our discussions today. Laboratory:Test performed on Feb 22, 2020 11:25 Sodium 139 mmol/L Potassium 4.1 mmol/L Chloride 101 mmol/L CO2 27 mmol/L Anion Gap 15.1 BUN 23 mg/dL Creatinine 1.3 mg/dL Cr Clearance (Est) 82.1200 mL/min eGFR 58.2 mL/min Glucose 96 mg/dL Osmolality - Calculated 292 mOsm/kg Calcium 8.9 mg/dL Protein, Total 5.6 g/dL Albumin 3.1 g/dL Globulin 2.5 g/dL Bilirubin, Total 0.2 mg/dL ALT (SGPT) 7 U/L AST (SGOT) 12 U/L Alkaline Phosphatase 109 IU/L WBC 12.4 10 3/uL RBC 3.00 10 6/uL HGB 8.8 g/dL HCT 28.3 % MCV 94.3 fL MCH 29.3 pg MCHC 31.1 g/dL RDW 17.2 % Platelet Count 359 10 3/cmm MPV 8.5 fL Neutrophils 8.51 10 3/uL Lymphocytes 2.2 10 3/uL Monocytes 1.3 10 3/uL Eosinophils 0.1 10 3/uL Basophils 0.1 10 3/uL Neutrophil % 68.7 % Lymphocyte % 17.7 % Monocyte % 10.7 % Eosinophil % 1.0 % Basophils % 0.6 % NRBC % 0 % Test performed on Feb 08, 2020 08:30 Irradiated Red Blood Cells [id number] ON RCI XM COMPATIBLE Anti-D Negative Blood Type ON Antibody Screen (Gel) NEGATIVE Test performed on Jan 23, 2020 10:12 Irradiated Leuko Red RBC [id number] ON RCLRI XM COMPATIBLE Test performed on Jan 20, 2020 09:00 CBC Slide Review Slide Review Perform SLIDE REVIEW AGREES WITH AUTOMATED RESULTS ST Test performed on Jan 19, 2020 08:45 LDH (Total) 212 U/L Magnesium 2.0 mg/dL Phosphorus 4.4 mg/dL Uric Acid 7.9 mg/dL Manual Segs % 22 % Manual Bands % 32.0 % Manual Lymphs % 20 % Atypical Lymphs % 3.0 % Total Cells Counted 100 Manual Monos % 9.0 % Manual Eos % 7 % Manual Basos % 2.0 % Metamyelocytes % 5.0 % Microcytosis 1+ Platelet Estimate Normal Manual Segs Abs 1.1 10/cmm Manual Bands Abs 1.6 10 3/cmm Manual Neutrophils Abs 2.6 10 3/cmm Manual Monocytes Abs 0.4 10 3/cmm Manual Eosinophils Abs 0.3 10 3/cmm Manual Basophils Abs 0.1 10 3/cmm Test performed on Dec 06, 2019 14:35 IgG 1211 mg/dL IgA 104 mg/dL IgM 52 mg/dL Impression: Follicular lymphoma grade 3A per right posterior triangle cervical lymph node biopsy done on November 09, 2019, 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 Ki-67 proliferation index 30 to 40% and MUM1, positive and focus which is partially lacking BCL-2, as per pathology signifies a high-grade and consistency with grade 3A CT scan of chest abdomen pelvis done on November 01, 2019 showed extensive, bulky bilateral axillary lymphadenopathy left axillary lymph node 4 x 3.7 cm right axillary lymph node 4.1 x 1.5 cm and middle mediastinum and anterior mediastinal lymphadenopathy, subcarinal lymph node 5.1 x 2.6 cm and numerous enlarged internal mammary chain lymph nodes and extensive retroperitoneal para-aortic, paracaval lymphadenopathy and largest mass 8.1 x 5.3 x 6.4 cm in the lindsay hepatis posterior to the pancreatic head and anterior to inferior vena cava and numerous bulky masses are observed above this level in the lindsay, throughout the periaortic and paracaval, retroperitoneal and both iliac chain and obturator chains on.pelvis. But no bone abnormality seen and massive splenomegaly size were 22 cm., Clinically, high risk, bulky disease, Anemia, on oral iron per PMD. Because of persistent and progressive anemia, decided to proceed with systemic chemotherapy with R-CHOP, his echocardiogram showed ejection fraction 65%, As his CT scan of abdomen done on January 12, 2020 showed moderate right pleural effusion small left pleural effusion and hepatosplenomegaly and intra-abdominal lymphadenopathy. His repeat chest x-ray after second cycle of chemotherapy done on January 30, 2020 showed no evidence of pleural effusion. After consulting with Jonathanr Addy @ [facility]ematology[facility] on 02/21/2020, Mr Reardon has been advised to pursue 1 more cycle of R-CHOP and then restage with followup PET/CT. Plan: PROBLEMS ADDRESSED TODAY 1. Follicular lymphoma A. Proceed with cycle 3 R-CHOP at same doses and Neulasta support. B. Continue aggressive antiemetics due to high risk regimen. C. Labs from today reviewed in detail discussed with Mr. Reardon and a copy was given to him. WBC 12.4, hemoglobin 8.8, platelets 359,000 ANC is 8510. Potassium 4.1 random glucose 96 creatinine 1.3 LFTs are normal. His last transfusion services per our records was on 02/08/2020. D. He will have weekly interim counts for monitoring of his labs between chemotherapy treatments. He will be due for PET/CT prior to his follow-up in 3 weeks. E. Mr. Reardon was instructed to contact us in interim should questions or problems arise. Signed By: Chris Godfrey-, AOP Marci Mclean MD <<Signature on File>>
[2020-03-08 10:15] LABS: Basophils % 0.5 %; Eosinophils # 0.1 10^3/uL (0.0-0.8); Eosinophils % 1.8 %; Hematocrit 27.3 % (42.0-52.0); Hemoglobin 8.6 g/dL (11.7-16.6); Lymphocytes # 1.7 10^3/uL (0.8-4.8); Lymphocytes % 22.4 %; Mean Corpuscular HGB Conc 31.5 g/dL (30.0-36.0); Mean Corpuscular Hemoglobin 30.2 pg (28.0-34.0); Mean Corpuscular Volume 95.8 fL (80-94); Monocytes # 0.7 10^3/uL (0.2-0.9); Monocytes % 9.3 %; Neutrophils # 5.02 10^3/uL (1.8-7.7); Neutrophils % 65.5 %; Nucleated Red Blood Cells % 0 %; Platelet Count 201 10^3/cmm (130-400); Red Blood Count 2.85 10^6/uL (4.1-5.3); Red Cell Distribution Width 17.2 % (12.1-15.1); White Blood Count 7.7 10^3/uL (4.0-10.0)
[2020-03-08 10:43] LABS: Alanine Aminotransferase < 5 U/L (0-41); Albumin Level 3.5 g/dL (3.5-5.2); Alkaline Phosphatase 106 IU/L (40-130); Anion Gap 17.5 (5-19); Aspartate Amino Transferase 9 U/L (0-40); Blood Urea Nitrogen 23 mg/dL (6-20); Calcium 9.4 mg/dL (8.5-10.5); Carbon Dioxide 26 mmol/L (22-29); Chloride 101 mmol/L (98-107); Globulin 2.6 g/dL (1.3-4.6); Glomerular Filtration Rate 58.2 mL/min (90-130); Glucose 100 mg/dL (65-115); Osmolality Calculated 294 mOsm/kg (285-295); Potassium 4.5 mmol/L (3.5-5.1); Sodium 140 mmol/L (136-145); Total Bilirubin 0.2 mg/dL (0.15-1.2); Total Protein 6.1 g/dL (6.6-8.7)
== END 2020-03-11 23:59 | disposition home or self-care (01) ==
LOC: ONCMED 05:35
PROVIDERS: Nurse Practitioner; PCP Nurse Practitioner Family; Visit Provider Internal Medicine Hematology & Oncology
DX: Z51.12 Encounter for antineoplastic immunotherapy (principal); Z51.11 Encounter for antineoplastic chemotherapy; C82.28 Follicular lymphoma grade III, unspecified, lymph nodes of multiple sites; D50.9 Iron deficiency anemia, unspecified; E03.9 Hypothyroidism, unspecified; Z79.899 Other long term (current) drug therapy
CPT/HCPCS: 36591; 80053; 85025; 96361; 96367; 96372; 96375; 96411; 96413; 96415; 96417; 99214; J1100; J1200; J1453; J2469; J2505; J7030; J7040; J9000; J9070; J9312; J9370

== ENCOUNTER 2020-04-04 05:26 | Outpatient (RCR) | payer SELFPAY ==
[2020-03-14] MEDS: sodium chloride 0.9% 1,000 ML 999 ML IV (10:40)
[2020-03-14] MEDS: diphenhydrAMINE 50 mg/mL SDV 1mL 25 MG IV (10:40)
[2020-03-14] MEDS: acetaminophen 325 mg Tablet 650 MG PO (10:45)
[2020-03-14] MEDS: palonosetron 0.25 mg/5 mL SDV IV (10:45)
[2020-03-14] MEDS: fosaprepitant 150 MG in sodium chloride 0.9% 150 ML 300 MG IV (11:00)
--- NOTE | 2020-03-14 11:44 | ONC FU_ITS ---
Dr. Mclean follow up note Patient: Zhen Reardon Unit #: [id number]: 1970 Dicatated By: Marci Mclean M.D.Date of Visit:Mar 14, 2020 Onc Med Follow-up/Prog Note History of Present Illness: Mr. Reardon is a 49-year-old gentleman with newly diagnosed grade 3A follicular lymphoma. He had a right posterior triangle cervical lymph node biopsy done on November 09, 2019. As per patient, he was in his usual health until about 3 months ago when he started having dry cough and subsequently started feeling weak and tired. That was followed by night sweats, weight loss and generalized body aches and pain requiring Percocet. Mr Reardon went to see his primary care physician and a CT scan of chest/abdomen/pelvis was ordered. The CTs were obtained on November 01, 2019 and reported bulky lymphadenopathy in left axilla, upper anterior and middle mediastinum and also right axillary lymph node involvement. His subcarinal lymph node measures up to 5.1 x 2.6 cm and left axillary lymph node measures up to 4 x 3.7 cm and right axillary lymph node 4.1 x 1.5 cm and numerous enlarged internal mammary chain lymph nodes, lung field no abnormality seen no bony destruction seen. CT scan of abdomen and pelvis showed extensive intra-abdominal lymphadenopathy with massive splenomegaly size about 22 cm, and extensive retroperitoneal, mesenteric, portal adenopathy largest node is in the lindsay hepatis measuring 8.1 x 5.3 x 6.4 cm and numerous bulky masses are observed above this level in periaortic paracaval retroperitoneum and throughout both iliac chains and obturator chains in the lower pelvis no bony lytic lesions seen. No free air seen. He was referred to surgery for cervical lymph node biopsy which was done on November 09, 2019 and the final pathology report came back follicular lymphoma, grade 3A, (more than 15 centroblast per high-power field)Immunohistochemistry positive for CD20, PAX 5, CD10, BCL-2, BCL 6 with partial and weakly positive. And Ki-67 was 35 to 40%, MUM1 positive and focus which is partially lacking BCL-2, as per pathology, signifies a higher-grade and consistent with grade 3A. Mr Reardon also had significant B symptoms drenching sweating, weight loss more than 10 pounds in the last couple of months despite of good appetite but no fever- probably masked by Tylenol in Percocet. Patient denies smoking or alcohol use. No family history of lymphoma or blood disorder. Mr Reardon received 4 units of packed RBC on December 06, 2019, as per patient his hemoglobin improved to 7.3 g from 5.3 g after 3 units and then 1 more unit was given with that his hemoglobin improved to 8.3 g. Echocardiogram done on December 06, 2019 showed ejection fraction 65% CT PET scan was done on December 24, 2019. The PET CT reported widespread FDG positive lymphoma from the head and neck to the pelvis; splenic with lymphomatoud infiltration; bilateral pleural effusions with free abdominal fluid present; widespread marrow uptake; this may be reactive, although malignancy infiltration cannot be excluded; malignant left upper lobe pleural implant. Mr. Reardon was referred to us for treatment. He did have port placement of left subclavian vein PowerPort Dr. Contreras on 12/19/2019. He started his first cycle of CHOP on 12/29/2019. Rituxan was not given with the first CHOP treatment. Patient received second cycle of chemotherapy with R-CHOP on January 30, 2020, follow-up chest x-ray done on February 08, 2020 showed no acute cardiopulmonary finding, no pleural effusion seen [facility] It was recommended that he proceed with cycle 3 R-CHOP and then do repeat PET/CT.Follow-up CT PET scan done on March 10, 2020 showed modest improvement in widespread lymphomatous nodes when compared with PET scan done on December 24, 2019, right inguinal lymph node is now 2.6 x 3.5 cm with SUV of 6.3 compared to 3.5 x 4.5 cm with SUV of 9.2 and the left axillary lymph node is 2.7 cm with SUV of 6 compared to 3.9 cm with SUV of 6.3 previously. The bilateral pleural effusion have resolved in the left pleural implant is greatly improved. Abnormal activity in the spleen has normalized and splenomegaly has improved now 15 cm compared to 20 cm previously. Abdominal fluid has seen previously is nearly resolved on the study. Came for follow-up, denies any specific complaint except generalized weakness and fatigue but overall feeling better, no night sweats, no recurrent fever, weight is stable rather improving. No abdominal fullness, as per patient his right inguinal lymph node and left axillary lymph node is shrinking. No more abdominal fullness no more shortness of breath except on exertion. No peripheral numbness. No jaundice. Tolerating R-CHOP well otherwise Medications: Levothyroxine Sodium 1 Tablet (of 25 mcg) Oral daily Allergies: No Known Allergies. Review of Systems: Constitutional - Appetite is good but weight is decreasing. No fever. Positive for night sweats. No hot flashes. Energy level is poor, ENMT - No sinus congestion/drainage. No mouth sores. No sore throat or difficulty swallowing, Hematologic/Lymphatic - Positive for easy bruising and bleeding, Respiratory - Positive for shortness of breath and cough. No pleuritic pain or hemoptysis, Cardiovascular - No angina pain. No palpitations, Gastrointestinal - No nausea or vomiting. No heartburn or acid reflux. No diarrhea. Positive for constipation. No blood in the stool or black stools, Genitourinary (M) - No dysuria or hematuria. No urinary frequency. No urgency or incontinence, Musculoskeletal - No joint or bone pain, Neurologic - No headache or dizziness. No numbness or tingling. No other focal neurologic symptoms, Psychiatric - No anxiety or depression. No insomnia. Vital Signs: Performed on Mar 14, 2020 09:22 Height - 62.00 in Weight - 185.0 lbs (LOW) BSA - 1.85 sq.m BMI - 33.84 (HIGH) Temperature - 98.8 F Pulse - 92 /min Respiration - 20 /min BP - 116/62 mm(hg) O2 Sat - 99 % Pain - 0 Performance Status: 2 - Ambulatory/capable of all self-care, unable to perform any work activities. Up and about more than 50% of waking hours. (ECOG) Physical Examination: ENMT - No mouth sores, no thrush, no jaundice, left axillary lymph node palpable, nontender about 2 cm in size, but smaller in size compared to previous, Respiratory - Lungs are clear to auscultation, Cardiovascular - Regular rate and rhythm of heart, Abdomen - Soft, bowel sounds present, Extremities - No visible edema. Lab/Imaging: Test performed on Feb 22, 2020 11:25 Sodium 139 mmol/L Potassium 4.1 mmol/L Chloride 101 mmol/L CO2 27 mmol/L Anion Gap 15.1 BUN 23 mg/dL Creatinine 1.3 mg/dL Cr Clearance (Est) 82.1200 mL/min eGFR 58.2 mL/min Glucose 96 mg/dL Osmolality - Calculated 292 mOsm/kg Calcium 8.9 mg/dL Protein, Total 5.6 g/dL Albumin 3.1 g/dL Globulin 2.5 g/dL Bilirubin, Total 0.2 mg/dL ALT (SGPT) 7 U/L AST (SGOT) 12 U/L Alkaline Phosphatase 109 IU/L WBC 12.4 10 3/uL RBC 3.00 10 6/uL HGB 8.8 g/dL HCT 28.3 % MCV 94.3 fL MCH 29.3 pg MCHC 31.1 g/dL RDW 17.2 % Platelet Count 359 10 3/cmm MPV 8.5 fL Neutrophils 8.51 10 3/uL Lymphocytes 2.2 10 3/uL Monocytes 1.3 10 3/uL Eosinophils 0.1 10 3/uL Basophils 0.1 10 3/uL Neutrophil % 68.7 % Lymphocyte % 17.7 % Monocyte % 10.7 % Eosinophil % 1.0 % Basophils % 0.6 % NRBC % 0 % Test performed on Feb 08, 2020 08:30 Irradiated Red Blood Cells [id number] ON RCI XM COMPATIBLE Anti-D Negative Blood Type ON Antibody Screen (Gel) NEGATIVE Test performed on Jan 23, 2020 10:12 Irradiated Leuko Red RBC [id number] ON RCLRI XM COMPATIBLE Test performed on Jan 20, 2020 09:00 CBC Slide Review Slide Review Perform SLIDE REVIEW AGREES WITH AUTOMATED RESULTS ST Test performed on Jan 19, 2020 08:45 LDH (Total) 212 U/L Magnesium 2.0 mg/dL Phosphorus 4.4 mg/dL Uric Acid 7.9 mg/dL Manual Segs % 22 % Manual Bands % 32.0 % Manual Lymphs % 20 % Atypical Lymphs % 3.0 % Total Cells Counted 100 Manual Monos % 9.0 % Manual Eos % 7 % Manual Basos % 2.0 % Metamyelocytes % 5.0 % Microcytosis 1+ Platelet Estimate Normal Manual Segs Abs 1.1 10/cmm Manual Bands Abs 1.6 10 3/cmm Manual Neutrophils Abs 2.6 10 3/cmm Manual Monocytes Abs 0.4 10 3/cmm Manual Eosinophils Abs 0.3 10 3/cmm Manual Basophils Abs 0.1 10 3/cmm Test performed on Dec 06, 2019 14:35 IgG 1211 mg/dL IgA 104 mg/dL IgM 52 mg/dL Impression: Follicular lymphoma grade 3A per right posterior triangle cervical lymph node biopsy done on November 09, 2019, 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 Ki-67 proliferation index 30 to 40% and MUM1, positive and focus which is partially lacking BCL-2, as per pathology signifies a high-grade and consistency with grade 3A CT scan of chest abdomen pelvis done on November 01, 2019 showed extensive, bulky bilateral axillary lymphadenopathy left axillary lymph node 4 x 3.7 cm right axillary lymph node 4.1 x 1.5 cm and middle mediastinum and anterior mediastinal lymphadenopathy, subcarinal lymph node 5.1 x 2.6 cm and numerous enlarged internal mammary chain lymph nodes and extensive retroperitoneal para-aortic, paracaval lymphadenopathy and largest mass 8.1 x 5.3 x 6.4 cm in the lindsay hepatis posterior to the pancreatic head and anterior to inferior vena cava and numerous bulky masses are observed above this level in the lindsay, throughout the periaortic and paracaval, retroperitoneal and both iliac chain and obturator chains on.pelvis. But no bone abnormality seen and massive splenomegaly size were 22 cm., Clinically, high risk, bulky disease, Anemia, on oral iron per PMD. Because of persistent and progressive anemia, decided to proceed with systemic chemotherapy with R-CHOP, his echocardiogram showed ejection fraction 65%, As his CT scan of abdomen done on January 12, 2020 showed moderate right pleural effusion small left pleural effusion and hepatosplenomegaly and intra-abdominal lymphadenopathy. His repeat chest x-ray after second cycle of chemotherapy done on January 30, 2020 showed no evidence of pleural effusion. After consulting with Lucita Daly @ [facility] Hematology/Oncology on 02/21/2020, Patient proceeded to complete 3 cycles of R-CHOP followed by CT PET scan on March 10, 2020 which showed modest improvement in widespread lymphomatous lymph nodes and resolution of bilateral pleural effusion and near resolution of ascites and improvement in spleen size now 15 cm compared to 20 cm before Plan: Discussed with patient regarding his labs white blood count 7.7 hemoglobin 8.6 hematocrit 27.3 platelets 201,000 CMP within normal limit except creatinine 1.[address] PET scan which showed modest improvement in widespread lymphadenopathy and resolution of splenic activity and bilateral pleural effusion and near resolution of abdominal fluid. Clinically, patient is doing well, tolerating R-CHOP well but with expected side effects, will proceed with cycle #4 with R-CHOP with Neulasta to prevent chemotherapy-induced neutropenia/leukopenia and then patient return to clinic in 2 weeks, by that time will have his FISH for high-grade lymphoma report available and will also discuss with Dr. Daly at [facility] regarding FISH report as well as CT PET scan report,. Mild to moderate anemia, will continue to monitor if there is a drop in hemoglobin will consider blood transfusion. Return to clinic in 2 weeks with CBC CMP Signed By: Marci Mclean M.D. <<Signature on File>>
[2020-03-14] MEDS: pegfilgrastim 6 mg/0.6 mL Kit (onpro) SUBCUT (16:35)
[2020-04-03 14:44] LABS: Basophils # 0.1 10^3/uL (0.0-0.1); Basophils % 0.5 %; Eosinophils # 0.2 10^3/uL (0.0-0.8); Eosinophils % 2.5 %; Hematocrit 32.1 % (42.0-52.0); Lymphocytes # 2.3 10^3/uL (0.8-4.8); Lymphocytes % 24.3 %; Mean Corpuscular HGB Conc 31.2 g/dL (30.0-36.0); Mean Corpuscular Hemoglobin 29.2 pg (28.0-34.0); Mean Corpuscular Volume 93.9 fL (80-94); Monocytes # 0.8 10^3/uL (0.2-0.9); Monocytes % 8.5 %; Neutrophils # 5.98 10^3/uL (1.8-7.7); Neutrophils % 63.8 %; Nucleated Red Blood Cells % 0 %; Platelet Count 277 10^3/cmm (130-400); Red Blood Count 3.42 10^6/uL (4.1-5.3); Red Cell Distribution Width 15.2 % (12.1-15.1); White Blood Count 9.4 10^3/uL (4.0-10.0)
[2020-04-03 15:41] LABS: Alanine Aminotransferase < 5 U/L (0-41); Albumin Level 3.9 g/dL (3.5-5.2); Alkaline Phosphatase 95 IU/L (40-130); Anion Gap 15.3 (5-19); Aspartate Amino Transferase 9 U/L (0-40); Blood Urea Nitrogen 21 mg/dL (6-20); Calcium 9.2 mg/dL (8.5-10.5); Carbon Dioxide 27 mmol/L (22-29); Chloride 103 mmol/L (98-107); Globulin 2.4 g/dL (1.3-4.6); Glomerular Filtration Rate 63.8 mL/min (90-130); Glucose 83 mg/dL (65-115); Osmolality Calculated 294 mOsm/kg (285-295); Potassium 4.3 mmol/L (3.5-5.1); Sodium 141 mmol/L (136-145); Total Bilirubin 0.2 mg/dL (0.15-1.2); Total Protein 6.3 g/dL (6.6-8.7)
[2020-04-04] MEDS: sodium chloride 0.9% 1,000 ML 100 ML IV (09:20)
[2020-04-04] MEDS: diphenhydrAMINE 50 mg/mL SDV 1mL 25 MG IV (09:25)
[2020-04-04] MEDS: acetaminophen 325 mg Tablet 650 MG PO (09:30)
[2020-04-04] MEDS: palonosetron 0.25 mg/5 mL SDV IV (09:30)
[2020-04-04] MEDS: fosaprepitant 150 MG in sodium chloride 0.9% 150 ML 300 MG IV (09:45)
[2020-04-04] MEDS: pegfilgrastim 6 mg/0.6 mL Kit (onpro) SUBCUT (14:30)
--- NOTE | 2020-04-04 17:18 | ONC FU_ITS ---
Dr. Mclean follow up note Patient: Zhen Reardon Unit #: [id number]: [id number] Dicatated By: Marci Mclean M.D.Date of Visit:Apr 04, 2020 Onc Med Follow-up/Prog Note History of Present Illness: Mr. Reardon is a 49-year-old gentleman with newly diagnosed grade 3A follicular lymphoma. He had a right posterior triangle cervical lymph node biopsy done on November 09, 2019. As per patient, he was in his usual health until about 3 months ago when he started having dry cough and subsequently started feeling weak and tired. That was followed by night sweats, weight loss and generalized body aches and pain requiring Percocet. Mr Reardon went to see his primary care physician and a CT scan of chest/abdomen/pelvis was ordered. The CTs were obtained on November 01, 2019 and reported bulky lymphadenopathy in left axilla, upper anterior and middle mediastinum and also right axillary lymph node involvement. His subcarinal lymph node measures up to 5.1 x 2.6 cm and left axillary lymph node measures up to 4 x 3.7 cm and right axillary lymph node 4.1 x 1.5 cm and numerous enlarged internal mammary chain lymph nodes, lung field no abnormality seen no bony destruction seen. CT scan of abdomen and pelvis showed extensive intra-abdominal lymphadenopathy with massive splenomegaly size about 22 cm, and extensive retroperitoneal, mesenteric, portal adenopathy largest node is in the lindsay hepatis measuring 8.1 x 5.3 x 6.4 cm and numerous bulky masses are observed above this level in periaortic paracaval retroperitoneum and throughout both iliac chains and obturator chains in the lower pelvis no bony lytic lesions seen. No free air seen. He was referred to surgery for cervical lymph node biopsy which was done on November 09, 2019 and the final pathology report came back follicular lymphoma, grade 3A, (more than 15 centroblast per high-power field)Immunohistochemistry positive for CD20, PAX 5, CD10, BCL-2, BCL 6 with partial and weakly positive. And Ki-67 was 35 to 40%, MUM1 positive and focus which is partially lacking BCL-2, as per pathology, signifies a higher-grade and consistent with grade 3A. Mr Reardon also had significant B symptoms drenching sweating, weight loss more than 10 pounds in the last couple of months despite of good appetite but no fever- probably masked by Tylenol in Percocet. Patient denies smoking or alcohol use. No family history of lymphoma or blood disorder. Mr Reardon received 4 units of packed RBC on December 06, 2019, as per patient his hemoglobin improved to 7.3 g from 5.3 g after 3 units and then 1 more unit was given with that his hemoglobin improved to 8.3 g. Echocardiogram done on December 06, 2019 showed ejection fraction 65% CT PET scan was done on December 24, 2019. The PET CT reported widespread FDG positive lymphoma from the head and neck to the pelvis; splenic with lymphomatoud infiltration; bilateral pleural effusions with free abdominal fluid present; widespread marrow uptake; this may be reactive, although malignancy infiltration cannot be excluded; malignant left upper lobe pleural implant. Mr. Reardon was referred to us for treatment. He did have port placement of left subclavian vein PowerPort Dr. Contreras on 12/19/2019. He started his first cycle of CHOP on 12/29/2019. Rituxan was not given with the first CHOP treatment. Patient received second cycle of chemotherapy with R-CHOP on January 30, 2020, follow-up chest x-ray done on February 08, 2020 showed no acute cardiopulmonary finding, no pleural effusion seen [facility] It was recommended that he proceed with cycle 3 R-CHOP and then do repeat PET/CT.Follow-up CT PET scan done on March 10, 2020 showed modest improvement in widespread lymphomatous nodes when compared with PET scan done on December 24, 2019, right inguinal lymph node is now 2.6 x 3.5 cm with SUV of 6.3 compared to 3.5 x 4.5 cm with SUV of 9.2 and the left axillary lymph node is 2.7 cm with SUV of 6 compared to 3.9 cm with SUV of 6.3 previously. The bilateral pleural effusion have resolved in the left pleural implant is greatly improved. Abnormal activity in the spleen has normalized and splenomegaly has improved now 15 cm compared to 20 cm previously. Abdominal fluid has seen previously is nearly resolved on the study. FISH, high-grade lymphoma panel done on 03/22/2020 showed negative for MYC and BCL6 rearrangement and for IGH/BCL-2 fusion but positive for gains of BCL6, MYC, IGH and BCL-2 regions, Clinical significance of gains of MYC/BCL6 is unknown but patient with these findings tend to do poorly Came for follow-up, denies any specific complaint rather more energetic, no fever chills, nausea or vomiting, no diarrhea constipation, no abdominal pain, no mouth sores, no night sweats, no shortness of breath or palpitation, overall feeling well and tolerating systemic chemotherapy with R-CHOP well Medications: Levothyroxine Sodium 1 Tablet (of 25 mcg) Oral daily Allergies: No Known Allergies. Review of Systems: Review of Systems is not available for this patient. Vital Signs: Performed on Apr 04, 2020 14:30 Height - 62.00 in Temperature - 98.2 F (LOW) Pulse - 72 /min Respiration - 18 /min BP - 100/52 mm(hg) O2 Sat - 96 % Pain - 0 Fatigue - 0 Performed on Apr 04, 2020 08:25 Height - 62.00 in Weight - 197.8 lbs (HIGH) BSA - 1.90 sq.m BMI - 36.18 (HIGH) Temperature - 98.4 F Pulse - 82 /min Respiration - 18 /min BP - 113/70 mm(hg) O2 Sat - 99 % Pain - 0 Fatigue - 0 Performance Status: 2 - Ambulatory/capable of all self-care, unable to perform any work activities. Up and about more than 50% of waking hours. (ECOG) Physical Examination: ENMT - No mouth sores, no thrush, no jaundice, Respiratory - Lungs are clear to auscultation, Cardiovascular - Regular rate and rhythm of heart, Abdomen - Soft, bowel sounds present, Extremities - No visible edema. Lab/Imaging: Test performed on Mar 08, 2020 09:50 Sodium 140 mmol/L Potassium 4.5 mmol/L Chloride 101 mmol/L CO2 26 mmol/L Anion Gap 17.5 BUN 23 mg/dL Creatinine 1.3 mg/dL Cr Clearance (Est) 82.1200 mL/min eGFR 58.2 mL/min Glucose 100 mg/dL Osmolality - Calculated 294 mOsm/kg Calcium 9.4 mg/dL Protein, Total 6.1 g/dL Albumin 3.5 g/dL Globulin 2.6 g/dL Bilirubin, Total 0.2 mg/dL ALT (SGPT) < 5 U/L AST (SGOT) 9 U/L Alkaline Phosphatase 106 IU/L WBC 7.7 10 3/uL RBC 2.85 10 6/uL HGB 8.6 g/dL HCT 27.3 % MCV 95.8 fL MCH 30.2 pg MCHC 31.5 g/dL RDW 17.2 % Platelet Count 201 10 3/cmm MPV 9.0 fL Neutrophils 5.02 10 3/uL Lymphocytes 1.7 10 3/uL Monocytes 0.7 10 3/uL Eosinophils 0.1 10 3/uL Basophils 0.0 10 3/uL Neutrophil % 65.5 % Lymphocyte % 22.4 % Monocyte % 9.3 % Eosinophil % 1.8 % Basophils % 0.5 % NRBC % 0 % Test performed on Feb 29, 2020 00:00 Manual Diff Cancelled via OM: Cancelled in Connected System Test performed on Feb 08, 2020 08:30 Irradiated Red Blood Cells [id number] ON RCI XM COMPATIBLE Anti-D Negative Blood Type ON Antibody Screen (Gel) NEGATIVE Test performed on Jan 23, 2020 10:12 Irradiated Leuko Red RBC [id number] ON RCLRI XM COMPATIBLE Test performed on Jan 20, 2020 09:00 CBC Slide Review Slide Review Perform SLIDE REVIEW AGREES WITH AUTOMATED RESULTS ST Test performed on Jan 19, 2020 08:45 LDH (Total) 212 U/L Magnesium 2.0 mg/dL Phosphorus 4.4 mg/dL Uric Acid 7.9 mg/dL Manual Segs % 22 % Manual Bands % 32.0 % Manual Lymphs % 20 % Atypical Lymphs % 3.0 % Total Cells Counted 100 Manual Monos % 9.0 % Manual Eos % 7 % Manual Basos % 2.0 % Metamyelocytes % 5.0 % Microcytosis 1+ Platelet Estimate Normal Manual Segs Abs 1.1 10/cmm Manual Bands Abs 1.6 10 3/cmm Manual Neutrophils Abs 2.6 10 3/cmm Manual Monocytes Abs 0.4 10 3/cmm Manual Eosinophils Abs 0.3 10 3/cmm Manual Basophils Abs 0.1 10 3/cmm Test performed on Dec 06, 2019 14:35 IgG 1211 mg/dL IgA 104 mg/dL IgM 52 mg/dL Impression: Follicular lymphoma grade 3A per right posterior triangle cervical lymph node biopsy done on November 09, 2019, 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 FISH, high-grade lymphoma panel done on March 22, 2020 showed negative for MYC and BCL6 rearrangements and for IGH/BCL-2 fusion. But positive for gains of BCL6, MYC, IGH and BCL-2 regions Ki-67 proliferation index 30 to 40% and MUM1, positive and focus which is partially lacking BCL-2, as per pathology signifies a high-grade and consistency with grade 3A CT scan of chest abdomen pelvis done on November 01, 2019 showed extensive, bulky bilateral axillary lymphadenopathy left axillary lymph node 4 x 3.7 cm right axillary lymph node 4.1 x 1.5 cm and middle mediastinum and anterior mediastinal lymphadenopathy, subcarinal lymph node 5.1 x 2.6 cm and numerous enlarged internal mammary chain lymph nodes and extensive retroperitoneal para-aortic, paracaval lymphadenopathy and largest mass 8.1 x 5.3 x 6.4 cm in the lindsay hepatis posterior to the pancreatic head and anterior to inferior vena cava and numerous bulky masses are observed above this level in the lindsay, throughout the periaortic and paracaval, retroperitoneal and both iliac chain and obturator chains on.pelvis. But no bone abnormality seen and massive splenomegaly size were 22 cm., Clinically, high risk, bulky disease, Anemia, on oral iron per PMD. Because of persistent and progressive anemia, decided to proceed with systemic chemotherapy with R-CHOP, his echocardiogram showed ejection fraction 65%, As his CT scan of abdomen done on January 12, 2020 showed moderate right pleural effusion small left pleural effusion and hepatosplenomegaly and intra-abdominal lymphadenopathy. His repeat chest x-ray after second cycle of chemotherapy done on January 30, 2020 showed no evidence of pleural effusion. After consulting with Dtr Addy @ [facility] Hematology/Oncology on 02/21/2020, Patient proceeded to complete 3 cycles of R-CHOP followed by CT PET scan on March 10, 2020 which showed modest improvement in widespread lymphomatous lymph nodes and resolution of bilateral pleural effusion and near resolution of ascites and improvement in spleen size now 15 cm compared to 20 cm before Plan: Patient regarding his labs white blood count 9.4 hemoglobin 10 hematocrit 32.1 platelets 277,000 CMP within normal limits Clinically, patient is doing reasonably well, tolerating R-CHOP well but with expected side effects. We will proceed with cycle #5 with R-CHOP today and then return to clinic in 2 weeks with CBC CMP FISH, high-grade lymphoma panel findings showed negative for MYC, BCL6 rearrangements and for IGH/BCL-2 fusion but positive for gains of BCL6, MYC, IGH and BCL-2 lesions and clinical significance of this gains is unknown but patient with these findings tend to do poorly so we will discuss with Dr. Albarado at [facility] lymphoma clinic regarding her views and role of high-dose chemotherapy with stem cell. Or repeating lymph node biopsy to rule out persistent low-grade lymphoma component Signed By: Marci Mclean M.D. <<Signature on File>>
[2020-04-11 09:57] LABS: Miscellaneous Test See Scanned Lab Rpt
== END 2020-04-08 23:59 | disposition home or self-care (01) ==
LOC: ONCMED 05:26
PROVIDERS: PCP Nurse Practitioner Family; Visit Provider Internal Medicine Hematology & Oncology
DX: Z51.12 Encounter for antineoplastic immunotherapy (principal); Z51.11 Encounter for antineoplastic chemotherapy; C82.28 Follicular lymphoma grade III, unspecified, lymph nodes of multiple sites; D50.9 Iron deficiency anemia, unspecified; J90 Pleural effusion, not elsewhere classified; R16.2 Hepatomegaly with splenomegaly, not elsewhere classified; Z79.899 Other long term (current) drug therapy
CPT/HCPCS: 36591; 80053; 85025; 88271; 88275; 96367; 96372; 96375; 96411; 96413; 96415; 96417; 99214; J1100; J1200; J1453; J2469; J2505; J7030; J7040; J9000; J9070; J9312; J9370

== ENCOUNTER 2020-04-25 05:29 | Outpatient (RCR) | payer SELFPAY ==
[2020-04-18 10:23] LABS: Basophils # 0.1 10^3/uL (0.0-0.1); Basophils % 0.7 %; Eosinophils # 0.2 10^3/uL (0.0-0.8); Eosinophils % 2.3 %; Hematocrit 37.2 % (42.0-52.0); Hemoglobin 11.7 g/dL (11.7-16.6); Lymphocytes # 2.5 10^3/uL (0.8-4.8); Lymphocytes % 28.3 %; Mean Corpuscular HGB Conc 31.5 g/dL (30.0-36.0); Mean Corpuscular Hemoglobin 29.8 pg (28.0-34.0); Mean Corpuscular Volume 94.7 fL (80-94); Mean Platelet Volume 8.9 fL (7.4-10.4); Monocytes # 0.7 10^3/uL (0.2-0.9); Monocytes % 7.9 %; Neutrophils # 5.19 10^3/uL (1.8-7.7); Neutrophils % 59.9 %; Nucleated Red Blood Cells % 0 %; Platelet Count 186 10^3/cmm (130-400); Red Blood Count 3.93 10^6/uL (4.1-5.3); Red Cell Distribution Width 15.8 % (12.1-15.1); White Blood Count 8.7 10^3/uL (4.0-10.0)
[2020-04-18 10:47] LABS: Alanine Aminotransferase 6 U/L (0-41); Albumin Level 4.2 g/dL (3.5-5.2); Alkaline Phosphatase 87 IU/L (40-130); Anion Gap 13.7 (5-19); Aspartate Amino Transferase 12 U/L (0-40); Blood Urea Nitrogen 23 mg/dL (6-20); Calcium 9.3 mg/dL (8.5-10.5); Carbon Dioxide 28 mmol/L (22-29); Chloride 102 mmol/L (98-107); Globulin 2.1 g/dL (1.3-4.6); Glomerular Filtration Rate 58.2 mL/min (90-130); Glucose 79 mg/dL (65-115); Lactate Dehydrogenase 258 U/L (135-225); Osmolality Calculated 291 mOsm/kg (285-295); Potassium 4.7 mmol/L (3.5-5.1); Sodium 139 mmol/L (136-145); Total Bilirubin 0.2 mg/dL (0.15-1.2); Total Protein 6.3 g/dL (6.6-8.7)
[2020-04-25 09:02] LABS: Basophils # 0.1 10^3/uL (0.0-0.1); Basophils % 0.8 %; Eosinophils # 0.2 10^3/uL (0.0-0.8); Eosinophils % 3.6 %; Hematocrit 36.6 % (42.0-52.0); Hemoglobin 11.7 g/dL (11.7-16.6); Lymphocytes # 1.9 10^3/uL (0.8-4.8); Lymphocytes % 30.2 %; Mean Corpuscular Hemoglobin 30.2 pg (28.0-34.0); Mean Corpuscular Volume 94.3 fL (80-94); Mean Platelet Volume 9.2 fL (7.4-10.4); Monocytes # 0.6 10^3/uL (0.2-0.9); Monocytes % 9.1 %; Neutrophils # 3.56 10^3/uL (1.8-7.7); Nucleated Red Blood Cells % 0 %; Platelet Count 196 10^3/cmm (130-400); Red Blood Count 3.88 10^6/uL (4.1-5.3); Red Cell Distribution Width 14.9 % (12.1-15.1); White Blood Count 6.4 10^3/uL (4.0-10.0)
[2020-04-25 09:52] LABS: Alanine Aminotransferase 6 U/L (0-41); Anion Gap 14.3 (5-19); Aspartate Amino Transferase 17 U/L (0-40); Blood Urea Nitrogen 16 mg/dL (6-20); Carbon Dioxide 26 mmol/L (22-29); Globulin 1.9 g/dL (1.3-4.6); Glomerular Filtration Rate 58.2 mL/min (90-130); Glucose 79 mg/dL (65-115); Osmolality Calculated 290 mOsm/kg (285-295); Total Bilirubin 0.2 mg/dL (0.15-1.2); Total Protein 5.9 g/dL (6.6-8.7)
[2020-04-25 09:53] LABS: Alkaline Phosphatase 65 IU/L (40-130); Chloride 104 mmol/L (98-107); Potassium 4.3 mmol/L (3.5-5.1); Sodium 140 mmol/L (136-145)
[2020-04-25] MEDS: sodium chloride 0.9% 1,000 ML 999 ML IV (10:12)
[2020-04-25] MEDS: palonosetron 0.25 mg/5 mL SDV IVP (10:14)
[2020-04-25] MEDS: diphenhydrAMINE 50 mg/mL SDV 1mL 25 MG IVP (10:14)
[2020-04-25] MEDS: acetaminophen 325 mg Tablet 650 MG PO (10:15)
[2020-04-25] MEDS: pegfilgrastim 6 mg/0.6 mL Kit (onpro) SUBCUT (15:30)
--- NOTE | 2020-04-29 20:51 | ONC FU_ITS ---
[facility] Patient Note Patient: Zhen Reardon Unit #: [id number]: 1970 Dictated By: Chris GodfreyDate of Visit: Apr 18, 2020 Onc MED Follow-Up/Prog Note Chief Complaint: Follicular lymphoma History of Present Illness: Mr. Reardon is a 49-year-old gentleman with newly diagnosed grade 3A follicular lymphoma. He had a right posterior triangle cervical lymph node biopsy done on November 09, 2019. As per patient, he was in his usual health until about 3 months ago when he started having dry cough and subsequently started feeling weak and tired. That was followed by night sweats, weight loss and generalized body aches and pain requiring Percocet. Mr Reardon went to see his primary care physician and a CT scan of chest/abdomen/pelvis was ordered. The CTs were obtained on November 01, 2019 and reported bulky lymphadenopathy in left axilla, upper anterior and middle mediastinum and also right axillary lymph node involvement. His subcarinal lymph node measures up to 5.1 x 2.6 cm and left axillary lymph node measures up to 4 x 3.7 cm and right axillary lymph node 4.1 x 1.5 cm and numerous enlarged internal mammary chain lymph nodes, lung field no abnormality seen no bony destruction seen. CT scan of abdomen and pelvis showed extensive intra-abdominal lymphadenopathy with massive splenomegaly size about 22 cm, and extensive retroperitoneal, mesenteric, portal adenopathy largest node is in the lindsay hepatis measuring 8.1 x 5.3 x 6.4 cm and numerous bulky masses are observed above this level in periaortic paracaval retroperitoneum and throughout both iliac chains and obturator chains in the lower pelvis no bony lytic lesions seen. No free air seen. He was referred to surgery for cervical lymph node biopsy which was done on November 09, 2019 and the final pathology report came back follicular lymphoma, grade 3A, (more than 15 centroblast per high-power field)Immunohistochemistry positive for CD20, PAX 5, CD10, BCL-2, BCL 6 with partial and weakly positive. And Ki-67 was 35 to 40%, MUM1 positive and focus which is partially lacking BCL-2, as per pathology, signifies a higher-grade and consistent with grade 3A. Mr Reardon also had significant B symptoms drenching sweating, weight loss more than 10 pounds in the last couple of months despite of good appetite but no fever- probably masked by Tylenol in Percocet. Patient denies smoking or alcohol use. No family history of lymphoma or blood disorder. Mr Reardon received 4 units of packed RBC on December 06, 2019, as per patient his hemoglobin improved to 7.3 g from 5.3 g after 3 units and then 1 more unit was given with that his hemoglobin improved to 8.3 g. Echocardiogram done on December 06, 2019 showed ejection fraction 65% CT PET scan was done on December 24, 2019. The PET CT reported widespread FDG positive lymphoma from the head and neck to the pelvis; splenic with lymphomatoud infiltration; bilateral pleural effusions with free abdominal fluid present; widespread marrow uptake; this may be reactive, although malignancy infiltration cannot be excluded; malignant left upper lobe pleural implant. Mr. Reardon was referred to us for treatment. He did have port placement of left subclavian vein PowerPort per Dr. Contreras on 12/19/2019. He started his first cycle of CHOP on 12/29/2019. Rituxan was not given with the first CHOP treatment. Patient received second cycle of chemotherapy with R-CHOP on January 30, 2020, Follow-up chest x-ray done on February 08, 2020 showed no acute cardiopulmonary finding, no pleural effusion seen [facility] It was recommended that he proceed with cycle 3 R-CHOP and then do repeat PET/CT. Follow-up PET/CT scan done on March 10, 2020 showed modest improvement in widespread lymphomatous nodes when compared with PET scan done on December 24, 2019. The right inguinal lymph node measured 2.6 x 3.5 cm with SUV of 6.3 compared to 3.5 x 4.5 cm with SUV of 9.2 and the left axillary lymph node is 2.7 cm with SUV of 6 compared to 3.9 cm with SUV of 6.3 previously. The bilateral pleural effusion have resolved in the left pleural implant is greatly improved. Abnormal activity in the spleen has normalized and splenomegaly has improved now 15 cm compared to 20 cm previously. Abdominal fluid has seen previously is nearly resolved on the study. FISH, high-grade lymphoma panel done on 03/22/2020 showed negative for MYC and BCL6 rearrangement and for IGH/BCL-2 fusion but positive for gains of BCL6, MYC, IGH and BCL-2 regions, Clinical significance of gains of MYC/BCL6 is unknown but patient with these findings tend to do poorly Mr. Reardon is here today for follow-up. He has now completed 5 cycles of CHOP and 4 cycles of rituximab. He states overall he feels great. He denies any shortness of breath orthopnea. He states he still tires easily but that is getting better. He states he is able to get out and feel a bit more and feels that he is building up his stamina some. He still works. He denies any fever or chills. He has had no lower extremity edema. He denies any pain. He states his bowels and bladder are normal for him. He denies any neuropathy. He has no new concerns today. His ECOG is 1. Past Medical History: Anemia Hypothyroidism Past Surgical History: Lymph node removal from neck Left subclavian Power Port[facility] in 2019 Allergies: No Known Allergies. Medications: Levothyroxine Sodium 1 Tablet (of 25 mcg) Oral daily Family History: Mr. Reardon's mother is : ovarian cancer. Mr. Reardon's father is . Mr. Reardon's maternal grandmother is : myocardial infarction. His maternal grandfather is . His paternal grandmother is . His paternal grandfather is . Social History: Mr. Reardon is . Mr. Reardon has never smoked. He has no history of drinking. Review Of Symptoms: Constitutional Denies fevers, chills, night sweats, excessive fatigue or weight loss. Tired but stable and is able to do ADLs. Energy is improving. Allergic/Immunologic No reactions. Eyes Denies significant visual changes. No diplopia. No amaurosis. ENMT Denies changes in hearing, sore throat, mouth sores, difficulty or changes in swallowing ability, and/or sinus drainage. Endocrine No diabetes, thyroid disease or hormone replacement. Denies hot flashes or night sweats. Hematologic/Lymphatic Denies easy bruising or bleeding. The patient denies any tender or palpable lymph nodes. Respiratory Denies worsening dyspnea on exertion, chest pain, cough or hemoptysis. Denies orthopnea. Cardiovascular Denies anginal chest pain, palpitations or orthopnea. Gastrointestinal Denies nausea, vomiting, diarrhea, GI bleeding, or constipation. Denies change in bowel habits and/or stool color, no heartburn or early satiety. Genitourinary (M) Denies hematuria, dysuria, increased frequency, urgency, hesitancy or incontinence. Musculoskeletal Denies joint pain, swelling or redness. No decreased range of motion. Integumentary Denies chronic rashes, inflammation, ulcerations or skin changes. Neurologic Denies headache, blurred vision, and no areas of focal weakness or numbness. Normal gait. Psychiatric Denies insomnia, depression, renny or mood swings. Vital Signs: Performed on Apr 18, 2020 12:10 Height - 62.00 in Weight - 201.6 lbs (HIGH) BSA - 1.92 sq.m BMI - 36.87 (HIGH) Temperature - 98.0 F (LOW) Pulse - 77 /min Respiration - 18 /min BP - 117/77 mm(hg) O2 Sat - 97 % Pain - 0,1 - No physically strenuous activity, but ambulatory and able to carry out light or sedentary work (e.g. office work, light house work). (ECOG) Physical Examination: Constitutional Alert, oriented, no acute distress. Skin pale/pink, warm and dry. Head Normocephalic; atraumatic. Eyes Conjunctivae and sclerae are clear and without icterus. Pupils are reactive and equal. Neck Supple without masses or thyromegaly. No jugular venous distension. Respiratory Lungs are clear to auscultation without rhonchi or wheezing. Cardiovascular Regular rate and rhythm of heart without murmurs,clicks, gallops or rubs. Chest Left subclavian PowerPort site is unremarkable. Abdomen Non-tender, non-distended, no masses or ascites. Good bowel sounds noted in all quads. No guarding or rebound tenderness. No pulsatile masses. Back/Spine Non-tender to palpation. Extremities No visible deformities, no cyanosis, clubbing or edema. Musculoskeletal No tenderness or swelling, normal range of motion without obvious weakness. Integumentary No rashes or lesions. Neurologic No sensory or motor deficits, normal cerebellar function, normal gait. Psychiatric Alert and oriented times three. Coherent speech. Verbalizes understanding of our discussions today. Laboratory:Test performed on Apr 18, 2020 10:00 LDH (Total) 258 U/L Sodium 139 mmol/L Potassium 4.7 mmol/L Chloride 102 mmol/L CO2 28 mmol/L Anion Gap 13.7 BUN 23 mg/dL Creatinine 1.3 mg/dL Cr Clearance (Est) 82.1200 mL/min eGFR 58.2 mL/min Glucose 79 mg/dL Osmolality - Calculated 291 mOsm/kg Calcium 9.3 mg/dL Protein, Total 6.3 g/dL Albumin 4.2 g/dL Globulin 2.1 g/dL Bilirubin, Total 0.2 mg/dL ALT (SGPT) 6 U/L AST (SGOT) 12 U/L Alkaline Phosphatase 87 IU/L WBC 8.7 10 3/uL RBC 3.93 10 6/uL HGB 11.7 g/dL HCT 37.2 % MCV 94.7 fL MCH 29.8 pg MCHC 31.5 g/dL RDW 15.8 % Platelet Count 186 10 3/cmm MPV 8.9 fL Neutrophils 5.19 10 3/uL Lymphocytes 2.5 10 3/uL Monocytes 0.7 10 3/uL Eosinophils 0.2 10 3/uL Basophils 0.1 10 3/uL Neutrophil % 59.9 % Lymphocyte % 28.3 % Monocyte % 7.9 % Eosinophil % 2.3 % Basophils % 0.7 % NRBC % 0 % Test performed on Feb 29, 2020 00:00 Manual Diff Cancelled via OM: Cancelled in Connected System Test performed on Feb 08, 2020 08:30 Irradiated Red Blood Cells [id number] ON RCI XM COMPATIBLE Anti-D Negative Blood Type ON Antibody Screen (Gel) NEGATIVE Test performed on Jan 23, 2020 10:12 Irradiated Leuko Red RBC [id number] ON RCLRI XM COMPATIBLE Test performed on Jan 20, 2020 09:00 CBC Slide Review Slide Review Perform SLIDE REVIEW AGREES WITH AUTOMATED RESULTS ST Test performed on Jan 19, 2020 08:45 Magnesium 2.0 mg/dL Phosphorus 4.4 mg/dL Uric Acid 7.9 mg/dL Manual Segs % 22 % Manual Bands % 32.0 % Manual Lymphs % 20 % Atypical Lymphs % 3.0 % Total Cells Counted 100 Manual Monos % 9.0 % Manual Eos % 7 % Manual Basos % 2.0 % Metamyelocytes % 5.0 % Microcytosis 1+ Platelet Estimate Normal Manual Segs Abs 1.1 10/cmm Manual Bands Abs 1.6 10 3/cmm Manual Neutrophils Abs 2.6 10 3/cmm Manual Monocytes Abs 0.4 10 3/cmm Manual Eosinophils Abs 0.3 10 3/cmm Manual Basophils Abs 0.1 10 3/cmm Test performed on Dec 06, 2019 14:35 IgG 1211 mg/dL IgA 104 mg/dL IgM 52 mg/dL Impression: Follicular lymphoma grade 3A per right posterior triangle cervical lymph node biopsy done on November 09, 2019, 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 FISH, high-grade lymphoma panel done on March 22, 2020 showed negative for MYC and BCL6 rearrangements and for IGH/BCL-2 fusion. But positive for gains of BCL6, MYC, IGH and BCL-2 regions Ki-67 proliferation index 30 to 40% and MUM1, positive and focus which is partially lacking BCL-2, as per pathology signifies a high-grade and consistency with grade 3A CT scan of chest abdomen pelvis done on November 01, 2019 showed extensive, bulky bilateral axillary lymphadenopathy left axillary lymph node 4 x 3.7 cm right axillary lymph node 4.1 x 1.5 cm and middle mediastinum and anterior mediastinal lymphadenopathy, subcarinal lymph node 5.1 x 2.6 cm and numerous enlarged internal mammary chain lymph nodes and extensive retroperitoneal para-aortic, paracaval lymphadenopathy and largest mass 8.1 x 5.3 x 6.4 cm in the lindsay hepatis posterior to the pancreatic head and anterior to inferior vena cava and numerous bulky masses are observed above this level in the lindsay, throughout the periaortic and paracaval, retroperitoneal and both iliac chain and obturator chains on.pelvis. But no bone abnormality seen and massive splenomegaly size were 22 cm., Clinically, high risk, bulky disease, Anemia, on oral iron per PMD. Because of persistent and progressive anemia, decided to proceed with systemic chemotherapy with R-CHOP, his echocardiogram showed ejection fraction 65%, As his CT scan of abdomen done on January 12, 2020 showed moderate right pleural effusion small left pleural effusion and hepatosplenomegaly and intra-abdominal lymphadenopathy. His repeat chest x-ray after second cycle of chemotherapy done on January 30, 2020 showed no evidence of pleural effusion. After consulting with Lucita Daly @ [facility] Hematology/On[facility] on 02/21/2020, Patient proceeded to complete 3 cycles of R-CHOP followed by CT PET scan on March 10, 2020 which showed modest improvement in widespread lymphomatous lymph nodes and resolution of bilateral pleural effusion and near resolution of ascites and improvement in spleen size now 15 cm compared to 20 cm before Plan: PROBLEMS ADDRESSED TODAY 1. Follicular lymphoma???currently undergoing treatment with R-CHOP. Today is an interim visit as he was last treated on 04/04/2020. A. Proceed with cycle 5 R-CHOP. This is day 15. He is due for cycle 6 R-CHOP next week. He is tolerating it well. B. Labs from today were reviewed in detail and discussed with Mr. Reardon and a copy was given to him. WBC 8.7, hemoglobin 11.7, platelets 186,000 ANC is 5190. Creatinine 1.3 random glucose 79 potassium 4.7 LFTs are normal his LDH is 258. C. Per Dr. Mclean's last note: FISH, high-grade lymphoma panel findings showed negative for MYC, BCL6 rearrangements and for IGH/BCL-2 fusion but positive for gains of BCL6, MYC, IGH and BCL-2 lesions and clinical significance of this gains is unknown but patient with these findings tend to do poorly so we will discuss with Dr. Albarado at [facility] lymphoma clinic regarding her views and role of high-dose chemotherapy with stem cell. Or repeating lymph node biopsy to rule out persistent low-grade lymphoma component . 2. Follow-up plan A. Mr. Reardon will return in 1 week with CBC CMP. He will be due to start cycle 6 R-CHOP at that time after review of his labs. B. Mr. Reardon was instructed to contact us in interim should questions or problems arise. Signed By: Shelia GodfreyN.Marcia. <<Signature on File>>
== END 2020-05-09 23:59 | disposition home or self-care (01) ==
LOC: ONCMED 05:29
PROVIDERS: Nurse Practitioner; PCP Nurse Practitioner Family; Visit Provider Internal Medicine Medical Oncology
DX: Z51.11 Encounter for antineoplastic chemotherapy (principal); Z51.12 Encounter for antineoplastic immunotherapy; C82.28 Follicular lymphoma grade III, unspecified, lymph nodes of multiple sites; D50.9 Iron deficiency anemia, unspecified; E03.9 Hypothyroidism, unspecified; Z79.899 Other long term (current) drug therapy
CPT/HCPCS: 36591; 80053; 83615; 85025; 96367; 96372; 96375; 96411; 96413; 96415; 96417; 99214; J1100; J1200; J1453; J2469; J2505; J7030; J7040; J9000; J9070; J9312; J9370

== ENCOUNTER 2020-06-08 05:39 | Outpatient (RCR) | payer SELFPAY ==
[2020-05-10 09:50] LABS: Basophils # 0.1 10^3/uL (0.0-0.1); Basophils % 1.3 %; Eosinophils # 0.2 10^3/uL (0.0-0.8); Eosinophils % 2.4 %; Hematocrit 38.2 % (42.0-52.0); Hemoglobin 12.6 g/dL (11.7-16.6); Lymphocytes # 2.6 10^3/uL (0.8-4.8); Lymphocytes % 33.8 %; Mean Corpuscular Hemoglobin 30.7 pg (28.0-34.0); Mean Corpuscular Volume 92.9 fL (80-94); Mean Platelet Volume 9.4 fL (7.4-10.4); Monocytes # 0.7 10^3/uL (0.2-0.9); Monocytes % 8.8 %; Neutrophils # 4.01 10^3/uL (1.8-7.7); Neutrophils % 51.6 %; Nucleated Red Blood Cells % 0 %; Platelet Count 154 10^3/cmm (130-400); Red Blood Count 4.11 10^6/uL (4.1-5.3); White Blood Count 7.8 10^3/uL (4.0-10.0)
[2020-05-10 10:05] LABS: Alanine Aminotransferase 8 U/L (0-41); Albumin Level 4.2 g/dL (3.5-5.2); Alkaline Phosphatase 64 IU/L (40-130); Anion Gap 13.3 (5-19); Aspartate Amino Transferase 18 U/L (0-40); Blood Urea Nitrogen 17 mg/dL (6-20); Calcium 9.2 mg/dL (8.5-10.5); Carbon Dioxide 27 mmol/L (22-29); Chloride 102 mmol/L (98-107); Globulin 1.9 g/dL (1.3-4.6); Glomerular Filtration Rate 58.2 mL/min (90-130); Glucose 92 mg/dL (65-115); Osmolality Calculated 287 mOsm/kg (285-295); Potassium 4.3 mmol/L (3.5-5.1); Sodium 138 mmol/L (136-145); Total Bilirubin 0.3 mg/dL (0.15-1.2); Total Protein 6.1 g/dL (6.6-8.7)
--- NOTE | 2020-05-10 16:35 | ONC FU_ITS ---
Dr. Mclean follow up note Patient: Zhen Reardon Unit #: [id number]: 1970 Dicatated By: Marci Mclean M.D.Date of Visit:May 10, 2020 Onc Med Follow-up/Prog Note History of Present Illness: Mr. Reardon is a 49-year-old gentleman with newly diagnosed grade 3A follicular lymphoma. He had a right posterior triangle cervical lymph node biopsy done on November 09, 2019. As per patient, he was in his usual health until about 3 months ago when he started having dry cough and subsequently started feeling weak and tired. That was followed by night sweats, weight loss and generalized body aches and pain requiring Percocet. Mr Reardon went to see his primary care physician and a CT scan of chest/abdomen/pelvis was ordered. The CTs were obtained on November 01, 2019 and reported bulky lymphadenopathy in left axilla, upper anterior and middle mediastinum and also right axillary lymph node involvement. His subcarinal lymph node measures up to 5.1 x 2.6 cm and left axillary lymph node measures up to 4 x 3.7 cm and right axillary lymph node 4.1 x 1.5 cm and numerous enlarged internal mammary chain lymph nodes, lung field no abnormality seen no bony destruction seen. CT scan of abdomen and pelvis showed extensive intra-abdominal lymphadenopathy with massive splenomegaly size about 22 cm, and extensive retroperitoneal, mesenteric, portal adenopathy largest node is in the lindsay hepatis measuring 8.1 x 5.3 x 6.4 cm and numerous bulky masses are observed above this level in periaortic paracaval retroperitoneum and throughout both iliac chains and obturator chains in the lower pelvis no bony lytic lesions seen. No free air seen. He was referred to surgery for cervical lymph node biopsy which was done on November 09, 2019 and the final pathology report came back follicular lymphoma, grade 3A, (more than 15 centroblast per high-power field)Immunohistochemistry positive for CD20, PAX 5, CD10, BCL-2, BCL 6 with partial and weakly positive. And Ki-67 was 35 to 40%, MUM1 positive and focus which is partially lacking BCL-2, as per pathology, signifies a higher-grade and consistent with grade 3A. Mr Reardon also had significant B symptoms drenching sweating, weight loss more than 10 pounds in the last couple of months despite of good appetite but no fever- probably masked by Tylenol in Percocet. Patient denies smoking or alcohol use. No family history of lymphoma or blood disorder. Mr Reardon received 4 units of packed RBC on December 06, 2019, as per patient his hemoglobin improved to 7.3 g from 5.3 g after 3 units and then 1 more unit was given with that his hemoglobin improved to 8.3 g. Echocardiogram done on December 06, 2019 showed ejection fraction 65% CT PET scan was done on December 24, 2019. The PET CT reported widespread FDG positive lymphoma from the head and neck to the pelvis; splenic with lymphomatoud infiltration; bilateral pleural effusions with free abdominal fluid present; widespread marrow uptake; this may be reactive, although malignancy infiltration cannot be excluded; malignant left upper lobe pleural implant. Mr. Reardon was referred to us for treatment. He did have port placement of left subclavian vein PowerPort per Dr. Contreras on 12/19/2019. He started his first cycle of CHOP on 12/29/2019. Rituxan was not given with the first CHOP treatment. Patient received second cycle of chemotherapy with R-CHOP on January 30, 2020, Follow-up chest x-ray done on February 08, 2020 showed no acute cardiopulmonary finding, no pleural effusion seen [facility] It was recommended that he proceed with cycle 3 R-CHOP and then do repeat PET/CT. Follow-up PET/CT scan done on March 10, 2020 showed modest improvement in widespread lymphomatous nodes when compared with PET scan done on December 24, 2019. The right inguinal lymph node measured 2.6 x 3.5 cm with SUV of 6.3 compared to 3.5 x 4.5 cm with SUV of 9.2 and the left axillary lymph node is 2.7 cm with SUV of 6 compared to 3.9 cm with SUV of 6.3 previously. The bilateral pleural effusion have resolved in the left pleural implant is greatly improved. Abnormal activity in the spleen has normalized and splenomegaly has improved now 15 cm compared to 20 cm previously. Abdominal fluid has seen previously is nearly resolved on the study. FISH, high-grade lymphoma panel done on 03/22/2020 showed negative for MYC and BCL6 rearrangement and for IGH/BCL-2 fusion but positive for gains of BCL6, MYC, IGH and BCL-2 regions, Clinical significance of gains of MYC/BCL6 is unknown but patient with these findings tend to do poorly Came for follow-up, denies any specific complaints, more energetic, no night sweats, no recurrent fever, no weight loss rather gaining weight, no diarrhea or constipation, no peripheral neuropathy, overall feeling more energetic, has tolerated 6 cycles of chemotherapy with R-CHOP Medications: Levothyroxine Sodium 1 Tablet (of 25 mcg) Oral daily Allergies: No Known Allergies. Review of Systems: Review of Systems is not available for this patient. Vital Signs: Performed on May 10, 2020 10:55 Height - 62.00 in Weight - 205.2 lbs (HIGH) BSA - 1.93 sq.m BMI - 37.53 (HIGH) Temperature - 98.2 F (LOW) Pulse - 67 /min Respiration - 18 /min BP - 131/88 mm(hg) O2 Sat - 97 % Pain - 0 Fatigue - 0 Performance Status: 0 - Fully active, able to carry on all predisease activities without restrictions. (ECOG) Physical Examination: ENMT - No mouth sores, no thrush, no jaundice no cervical lymphadenopathy, Respiratory - Lungs are clear to auscultation, Cardiovascular - Regular rate and rhythm of heart, Abdomen - Soft, bowel sounds present, Extremities - No visible edema. Lab/Imaging: Test performed on Apr 18, 2020 10:00 LDH (Total) 258 U/L Sodium 139 mmol/L Potassium 4.7 mmol/L Chloride 102 mmol/L CO2 28 mmol/L Anion Gap 13.7 BUN 23 mg/dL Creatinine 1.3 mg/dL Cr Clearance (Est) 82.1200 mL/min eGFR 58.2 mL/min Glucose 79 mg/dL Osmolality - Calculated 291 mOsm/kg Calcium 9.3 mg/dL Protein, Total 6.3 g/dL Albumin 4.2 g/dL Globulin 2.1 g/dL Bilirubin, Total 0.2 mg/dL ALT (SGPT) 6 U/L AST (SGOT) 12 U/L Alkaline Phosphatase 87 IU/L WBC 8.7 10 3/uL RBC 3.93 10 6/uL HGB 11.7 g/dL HCT 37.2 % MCV 94.7 fL MCH 29.8 pg MCHC 31.5 g/dL RDW 15.8 % Platelet Count 186 10 3/cmm MPV 8.9 fL Neutrophils 5.19 10 3/uL Lymphocytes 2.5 10 3/uL Monocytes 0.7 10 3/uL Eosinophils 0.2 10 3/uL Basophils 0.1 10 3/uL Neutrophil % 59.9 % Lymphocyte % 28.3 % Monocyte % 7.9 % Eosinophil % 2.3 % Basophils % 0.7 % NRBC % 0 % Test performed on Feb 29, 2020 00:00 Manual Diff Cancelled via OM: Cancelled in Connected System Test performed on Feb 08, 2020 08:30 Irradiated Red Blood Cells [id number] ON RCI XM COMPATIBLE Anti-D Negative Blood Type ON Antibody Screen (Gel) NEGATIVE Test performed on Jan 23, 2020 10:12 Irradiated Leuko Red RBC [id number] ON RCLRI XM COMPATIBLE Test performed on Jan 20, 2020 09:00 CBC Slide Review Slide Review Perform SLIDE REVIEW AGREES WITH AUTOMATED RESULTS ST Test performed on Jan 19, 2020 08:45 Magnesium 2.0 mg/dL Phosphorus 4.4 mg/dL Uric Acid 7.9 mg/dL Manual Segs % 22 % Manual Bands % 32.0 % Manual Lymphs % 20 % Atypical Lymphs % 3.0 % Total Cells Counted 100 Manual Monos % 9.0 % Manual Eos % 7 % Manual Basos % 2.0 % Metamyelocytes % 5.0 % Microcytosis 1+ Platelet Estimate Normal Manual Segs Abs 1.1 10/cmm Manual Bands Abs 1.6 10 3/cmm Manual Neutrophils Abs 2.6 10 3/cmm Manual Monocytes Abs 0.4 10 3/cmm Manual Eosinophils Abs 0.3 10 3/cmm Manual Basophils Abs 0.1 10 3/cmm Test performed on Dec 06, 2019 14:35 IgG 1211 mg/dL IgA 104 mg/dL IgM 52 mg/dL Impression: Follicular lymphoma grade 3A per right posterior triangle cervical lymph node biopsy done on November 09, 2019, 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 FISH, high-grade lymphoma panel done on March 22, 2020 showed negative for MYC and BCL6 rearrangements and for IGH/BCL-2 fusion. But positive for gains of BCL6, MYC, IGH and BCL-2 regions Ki-67 proliferation index 30 to 40% and MUM1, positive and focus which is partially lacking BCL-2, as per pathology signifies a high-grade and consistency with grade 3A CT scan of chest abdomen pelvis done on November 01, 2019 showed extensive, bulky bilateral axillary lymphadenopathy left axillary lymph node 4 x 3.7 cm right axillary lymph node 4.1 x 1.5 cm and middle mediastinum and anterior mediastinal lymphadenopathy, subcarinal lymph node 5.1 x 2.6 cm and numerous enlarged internal mammary chain lymph nodes and extensive retroperitoneal para-aortic, paracaval lymphadenopathy and largest mass 8.1 x 5.3 x 6.4 cm in the lindsay hepatis posterior to the pancreatic head and anterior to inferior vena cava and numerous bulky masses are observed above this level in the lindsay, throughout the periaortic and paracaval, retroperitoneal and both iliac chain and obturator chains on.pelvis. But no bone abnormality seen and massive splenomegaly size were 22 cm., Clinically, high risk, bulky disease, Anemia, on oral iron per PMD. Because of persistent and progressive anemia, decided to proceed with systemic chemotherapy with R-CHOP, his echocardiogram showed ejection fraction 65%, As his CT scan of abdomen done on January 12, 2020 showed moderate right pleural effusion small left pleural effusion and hepatosplenomegaly and intra-abdominal lymphadenopathy. His repeat chest x-ray after second cycle of chemotherapy done on January 30, 2020 showed no evidence of pleural effusion. After consulting with Lucita Daly @ [facility] Hematology/On[facility] on 02/21/2020, Patient proceeded to complete 3 cycles of R-CHOP followed by CT PET scan on March 10, 2020 which showed modest improvement in widespread lymphomatous lymph nodes and resolution of bilateral pleural effusion and near resolution of ascites and improvement in spleen size now 15 cm compared to 20 cm before Plan: .Discussed with patient regarding his labs white blood count 7.8 hemoglobin 12.6 hematocrit 38.2 platelets 154,000 ANC 4010, CMP within normal limit except creatinine 1.3 which is stable Clinically, patient doing well with no new signs symptom suggestive of disease progression, has responded very well to 6 cycles of chemotherapy with R-CHOP now with normalization of anemia and thrombocytopenia, improvement in kidney function test now with mild renal insufficiency but stable At this point ,will consider follow-up CT PET scan to assess the disease status and then plan accordingly, patient return to clinic after CT PET scan for further discussion with CBC CMP Signed By: Marci Mclean M.D. <<Signature on File>>
[2020-06-08 09:03] LABS: Basophils % 0.6 %; Eosinophils # 0.4 10^3/uL (0.0-0.8); Eosinophils % 7.2 %; Hematocrit 38.8 % (42.0-52.0); Hemoglobin 13.2 g/dL (11.7-16.6); Lymphocytes # 2.1 10^3/uL (0.8-4.8); Lymphocytes % 41.7 %; Mean Corpuscular Hemoglobin 30.6 pg (28.0-34.0); Mean Platelet Volume 10.1 fL (7.4-10.4); Monocytes # 0.4 10^3/uL (0.2-0.9); Monocytes % 8.7 %; Neutrophils # 2.05 10^3/uL (1.8-7.7); Neutrophils % 40.8 %; Nucleated Red Blood Cells % 0 %; Platelet Count 174 10^3/cmm (130-400); Red Blood Count 4.31 10^6/uL (4.1-5.3)
[2020-06-08 09:26] LABS: Alanine Aminotransferase 13 U/L (0-41); Alkaline Phosphatase 67 IU/L (40-130); Aspartate Amino Transferase 22 U/L (0-40); Blood Urea Nitrogen 15 mg/dL (6-20); Calcium 8.9 mg/dL (8.5-10.5); Carbon Dioxide 27 mmol/L (22-29); Chloride 105 mmol/L (98-107); Globulin 1.8 g/dL (1.3-4.6); Glomerular Filtration Rate 63.8 mL/min (90-130); Glucose 105 mg/dL (65-115); Osmolality Calculated 291 mOsm/kg (285-295); Sodium 140 mmol/L (136-145); Total Bilirubin 0.4 mg/dL (0.15-1.2); Total Protein 5.8 g/dL (6.6-8.7)
[2020-06-08 09:29] LABS: Anion Gap 12.4 (5-19); Potassium 4.4 mmol/L (3.5-5.1)
--- NOTE | 2020-06-08 11:45 | ONC FU_ITS ---
Dr. Mclean follow up note Patient: Zhen Reardon Unit #: [id number]: 1970 Dicatated By: Marci Mclean M.D.Date of Visit:Jun 08, 2020 Onc Med Follow-up/Prog Note History of Present Illness: Mr. Reardon is a 49-year-old gentleman with newly diagnosed grade 3A follicular lymphoma. He had a right posterior triangle cervical lymph node biopsy done on November 09, 2019. As per patient, he was in his usual health until about 3 months ago when he started having dry cough and subsequently started feeling weak and tired. That was followed by night sweats, weight loss and generalized body aches and pain requiring Percocet. Mr Reardon went to see his primary care physician and a CT scan of chest/abdomen/pelvis was ordered. The CTs were obtained on November 01, 2019 and reported bulky lymphadenopathy in left axilla, upper anterior and middle mediastinum and also right axillary lymph node involvement. His subcarinal lymph node measures up to 5.1 x 2.6 cm and left axillary lymph node measures up to 4 x 3.7 cm and right axillary lymph node 4.1 x 1.5 cm and numerous enlarged internal mammary chain lymph nodes, lung field no abnormality seen no bony destruction seen. CT scan of abdomen and pelvis showed extensive intra-abdominal lymphadenopathy with massive splenomegaly size about 22 cm, and extensive retroperitoneal, mesenteric, portal adenopathy largest node is in the lindsay hepatis measuring 8.1 x 5.3 x 6.4 cm and numerous bulky masses are observed above this level in periaortic paracaval retroperitoneum and throughout both iliac chains and obturator chains in the lower pelvis no bony lytic lesions seen. No free air seen. He was referred to surgery for cervical lymph node biopsy which was done on November 09, 2019 and the final pathology report came back follicular lymphoma, grade 3A, (more than 15 centroblast per high-power field)Immunohistochemistry positive for CD20, PAX 5, CD10, BCL-2, BCL 6 with partial and weakly positive. And Ki-67 was 35 to 40%, MUM1 positive and focus which is partially lacking BCL-2, as per pathology, signifies a higher-grade and consistent with grade 3A. Mr Reardon also had significant B symptoms drenching sweating, weight loss more than 10 pounds in the last couple of months despite of good appetite but no fever- probably masked by Tylenol in Percocet. Patient denies smoking or alcohol use. No family history of lymphoma or blood disorder. Mr Reardon received 4 units of packed RBC on December 06, 2019, as per patient his hemoglobin improved to 7.3 g from 5.3 g after 3 units and then 1 more unit was given with that his hemoglobin improved to 8.3 g. Echocardiogram done on December 06, 2019 showed ejection fraction 65% CT PET scan was done on December 24, 2019. The PET CT reported widespread FDG positive lymphoma from the head and neck to the pelvis; splenic with lymphomatoud infiltration; bilateral pleural effusions with free abdominal fluid present; widespread marrow uptake; this may be reactive, although malignancy infiltration cannot be excluded; malignant left upper lobe pleural implant. Mr. Reardon was referred to us for treatment. He did have port placement of left subclavian vein PowerPort per Dr. Contreras on 12/19/2019. He started his first cycle of CHOP on 12/29/2019. Rituxan was not given with the first CHOP treatment. Patient received second cycle of chemotherapy with R-CHOP on January 30, 2020, Follow-up chest x-ray done on February 08, 2020 showed no acute cardiopulmonary finding, no pleural effusion seen [facility] It was recommended that he proceed with cycle 3 R-CHOP and then do repeat PET/CT. Follow-up PET/CT scan done on March 10, 2020 showed modest improvement in widespread lymphomatous nodes when compared with PET scan done on December 24, 2019. The right inguinal lymph node measured 2.6 x 3.5 cm with SUV of 6.3 compared to 3.5 x 4.5 cm with SUV of 9.2 and the left axillary lymph node is 2.7 cm with SUV of 6 compared to 3.9 cm with SUV of 6.3 previously. The bilateral pleural effusion have resolved in the left pleural implant is greatly improved. Abnormal activity in the spleen has normalized and splenomegaly has improved now 15 cm compared to 20 cm previously. Abdominal fluid has seen previously is nearly resolved on the study. FISH, high-grade lymphoma panel done on 03/22/2020 showed negative for MYC and BCL6 rearrangement and for IGH/BCL-2 fusion but positive for gains of BCL6, MYC, IGH and BCL-2 regions, Clinical significance of gains of MYC/BCL6 is unknown but patient with these findings tend to do poor , After 6 cycles of R-CHOP Follow-up CT PET scan done on May 19, 2020 showed essentially resolution of widespread FDG positive adenopathy, nodes in the retroperitoneal space are still prominent measuring 1.5 to 2 cm but now without significant FDG activity. Unifocal hepatic lesion now measured 2.5 cm with SUV of 8.1, down from 3.5 cm on prior study. Splenic activity is physiological Came for follow-up, denies any specific complaint, no fever chills, no nausea or vomiting, no diarrhea constipation, no night sweats, no weight loss, no peripheral lymphadenopathy, no recurrent fever, no jaundice, no melena or hematochezia, no hemoptysis or hematemesis, overall feeling more energetic. Medications: Levothyroxine Sodium 1 Tablet (of 25 mcg) Oral daily Allergies: No Known Allergies. Review of Systems: Review of Systems is not available for this patient. Vital Signs: Performed on Jun 08, 2020 09:47 Height - 62.00 in Weight - 207.2 lbs (HIGH) BSA - 1.94 sq.m BMI - 37.90 (HIGH) Temperature - 97.9 F (LOW) Pulse - 72 /min Respiration - 18 /min BP - 141/79 mm(hg) (HIGH) O2 Sat - 98 % Pain - 0 Performance Status: 0 - Fully active, able to carry on all predisease activities without restrictions. (ECOG) Physical Examination: ENMT - No mouth sores, no thrush, no jaundice no cervical or axillary lymphadenopathy, Respiratory - Lungs are clear to auscultation, Cardiovascular - Regular rate and rhythm of heart, Abdomen - Soft, bowel sounds present, Extremities - No visible edema. Lab/Imaging: Test performed on Apr 18, 2020 10:00 LDH (Total) 258 U/L Sodium 139 mmol/L Potassium 4.7 mmol/L Chloride 102 mmol/L CO2 28 mmol/L Anion Gap 13.7 BUN 23 mg/dL Creatinine 1.3 mg/dL Cr Clearance (Est) 82.1200 mL/min eGFR 58.2 mL/min Glucose 79 mg/dL Osmolality - Calculated 291 mOsm/kg Calcium 9.3 mg/dL Protein, Total 6.3 g/dL Albumin 4.2 g/dL Globulin 2.1 g/dL Bilirubin, Total 0.2 mg/dL ALT (SGPT) 6 U/L AST (SGOT) 12 U/L Alkaline Phosphatase 87 IU/L WBC 8.7 10 3/uL RBC 3.93 10 6/uL HGB 11.7 g/dL HCT 37.2 % MCV 94.7 fL MCH 29.8 pg MCHC 31.5 g/dL RDW 15.8 % Platelet Count 186 10 3/cmm MPV 8.9 fL Neutrophils 5.19 10 3/uL Lymphocytes 2.5 10 3/uL Monocytes 0.7 10 3/uL Eosinophils 0.2 10 3/uL Basophils 0.1 10 3/uL Neutrophil % 59.9 % Lymphocyte % 28.3 % Monocyte % 7.9 % Eosinophil % 2.3 % Basophils % 0.7 % NRBC % 0 % Test performed on Feb 29, 2020 00:00 Manual Diff Cancelled via OM: Cancelled in Connected System Test performed on Feb 08, 2020 08:30 Irradiated Red Blood Cells [id number] ON RCI XM COMPATIBLE Anti-D Negative Blood Type ON Antibody Screen (Gel) NEGATIVE Test performed on Jan 23, 2020 10:12 Irradiated Leuko Red RBC [id number] ON RCLRI XM COMPATIBLE Test performed on Jan 20, 2020 09:00 CBC Slide Review Slide Review Perform SLIDE REVIEW AGREES WITH AUTOMATED RESULTS ST Test performed on Jan 19, 2020 08:45 Magnesium 2.0 mg/dL Phosphorus 4.4 mg/dL Uric Acid 7.9 mg/dL Manual Segs % 22 % Manual Bands % 32.0 % Manual Lymphs % 20 % Atypical Lymphs % 3.0 % Total Cells Counted 100 Manual Monos % 9.0 % Manual Eos % 7 % Manual Basos % 2.0 % Metamyelocytes % 5.0 % Microcytosis 1+ Platelet Estimate Normal Manual Segs Abs 1.1 10/cmm Manual Bands Abs 1.6 10 3/cmm Manual Neutrophils Abs 2.6 10 3/cmm Manual Monocytes Abs 0.4 10 3/cmm Manual Eosinophils Abs 0.3 10 3/cmm Manual Basophils Abs 0.1 10 3/cmm Impression: Follicular lymphoma grade 3A per right posterior triangle cervical lymph node biopsy done on November 09, 2019, 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 FISH, high-grade lymphoma panel done on March 22, 2020 showed negative for MYC and BCL6 rearrangements and for IGH/BCL-2 fusion. But positive for gains of BCL6, MYC, IGH and BCL-2 regions Ki-67 proliferation index 30 to 40% and MUM1, positive and focus which is partially lacking BCL-2, as per pathology signifies a high-grade and consistency with grade 3A CT scan of chest abdomen pelvis done on November 01, 2019 showed extensive, bulky bilateral axillary lymphadenopathy left axillary lymph node 4 x 3.7 cm right axillary lymph node 4.1 x 1.5 cm and middle mediastinum and anterior mediastinal lymphadenopathy, subcarinal lymph node 5.1 x 2.6 cm and numerous enlarged internal mammary chain lymph nodes and extensive retroperitoneal para-aortic, paracaval lymphadenopathy and largest mass 8.1 x 5.3 x 6.4 cm in the lindsay hepatis posterior to the pancreatic head and anterior to inferior vena cava and numerous bulky masses are observed above this level in the lindsay, throughout the periaortic and paracaval, retroperitoneal and both iliac chain and obturator chains on.pelvis. But no bone abnormality seen and massive splenomegaly size were 22 cm., Clinically, high risk, bulky disease, Anemia, on oral iron per PMD. Because of persistent and progressive anemia, decided to proceed with systemic chemotherapy with R-CHOP, his echocardiogram showed ejection fraction 65%, As his CT scan of abdomen done on January 12, 2020 showed moderate right pleural effusion small left pleural effusion and hepatosplenomegaly and intra-abdominal lymphadenopathy. His repeat chest x-ray after second cycle of chemotherapy done on January 30, 2020 showed no evidence of pleural effusion. After consulting with Dtr Addy @ [facility] Hematology/On[facility] on 02/21/2020, Patient proceeded to complete 3 cycles of R-CHOP followed by CT PET scan on March 10, 2020 which showed modest improvement in widespread lymphomatous lymph nodes and resolution of bilateral pleural effusion and near resolution of ascites and improvement in spleen size now 15 cm compared to 20 cm before Follow-up CT PET scan done after 6 cycles of R-CHOP on May 19, 2020 showed improvement in the size of lymphomatous nodes with resolution of abnormal activity. Improvement in hepatic lesion Plan: Discussed with patient regarding his labs white blood count 5 hemoglobin 13.2 hematocrit 38.8 platelets 174,000 CMP within normal limits and follow-up CT PET scan which showed excellent response but persistent unifocal hepatic lesion Clinically, patient doing well with no new signs symptoms rather more energetic and no B symptoms his follow-up lab CBC CMP is within normal range his follow-up CT PET scan showed excellent response except unifocal hepatic lesion with significant FDG uptake although smaller in size when compared with the previous study. Concern is whether persistent lymphoma in the liver or other pathology, may benefit from ultrasound-guided liver biopsy. But at this point, we will request Dr. Albarado, lymphoma expert at [facility] to evaluate for high-dose chemotherapy with stem cell support or maintenance therapy with Rituxan alone or clinical trial or observation. Patient return to clinic after evaluation at [facility], for further discussion unless high-dose chemotherapy with stem cell is under consideration. In the meantime continue with monthly port maintenance. Signed By: Marci Mclean M.D. <<Signature on File>>
== END 2020-06-08 23:59 | disposition home or self-care (01) ==
LOC: ONCMED 05:39
PROVIDERS: PCP Nurse Practitioner Family; Visit Provider Internal Medicine Hematology & Oncology
DX: C82.28 Follicular lymphoma grade III, unspecified, lymph nodes of multiple sites (principal); D50.9 Iron deficiency anemia, unspecified; J90 Pleural effusion, not elsewhere classified; R18.8 Other ascites; Z79.899 Other long term (current) drug therapy
CPT/HCPCS: 36591; 80053; 85025; 99214

== ENCOUNTER 2022-09-02 08:59 | Oncology outpatient (recurring) (ONCR) | payer OTHER, SELFPAY | END 2022-09-08 23:59 | disposition home or self-care (01) | PROVIDERS: PCP Nurse Practitioner Family; Visit Provider Internal Medicine Medical Oncology | DX: C82.34 Follicular lymphoma grade IIIa, lymph nodes of axilla and upper limb (principal); Z92.21 Personal history of antineoplastic chemotherapy | CPT/HCPCS: 99203 ==

== ENCOUNTER → 2022-09-15 07:57 | Outpatient (BNVA) | payer OTHER, SELFPAY | PROVIDERS: PCP Nurse Practitioner Family; Visit Provider Surgery | DX: Z85.72 Personal history of non-Hodgkin lymphomas (principal); Z92.21 Personal history of antineoplastic chemotherapy | CPT/HCPCS: 99202; 99213 ==

== ENCOUNTER 2022-09-24 09:23 | Day surgery (SDC) | payer OTHER, SELFPAY ==
[2022-09-23 08:25] VITALS: BMI 30.9
[2022-09-24 09:30] VITALS: BP 131/86; PULSE 52; RESP 18; TEMP 36.3; O2SAT 96
--- NOTE | 2022-09-24 09:38 | W.PM.OPSUD ---
Surgery/Procedure H&P Update DATE OF PROCEDURE: September 24, 2022 DATE H&P PERFORMED: 12/12/19 H&P UPDATE INFORMATION: I have reviewed H&P completed within last 30 days, I have examined patient prior to procedure, No changes to prior documentation and H&P is in [facility] E[place] on date indicated PREOP DIAGNOSIS: Follicular lymphoma PLANNED PROCEDURE: Operation Date: 09/24/22 10:50 Proposed Procedures p [id number] port removal Z85.72(Not Applicable) - Satya Hendricks MD
[2022-09-24] MEDS: sodium chloride 0.9% 1,000 ML 30 ML IV (09:57)
[2022-09-24] MEDS: lidocaine-epi 1% 20 mL INJ INJECTION (12:22)
[2022-09-24] MEDS: BUPivacaine 0.25% INJ 10 mL INJECTION (12:23)
--- NOTE | 2022-09-24 12:43 | PM.OP ---
Operative Report Date of procedure: September 24, 2022 Pre-op diagnosis: Preop Diagnosis Follicular lymphoma Post-op diagnosis: Same Procedure done: Removal of subcutaneous port Specimens removed/disposition: Subcutaneous port Surgeon: Satya Hendricks MD Estimated blood loss: 5 Complications: none Findings: left subclavian subcutaneous port identified and removed. Brief History: 52 y/o M who had a left subclavian subcutaneous port for chemotherapy and is here today for removal after completing treatment more than a year ago. Procedure: Patient was taken to the operating room and her left chest was prepped and draped in a sterile manner. 1% lidocaine with epinephrine mixed with 0.25 Marcaine was infiltrated around the MediPort and catheter. Using a 15 blade the previous incision was opened, the subcutaneous tissue was divided using electrocautery and MediPort along the catheter was dissected free from the surrounding subcutaneous tissue and removed entirely. The wound was irrigated with saline, hemostasis ensured with electrocautery. A figure of 8 stitch was placed in the catheter tunnel with 3-0 Vicryl. Subcutaneous tissue was approximated using 3-0 Vicryl suture and skin was closed using interrupted subcuticular 4-0 Vicryl suture. dermabond was applied. The patient was transferred to the recovery room in stable condition.
[2022-09-24 12:46] VITALS: BP 109/65; PULSE 58; RESP 16; TEMP 36.1; O2SAT 96
[2022-09-24 12:51] VITALS: BP 104/66; PULSE 61; RESP 16; O2SAT 97
[2022-09-24 12:56] VITALS: BP 112/66; PULSE 58; RESP 16; O2SAT 95
[2022-09-24 13:00] VITALS: BP 110/72; PULSE 57; RESP 17; TEMP 36.7; O2SAT 96
[2022-09-24 13:03] VITALS: BP 110/72; PULSE 56; RESP 16; TEMP 36.7; O2SAT 99
--- NOTE | 2022-09-24 14:18 | ANES.PREANE2 ---
Pre-Anesthetic Assessment Height/Weight: Height 1.83 m Weight 103.419 kg Temp Pulse Resp BP Pulse Ox O2 Del Method 98.0 F 56 L 16 110/72 99 Room Air 09/24/22 13:03 09/24/22 13:03 09/24/22 13:03 09/24/22 13:03 09/24/22 13:03 09/24/22 13:03 Preop Diagnosis: Follicular lymphoma Operation Date: 09/24/22 10:50 Proposed Procedures p 80882 port removal Z85.72(Not Applicable) - Satya Hendricks MD Familial anesthetic complications: none Was Beta Gill taken within 24 hours: N/A Was Clonidine taken within 24 hours: N/A Last intake: Intake Last Liquid Date 09/24/22 Last Liquid Time 06:00 Last Solid Date 09/23/22 Last Solid Time 18:30 Social No alcohol and No tobacco Exam alert, oriented x 3, clear to auscultation bilaterally and regular rate & rhythm Airway Submandibular: within normal limits Cervical ROM: within normal limits Mallampati: Class II Dentition: chipped CV/HEM Anemia Chronic Renal Insufficiency Anesthetic Plan ASA status: 2 Anesthesia: MAC Medications/Allergies Home Medications Medication Instructions Recorded Confirmed Last Taken Type meloxicam 7.5 mg tablet 7.5 mg PO DAILY #5 tabs 09/24/22 Unknown Rx Allergies Allergy/AdvReac Type Severity Reaction Status Date / Time No Known Allergies Allergy Verified 09/15/22 07:58 [facility], [facility] Anesthesia Medical History Anemia Chronic diastolic CHF (congestive heart failure) -Echo (11/2019): EF=65%, G1DD, mild TR Follicular lymphoma grade 3a -on chemotherapy with CHOP -diagnosed on 10/2019 -noted elevated LFTs, previously normal; CT A/P indicates mild hepatomegaly, no intrahepatic biliary ductal dilatation, marked splenomegaly and diffuse abdominal and pelvic lymphadenopathy consistent with lymphoma, moderate right and small left pleural effusions, diffuse body wall anasarca with diffuse mesenteric edema, small amount of perihepatic and perisplenic ascites. Bulky lymphadenopathy may account for elevated LFTs Hypothyroid Stage 3b chronic kidney disease -baseline Cr-1.8 Surgical History Port-A-Cath in place -placement of PowerPort on 12/19/19 S/P lymph node biopsy (11/09/19) Family History Other CAD (coronary artery disease) Cancer Social History Smoking and tobacco status: never smoked Alcohol intake: never Substance/Drug Use: never Lives independently: Yes Household members: spouse Marital status: Current occupational status: employed Data Anesthesia Cardiac Studies: Echocardiogram Ultrasound 12/07/19
--- NOTE | 2022-09-24 14:40 | ANE.PACU2 ---
Inpatient post-anesthesia follow up: Airway intact: Yes Vital signs: Temperature 98.0 F Pulse Rate 56 Respiratory Rate 16 Blood Pressure 110/72 Pulse Oximetry 99 Oxygen Delivery Me thod Room Air Oxygen Flow Rate Fraction of Inspir ed Oxygen Hydration adequate: Yes Nausea and vomiting: No Pain level: 2 Mental status: Baseline
== END 2022-09-24 13:35 | disposition home or self-care (01) ==
PROVIDERS: PCP Nurse Practitioner Family; Visit Provider Surgery
PROC: (CPT 36589; principal; 2022-09-24 10:40)
DX: Z45.2 Encounter for adjustment and management of vascular access device (principal); C82.90 Follicular lymphoma, unspecified, unspecified site; I50.32 Chronic diastolic (congestive) heart failure
CPT/HCPCS: 36590; J2704; J3010; J3490; J7030

== ENCOUNTER → 2022-10-21 08:12 | Outpatient (BNVA) | payer OTHER, SELFPAY | PROVIDERS: PCP Nurse Practitioner Family; Visit Provider Surgery | DX: Z98.890 Other specified postprocedural states (principal) | CPT/HCPCS: 99213 ==

== ENCOUNTER 2023-02-23 08:06 | Outpatient (CLI) | payer OTHER, SELFPAY ==
[2023-02-23] MEDS: iohexol 350 mg/mL 500 mL Btl (per mL) PO (08:38)
[2023-02-23] MEDS: iohexol 350 mg/mL 500 mL Btl (per mL) IV (09:21)
--- NOTE | 2023-02-23 09:30 | CT_ITS ---
WS: [id number] CT CHEST, ABDOMEN, AND PELVIS TECHNIQUE: Contrast-enhanced CT of the chest, abdomen, and pelvis with coronal and sagittal reformatt ed images. CLINICAL INFORMATION: History of follicular involvement-surveillance COMPARISON: PET/CT 05/19/2020 DLP: 1320.[address] scans at [facility] use at least one of these dose optimization techniques: automated e xposure control; mA and/or kV adjustment per patient size (includes targeted exams where dose is matc hed to clinical indication); or iterative reconstruction. CT CHEST: Lungs are well aerated. No acute pulmonary infiltrates. No focal pneumonia or pleural fluid. Normal c aliber thoracic aorta. Proximal main pulmonary arteries are normal. No mediastinal or hilar lymphaden opathy. No axillary lymphadenopathy. CT ABDOMEN AND PELVIS: Diffuse fatty infiltration liver. Enlarged RIGHT hepatic lobe. Cholecystectomy clips. Normal spleen. Small esophageal hiatal hernia. Splenic artery calcification.Portal vein and splenic vein are patent. Normal caliber abdominal aorta. Celiac and SMA are patent. Adrenal glands are normal. Normal renal parenchymal enhancement. No hydronephrosis. RIGHT renal cyst measuring 4.1 x 3.9 cm. No hydronephrosis. Enhancing nodular prostate measuring 3.3 x 4.7 cm. Sigmoid diverticulosis. Tiny periaortic lymph node s. Normal sized inguinal lymph nodes. No adenopathy in the abdomen or pelvis. IMPRESSION: 1. No adenopathy in the chest abdomen or pelvis. 2. The lungs are well aerated. No acute pulmonary infiltrates. 3. Mild diffuse fatty filtration of the liver. Mild hepatomegaly. 4. Normal spleen. 5. Cholecystectomy clips. 6. Small esophageal hiatal hernia. 7. Enhancing nodular prostate. Recommend correlation PSA. 8. No other suspicious findings.
== END 2023-02-23 08:07 | disposition home or self-care (01) ==
LOC: RAD 08:07
PROVIDERS: PCP Nurse Practitioner Family; Visit Provider Internal Medicine Medical Oncology
DX: Z85.72 Personal history of non-Hodgkin lymphomas (principal); K44.9 Diaphragmatic hernia without obstruction or gangrene; N40.2 Nodular prostate without lower urinary tract symptoms; K76.0 Fatty (change of) liver, not elsewhere classified
CPT/HCPCS: 71260; 74177; Q9967

== ENCOUNTER 2023-09-09 11:20 | Oncology outpatient (recurring) (ONCR) | payer OTHER, SELFPAY ==
[2023-09-09 11:40] LABS: Basophils % 0.3 %; Eosinophils # 0.2 10^3/uL (0.0-0.8); Eosinophils % 2.2 %; Hematocrit 45.6 % (37-53); Lymphocytes # 2.2 10^3/uL (0.8-4.8); Lymphocytes % 27.5 %; Mean Corpuscular HGB Conc 34.4 g/dL (30-55); Mean Corpuscular Hemoglobin 30.7 pg (27-33); Mean Corpuscular Volume 89.1 fl (82-101); Mean Platelet Volume 9.8 fL (7.4-10.4); Monocytes # 0.4 10^3/uL (0.2-0.9); Monocytes % 5.3 %; Neutrophils # 5.07 10^3/uL (1.8-7.7); Neutrophils % 64.3 %; Nucleated Red Blood Cells % 0 %; Platelet Count 209 10^3/cmm (157-399); Red Blood Count 5.12 10^6/uL (3.85-5.65); Red Cell Distribution Width 12.4 % (12.1-15.1); White Blood Count 7.88 10^3/uL (3.29-11.43)
[2023-09-09 12:00] LABS: Alanine Aminotransferase 13 U/L (0-41); Albumin Level 4.6 g/dL (3.5-5.2); Alkaline Phosphatase 59 U/L (40-130); Anion Gap 16.4 (5-19); Aspartate Amino Transferase 14 U/L (0-40); Blood Urea Nitrogen 16 mg/dL (6-20); Carbon Dioxide 22 mmol/L (22-29); Chloride 104 mmol/L (98-107); Globulin 2.1 g/dL (1.3-4.6); Glomerular Filtration Rate 62.9 mL/min (90-130); Glucose 103 mg/dL (65-115); Osmolality Calculated 287 mOsm/kg (285-295); Potassium 4.4 mmol/L (3.5-5.1); Sodium 138 mmol/L (136-145); Total Bilirubin 0.9 mg/dL (0.15-1.2); Total Protein 6.7 g/dL (6.6-8.7)
== END 2023-09-09 23:59 | disposition home or self-care (01) ==
PROVIDERS: PCP Nurse Practitioner Family; Visit Provider Nurse Practitioner Family
DX: C82.38 Follicular lymphoma grade IIIa, lymph nodes of multiple sites (principal); Z92.21 Personal history of antineoplastic chemotherapy
CPT/HCPCS: 36415; 80053; 85025; 99214

== ENCOUNTER 2024-03-03 14:00 | Oncology outpatient (recurring) (ONCR) | payer OTHER, SELFPAY ==
[2024-02-16] MEDS: iohexol 350 mg/mL 500 mL Btl (per mL) PO (14:19)
--- NOTE | 2024-02-16 14:30 | CTR_ITS ---
PROCEDURE INFORMATION: Exam: CT Chest Without Contrast; Diagnostic Exam date and time: 02/16/2024 2:38 PM Age: 53 years old Clinical indication: Condition or disease; Cancer; Other: Lymphoma; Prior surgery; Surgery date: 6+ months; Surgery type: Port removed, gb, hernia; Additional info: Surveillance TECHNIQUE: Imaging protocol: Diagnostic computed tomography of the chest without contrast. Radiation optimization: All CT scans at this facility use at least one of these dose optimization techniques: automated exposure control; mA and/or kV adjustment per patient size (includes targeted exams where dose is matched to clinical indication); or iterative reconstruction. COMPARISON: CT chest abdpel w/*[id number] 02/23/2023 9:18 AM RADIATION DOSE METRICS: Total DLP (mGy-cm): 1113.58 FINDINGS: Lungs: Unremarkable. No consolidation. No masses. Pleural spaces: Unremarkable. No pneumothorax. No pleural effusion. Heart: Unremarkable. No cardiomegaly. No pericardial effusion. Coronary arteries: There is atherosclerotic calcification coronary arteries. Lymph nodes: Unremarkable. No enlarged lymph nodes. Vasculature: Unremarkable. No aortic aneurysm. Bones/joints: Unremarkable. No acute fracture. Soft tissues: Unremarkable. PROCEDURE INFORMATION: Exam: CT Abdomen And Pelvis Without Contrast Exam date and time: 02/16/2024 2:38 PM Age: 53 years old Clinical indication: Condition or disease; Cancer; Other: Lymphoma; Prior surgery; Surgery date: 6+ months; Surgery type: Port removed, gb, hernia; Additional info: Surveillance TECHNIQUE: Imaging protocol: Computed tomography of the abdomen and pelvis without contrast. Radiation optimization: All CT scans at this facility use at least one of these dose optimization techniques: automated exposure control; mA and/or kV adjustment per patient size (includes targeted exams where dose is matched to clinical indication); or iterative reconstruction. COMPARISON: CT chest abdpel w/*[id number] 02/23/2023 9:18 AM RADIATION DOSE METRICS: Total DLP (mGy-cm): 1113.58 FINDINGS: Diaphragm: There is a small hiatal hernia. Liver: Normal. No mass. Gallbladder and biliary ducts: There has been cholecystectomy. Pancreas: Normal. No ductal dilation. Spleen: Spleen is at the upper limits of normal in size. This is unchanged. Adrenal glands: Normal. No mass. Kidneys and ureters: 4 cm right renal cysts. Kidneys otherwise normal. Stomach and bowel: Moderate diverticulosis is noted. No evidence of diverticulitis. No obstruction. Appendix: No evidence of appendicitis. Intraperitoneal space: Unremarkable. No free air. No significant fluid collection. Vasculature: Scattered phleboliths in the pelvis noted. Lymph nodes: Mild induration of the periaortic retroperitoneal fat with shotty lymph nodes decreased from prior exam. No lymphadenopathy. Urinary bladder: Unremarkable as visualized. Reproductive: Mild prostate hypertrophy noted. Bones/joints: Unremarkable. No acute fracture. Soft tissues: Small fat containing umbilical hernia without stranding or evidence of incarceration. A small fat containing right inguinal hernia is noted. CT/[place] [id number] IMPRESSION: 1. No acute findings. 2. No lymphadenopathy. IMPRESSION: 1. No acute findings. 2. Spleen is at the upper limits of normal in size. This is unchanged. 3. Mild induration of the periaortic retroperitoneal fat with shotty lymph nodes decreased from prior exam. No lymphadenopathy. 4. Diverticulosis without evidence diverticulitis. COMMENTS: Consistent with the [employer]'s Incidental Findings Committee white paper (J Am Zari Radiol 2018): Any incidental renal lesion less than 1 cm or classified as too small to characterize, or any incidental cystic renal lesion characterized as simple-appearing, is likely benign. No follow-up imaging is recommended for these lesions per consensus recommendations based on imaging criteria.
[2024-03-03 14:21] LABS: Basophils % 0.4 %; Eosinophils # 0.2 10^3/uL (0.0-0.8); Eosinophils % 2.2 %; Lymphocytes # 2.6 10^3/uL (0.8-4.8); Lymphocytes % 38.4 %; Mean Corpuscular HGB Conc 34.2 g/dL (30-55); Mean Corpuscular Hemoglobin 30.7 pg (27-33); Mean Corpuscular Volume 89.6 fl (82-101); Mean Platelet Volume 9.7 fL (7.4-10.4); Monocytes # 0.4 10^3/uL (0.2-0.9); Monocytes % 6.1 %; Neutrophils # 3.55 10^3/uL (1.8-7.7); Neutrophils % 52.6 %; Nucleated Red Blood Cells % 0 %; Platelet Count 204 10^3/cmm (157-399); Red Blood Count 5.02 10^6/uL (3.85-5.65); Red Cell Distribution Width 12.4 % (12.1-15.1); White Blood Count 6.75 10^3/uL (3.29-11.43)
[2024-03-03 14:37] LABS: Alanine Aminotransferase 14 U/L (0-41); Albumin Level 4.4 g/dL (3.5-5.2); Alkaline Phosphatase 57 U/L (40-130); Aspartate Amino Transferase 14 U/L (0-40); Blood Urea Nitrogen 14 mg/dL (6-20); Carbon Dioxide 24 mmol/L (22-29); Chloride 105 mmol/L (98-107); Creatinine Clr Calc Pharmacy 88.3437; Glomerular Filtration Rate 62.9 mL/min (90-130); Glucose 90 mg/dL (65-115); Lactate Dehydrogenase 111 U/L (135-225); Osmolality Calculated 290 mOsm/kg (285-295); Sodium 140 mmol/L (136-145); Total Bilirubin 0.3 mg/dL (0.15-1.2); Total Protein 6.4 g/dL (6.6-8.7)
== END 2024-03-11 23:59 | disposition home or self-care (01) ==
PROVIDERS: PCP Nurse Practitioner Family; Visit Provider Nurse Practitioner Family
DX: Z53.9 Procedure and treatment not carried out, unspecified reason; Z08 Encounter for follow-up examination after completed treatment for malignant neoplasm; Z85.72 Personal history of non-Hodgkin lymphomas; D64.9 Anemia, unspecified; Z92.21 Personal history of antineoplastic chemotherapy
CPT/HCPCS: 36415; 71250; 74176; 80053; 83615; 85025; 99213

== ENCOUNTER 2024-09-01 12:26 | Oncology outpatient (recurring) (ONCR) | payer OTHER, SELFPAY ==
[2024-09-01 12:40] LABS: Hematocrit 45.9 % (37-53); Hemoglobin 15.50 g/dL (11.27-16.99); Mean Corpuscular HGB Conc 33.8 g/dL (30-55); Mean Corpuscular Hemoglobin 30.9 pg (27-33); Mean Corpuscular Volume 91.4 fl (82-101); Nucleated Red Blood Cells % 0 %; Platelet Count 195 10^3/cmm (157-399); Red Blood Count 5.02 10^6/uL (3.85-5.65); White Blood Count 8.82 10^3/uL (3.29-11.43)
[2024-09-01 12:58] LABS: Alanine Aminotransferase 13 U/L (0-41); Albumin Level 4.5 g/dL (3.5-5.2); Alkaline Phosphatase 51 U/L (40-130); Anion Gap 16.3 (5-19); Aspartate Amino Transferase 17 U/L (0-40); Blood Urea Nitrogen 14 mg/dL (6-20); Calcium 9.2 mg/dL (8.5-10.5); Carbon Dioxide 24 mmol/L (22-29); Chloride 102 mmol/L (98-107); Globulin 2.2 g/dL (1.3-4.6); Glucose 90 mg/dL (65-115); Osmolality Calculated 286 mOsm/kg (285-295); Potassium 4.3 mmol/L (3.5-5.1); Sodium 138 mmol/L (136-145); Total Protein 6.7 g/dL (6.6-8.7)
== END 2024-09-08 23:59 | disposition home or self-care (01) ==
PROVIDERS: PCP Nurse Practitioner Family; Visit Provider Nurse Practitioner Family
DX: Z85.72 Personal history of non-Hodgkin lymphomas (principal); Z92.21 Personal history of antineoplastic chemotherapy; Z95.828 Presence of other vascular implants and grafts
CPT/HCPCS: 36415; 80053; 83615; 85025; 99214